=== PATIENT | female | born 1980 | race Caucasian/White ===

== ENCOUNTER 2018-05-01 22:45 | Emergency (ER) | payer OTHER ==
[2018-05-02] MEDS ORDERED: diphenhydrAMINE 50 MG/ML 1 ML VIAL IVP STA (00:10)
[2018-05-02] MEDS ORDERED: SODIUM CHLORIDE 0.9% 500 ML 500 ML IV STA (00:10)
[2018-05-02] MEDS ORDERED: METOCLOPRAMIDE 5 MG/ML 2 ML VIAL IVP STA (00:10)
[2018-05-02] MEDS ORDERED: ENALAPRILAT 1.25 MG/ML 1 ML VIAL IVP STA (00:10)
[2018-05-02] MEDS ORDERED: LISINOPRIL 20 MG TAB PO STA (00:20)
[2018-05-02] MEDS ORDERED: IBUPROFEN 800 MG TAB PO STA (00:20)
[2018-05-02] MEDS ORDERED: ACETAMINOPHEN TAB 325 MG TAB PO STA (00:20)
--- NOTE | 2018-05-02 00:22 | ED ---
Headache HPI - General Chief Complaint: Headache Stated Complaint: headache Time Seen by Provider: 05/02/18 00:09 Mode of arrival: ambulatory Limitations: no limitations - History of Present Illness Initial Comments: to 38-year-old woman with history of hypertension and previous headaches, who presents to be evaluated for headache. Patient states that the pain is aching, bifrontal, moderate intensity. She states she has had these previously especially when her blood pressure is out of control. She states that she has run out of her usual medication as she hasn't been able to see her physician for a couple of months. Patient denies any new symptoms. This is not the worst headache she has ever had. She does have some associated photophobia. No fever or chills, neck stiffness, or neurologic complaints. He did try taking some aspirin at home which only gave some very minimal relief. Complaint: headache -: hour(s) Onset Description: gradual Location: right, left, frontal Severity: moderate Quality: aching Consistency: constant Improves With: nothing Worsens With: light Context: occurred at rest Associated Symptoms: photophobia Treatments Prior to Arrival: other (Aspirin) - Related Data Home Medications Medication Instructions Recorded Confirmed Lisinopril [Zestril] 5 mg PO DAILY 10/16/14 05/01/18 Previous Rx's Medication Instructions Recorded Lisinopril 20 mg PO DAILY #30 tab 05/02/18 Allergies Allergy/AdvReac Type Severity Reaction Status Date / Time codeine Allergy Itching Verified 05/01/18 22:53 Review of Systems ROS Statement: Those systems with pertinent positive or pertinent negative responses have been documented in the HPI. ROS Other: All systems not noted in ROS Statement are negative. Constitutional: Denies: fever, chills, weakness Eyes: Denies: eye pain, vision change ENT: Denies: ear pain, hearing loss Respiratory: Denies: cough Cardiovascular: Denies: chest pain, palpitations, syncope Gastrointestinal: Denies: abdominal pain, nausea, vomiting Musculoskeletal: Denies: back pain Skin: Denies: rash Neurological: Reports: headache. Denies: weakness, numbness, paresthesias, confusion, vertigo Past Medical History Past Medical History: Hypertension History of Any Multi-Drug Resistant Organisms: None Reported Past Surgical History: Section, Hernia Repair Past Psychological History: No Psychological Hx Reported Smoking Status: Former smoker Past Alcohol Use History: Occasional Past Drug Use History: None Reported General Exam Limitations: no limitations General appearance: alert, in no apparent distress, obese Head exam: Present: atraumatic, normocephalic Eye exam: Present: normal appearance. Absent: scleral icterus, conjunctival injection Pupils: Present: other (Unable to perform funduscopic exam secondary to photophobia) ENT exam: Present: normal oropharynx, mucous membranes moist Neck exam: Present: full ROM. Absent: tenderness, meningismus Respiratory exam: Present: normal lung sounds bilaterally. Absent: respiratory distress, wheezes, rales, rhonchi, stridor Cardiovascular Exam: Present: regular rate, normal rhythm, normal heart sounds. Absent: systolic murmur, diastolic murmur, rubs, gallop GI/Abdominal exam: Present: soft. Absent: tenderness, pulsatile mass Extremities exam: Present: normal inspection. Absent: pedal edema, calf tenderness Neurological exam: Present: alert, oriented X3, CN II-XII intact. Absent: motor sensory deficit Skin exam: Present: warm, dry, intact, normal color. Absent: rash Course Vital Signs 05/01/18 22:51 Temperature 97.9 F Pulse Rate 83 Respiratory 20 Rate Blood Pressure 189/108 O2 Sat by Pulse 99 Oximetry Disposition Clinical Impression: Hypertension Disposition: HOME SELF-CARE Condition: Good Instructions: Acute Headache (ED), Hypertension (ED) Prescriptions: Lisinopril 20 mg PO DAILY #30 tab Is patient prescribed a controlled substance at d/c from ED?: No Referrals: Elizabeth Mata MD [Primary Care Provider] - 1-2 days
[2018-05-02 01:43] VITALS: BP 146/86; PULSE 69; RESP 18
[2018-05-02 02:02] VITALS: TEMP 98
== END 2018-05-02 02:02 | disposition home or self-care (01) ==
LOC: EC 22:45
DX: I10 Essential (primary) hypertension (principal); R51 Headache; H53.149 Visual discomfort, unspecified; Z87.891 Personal history of nicotine dependence; Z79.899 Other long term (current) drug therapy; Z88.5 Allergy status to narcotic agent
CPT/HCPCS: 99283

== ENCOUNTER 2019-01-14 07:46 | Emergency (ER) | payer OTHER ==
[2019-01-14 07:53] VITALS: BP 136/88; PULSE 97; RESP 16; TEMP 98.7
[2019-01-14] MEDS ORDERED: SODIUM CHLORIDE 0.9% 1,000 ML IV STA (07:54)
[2019-01-14] MEDS ORDERED: KETOROLAC 30 MG/ML 1 ML VIAL IVP STA (08:06)
--- NOTE | 2019-01-14 08:10 | ED ---
Abdominal Pain HPI - General Chief Complaint: Abdominal Pain Stated Complaint: LT side flank pain Time Seen by Provider: 01/14/19 07:53 Source: patient, RN notes reviewed Mode of arrival: ambulatory Limitations: no limitations - History of Present Illness Initial Comments: 38-year-old female presents emergency Department chief complaint of left lower abdominal pain. Patient states that this pain has been ongoing since yesterday around noon. Patient states his Appointment with unbearable at this first when she sits forward or walks. Patient has no back pain no side pain. Patient denies any nausea vomiting diarrhea constipation and she has had a prior hernia repair on the right no other prior abdominal surgeries. Patient denies any chance she currently isn't her menstrual cycle. Patient denies any history of diverticulitis or colitis - Related Data Home Medications Medication Instructions Recorded Confirmed Lisinopril [Zestril] 5 mg PO DAILY 10/16/14 05/01/18 Previous Rx's Medication Instructions Recorded Lisinopril 20 mg PO DAILY #30 tab 05/02/18 Ciprofloxacin HCl [Cipro] 500 mg PO Q12HR #20 tablet 01/14/19 metroNIDAZOLE [Flagyl] 500 mg PO TID #30 tab 01/14/19 Allergies Allergy/AdvReac Type Severity Reaction Status Date / Time codeine Allergy Itching Verified 01/14/19 07:53 Review of Systems ROS Statement: Those systems with pertinent positive or pertinent negative responses have been documented in the HPI. ROS Other: All systems not noted in ROS Statement are negative. Past Medical History Past Medical History: Hypertension History of Any Multi-Drug Resistant Organisms: None Reported Past Surgical History: Section, Hernia Repair Past Psychological History: No Psychological Hx Reported Smoking Status: Former smoker Past Alcohol Use History: Occasional Past Drug Use History: None Reported General Exam Limitations: no limitations General appearance: alert, in no apparent distress Head exam: Present: atraumatic, normocephalic, normal inspection Eye exam: Present: normal appearance, PERRL, EOMI. Absent: scleral icterus, conjunctival injection, periorbital swelling ENT exam: Present: normal exam, normal oropharynx, mucous membranes moist Neck exam: Present: normal inspection. Absent: tenderness, meningismus, lymphadenopathy Respiratory exam: Present: normal lung sounds bilaterally. Absent: respiratory distress, wheezes, rales, rhonchi, stridor Cardiovascular Exam: Present: regular rate, normal rhythm, normal heart sounds. Absent: systolic murmur, diastolic murmur, rubs, gallop, clicks GI/Abdominal exam: Present: soft, tenderness (Moderate left lower quadrant), normal bowel sounds. Absent: distended, guarding, rebound, rigid Back exam: Absent: CVA tenderness (R), CVA tenderness (L) Neurological exam: Present: alert, oriented X3, CN II-XII intact Skin exam: Present: warm, dry, intact, normal color. Absent: rash Course Vital Signs 01/14/19 07:51 Temperature 98.7 F Pulse Rate 97 Respiratory 16 Rate Blood Pressure 136/88 O2 Sat by Pulse 98 Oximetry Medical Decision Making - Medical Decision Making 38-year-old female presented from for left lower abdominal pain. Patient has mild to moderate uncomfortable. Diverticulitis. Patient started on Cipro and Flagyl. Patient we discharged with tramadol starter pack. Patient will follow- up with PCP return for any worsening symptoms. - Lab Data Result diagrams: 01/14/19 08:17 01/14/19 08:17 Lab Results 01/14/19 01/14/19 01/14/19 Range/Units 08:17 08:17 08:35 WBC 14.5 H (3.8-10.6) k/uL RBC 4.15 (3.80-5.40) m/uL Hgb 12.6 (11.4-16.0) gm/dL Hct 37.8 (34.0-46.0) % MCV 91.0 (80.0-100.0) fL MCH 30.4 (25.0-35.0) pg MCHC 33.4 (31.0-37.0) g/dL RDW 13.6 (11.5-15.5) % Plt Count 230 (150-450) k/uL Neutrophils % 79 % Lymphocytes % 12 % Monocytes % 7 % Eosinophils % 1 % Basophils % 0 % Neutrophils # 11.5 H (1.3-7.7) k/uL Lymphocytes # 1.7 (1.0-4.8) k/uL Monocytes # 1.0 (0-1.0) k/uL Eosinophils # 0.2 (0-0.7) k/uL Basophils # 0.0 (0-0.2) k/uL Sodium 140 (137-145) mmol/L Potassium 4.4 (3.5-5.1) mmol/L Chloride 108 H (98-107) mmol/L Carbon Dioxide 22 (22-30) mmol/L Anion Gap 10 mmol/L BUN 13 (7-17) mg/dL Creatinine 0.79 (0.52-1.04) mg/dL Est GFR (CKD-EPI)AfAm >90 (>60 ml/min/1.73 sqM) Est GFR (CKD-EPI)NonAf >90 (>60 ml/min/1.73 sqM) Glucose 132 H (74-99) mg/dL Calcium 9.1 (8.4-10.2) mg/dL Total Bilirubin 0.9 (0.2-1.3) mg/dL AST 21 (14-36) U/L ALT 22 (9-52) U/L Alkaline Phosphatase 59 (38-126) U/L Total Protein 7.0 (6.3-8.2) g/dL Albumin 4.0 (3.5-5.0) g/dL Lipase 59 (23-300) U/L Urine Color Urine Appearance (Clear) Urine pH (5.0-8.0) Ur Specific [place] (1.001-1.035) Urine Protein (Negative) Urine Glucose (UA) (Negative) Urine Ketones (Negative) Urine Blood (Negative) Urine Nitrite (Negative) Urine Bilirubin (Negative) Urine Urobilinogen (<2.0) mg/dL Ur Leukocyte Esterase (Negative) Urine RBC (0-5) /hpf Urine WBC (0-5) /hpf Ur Squamous Epith Cells (0-4) /hpf Urine Mucus (None) /hpf Urine HCG, Qual Not Detected (Not Detectd) 01/14/19 Range/Units 08:35 WBC (3.8-10.6) k/uL RBC (3.80-5.40) m/uL Hgb (11.4-16.0) gm/dL Hct (34.0-46.0) % MCV (80.0-100.0) fL MCH (25.0-35.0) pg MCHC (31.0-37.0) g/dL RDW (11.5-15.5) % Plt Count (150-450) k/uL Neutrophils % % Lymphocytes % % Monocytes % % Eosinophils % % Basophils % % Neutrophils # (1.3-7.7) k/uL Lymphocytes # (1.0-4.8) k/uL Monocytes # (0-1.0) k/uL Eosinophils # (0-0.7) k/uL Basophils # (0-0.2) k/uL Sodium (137-145) mmol/L Potassium (3.5-5.1) mmol/L Chloride (98-107) mmol/L Carbon Dioxide (22-30) mmol/L Anion Gap mmol/L BUN (7-17) mg/dL Creatinine (0.52-1.04) mg/dL Est GFR (CKD-EPI)AfAm (>60 ml/min/1.73 sqM) Est GFR (CKD-EPI)NonAf (>60 ml/min/1.73 sqM) Glucose (74-99) mg/dL Calcium (8.4-10.2) mg/dL Total Bilirubin (0.2-1.3) mg/dL AST (14-36) U/L ALT (9-52) U/L Alkaline Phosphatase (38-126) U/L Total Protein (6.3-8.2) g/dL Albumin (3.5-5.0) g/dL Lipase (23-300) U/L Urine Color Yellow Urine Appearance Cloudy H (Clear) Urine pH 5.5 (5.0-8.0) Ur Specific [place] 1.023 (1.001-1.035) Urine Protein Trace H (Negative) Urine Glucose (UA) Negative (Negative) Urine Ketones Negative (Negative) Urine Blood Small H (Negative) Urine Nitrite Negative (Negative) Urine Bilirubin Negative (Negative) Urine Urobilinogen <2.0 (<2.0) mg/dL Ur Leukocyte Esterase Negative (Negative) Urine RBC 1 (0-5) /hpf Urine WBC 5 (0-5) /hpf Ur Squamous Epith Cells 10 H (0-4) /hpf Urine Mucus Occasional H (None) /hpf Urine HCG, Qual (Not Detectd) Disposition Clinical Impression: Abdominal pain, Diverticulitis Disposition: HOME SELF-CARE Condition: Stable Instructions (If sedation given, give patient instructions): Diverticulitis Diet (ED), Diverticulitis (ED) Additional Instructions: Please return to the Emergency Department if symptoms worsen or any other concerns. Prescriptions: Ciprofloxacin HCl [Cipro] 500 mg PO Q12HR #20 tablet metroNIDAZOLE [Flagyl] 500 mg PO TID #30 tab Is patient prescribed a controlled substance at d/c from ED?: No Referrals: Elizabeth Mata MD [Primary Care Provider] - 1-2 days Time of Disposition: 09:22
[2019-01-14 08:25] LABS: Basophils % (A) 0 %; Eosinophils # (A) 0.2 k/uL (0-0.7); Eosinophils % (A) 1 %; HCT 37.8 % (34.0-46.0); HGB 12.6 gm/dL (11.4-16.0); Lymphocytes # (A) 1.7 k/uL (1.0-4.8); Lymphocytes % (A) 12 %; MCH 30.4 pg (25.0-35.0); MCHC 33.4 g/dL (31.0-37.0); Mean Platelet Volume 7.9; Monocytes % (A) 7 %; Neutrophils # (A) 11.5 k/uL (1.3-7.7); Neutrophils % (A) 79 %; Platelet Count 230 k/uL (150-450); RBC 4.15 m/uL (3.80-5.40); RDW 13.6 % (11.5-15.5); WBC 14.5 k/uL (3.8-10.6)
[2019-01-14 08:34] LABS: African American GFR (CKD) >90 (>60 ml/min/1.73 sqM); Anion Gap 10 mmol/L; Blood Urea Nitrogen 13 mg/dL (7-17); Calcium 9.1 mg/dL (8.4-10.2); Carbon Dioxide 22 mmol/L (22-30); Chloride 108 mmol/L (98-107); Glucose 132 mg/dL (74-99); Lipase 59 U/L (23-300); Sodium 140 mmol/L (137-145); Total Bilirubin 0.9 mg/dL (0.2-1.3)
[2019-01-14 08:36] LABS: ALT 22 U/L (9-52); AST 21 U/L (14-36); Potassium 4.4 mmol/L (3.5-5.1)
[2019-01-14 08:37] LABS: Alkaline Phosphatase 59 U/L (38-126)
[2019-01-14 08:43] LABS: Appearance,Urine Cloudy (Clear); Bilirubin,Urine Negative (Negative); Blood,Urine Small (Negative); Color,Urine Yellow; Glucose,Urine (UA) Negative (Negative); Ketones,Urine Negative (Negative); Leukocyte Esterase,Urine Negative (Negative); Mucus,Urine Occasional /hpf; Nitrite,Urine Negative (Negative); PH, Urine 5.5 (5.0-8.0); Protein,Urine Trace (Negative); RBC,Urine 1 /hpf (0-5); Specific Gravity,Urine 1.023 (1.001-1.035); Squamous Epithelial Cell,Urine 10 /hpf (0-4); Urobilinogen,Urine <2.0 mg/dL (<2.0)
--- NOTE | 2019-01-14 09:14 | CT ---
EXAMINATION TYPE: CT abdomen pelvis w con DATE OF EXAM: 01/14/2019 HISTORY: LLQ pain CT DLP: 1877mGycm Automated Exposure Control for Dose Reduction was Utilized. CONTRAST: CT scan of the abdomen and pelvis is performed without oral but with IV Contrast, patient injected wi th 100 mL of Isovue 300. COMPARISON: None FINDINGS: LUNG BASES: No significant abnormality is appreciated. LIVER/GB: No significant abnormality is appreciated. PANCREAS: No significant abnormality is seen. SPLEEN: No significant abnormality is seen. ADRENALS: No significant abnormality is seen. KIDNEYS: No significant abnormality is seen. BOWEL: Evaluation bowel slightly suboptimal secondary to lack of enteric contrast. Small hiatal herni a is present axial image 7. Stomach is poorly distended but suboptimally evaluated. Appendix not well -visualized and may be surgically absent. There are few scattered diverticula throughout the entire c olon including right-sided colonic diverticula. There is moderate wall thickening with mild/moderate ill-defined fluid and fat stranding in the left lower quadrant at junction of left and sigmoid colon seen best near coronal image 38 and axial image 52. No well-formed fluid collection or abscess is see n. No pneumoperitoneum is noted. UTERUS/ADNEXA: Anteverted uterus is present tubal ligation clip in the left periphery is seen. Displa arnulfo clip into the anterior pelvis just right of midline axial image 68 is noted. Ovaries are normal i n size. LYMPH NODES: No greater than 1cm abdominal or pelvic lymph nodes are appreciated. OSSEOUS STRUCTURES: Sclerosis running sacroiliac joints inferiorly, left greater than right favors os teitis condensans ilii given no significant asymmetric narrowing is present bilaterally. OTHER: Tiny fat-containing umbilical hernia is seen. IMPRESSION: CT findings consistent with a mild to moderate uncomplicated acute diverticulitis near th e junction of left and sigmoid colon in the left lower quadrant as detailed above.
[2019-01-14] MEDS ORDERED: traMADol 50 MG STARTER PACK 3 TAB BTL PO STA (09:22)
== END 2019-01-14 09:36 | disposition home or self-care (01) ==
LOC: EC 07:46
DX: K57.92 Diverticulitis of intestine, part unspecified, without perforation or abscess without bleeding (principal); I10 Essential (primary) hypertension; Z87.891 Personal history of nicotine dependence; Z79.899 Other long term (current) drug therapy; Z88.5 Allergy status to narcotic agent
CPT/HCPCS: 36415; 80053; 83690; 85025; 81001; 81025; 74177; 99284; 96374; 96361; J1885; Q9967

== ENCOUNTER 2019-01-17 12:52 | Inpatient (IN) | payer OTHER ==
[2019-01-17] MEDS ORDERED: IOPAMIDOL-300 CONTRAST 30 ML VIAL (ORAL USE) PO PRN (13:26)
[2019-01-17] MEDS ORDERED: SODIUM CHLORIDE 0.9% 1,000 ML IV ONE (13:26)
[2019-01-17] MEDS ORDERED: ONDANSETRON 4 MG/2 ML VIAL IVP STA (13:26)
[2019-01-17] MEDS ORDERED: traMADol 50 MG TAB PO STA (13:31)
--- NOTE | 2019-01-17 13:35 | ED ---
Abdominal Pain HPI - General Chief Complaint: Abdominal Pain Stated Complaint: Constipation Time Seen by Provider: 01/17/19 13:18 Source: patient, family Mode of arrival: ambulatory Limitations: no limitations - History of Present Illness Initial Comments: Patient is a 38-year-old female presents with a chief complaint of left lower quadrant abdominal pain. The patient was evaluated on Saturday and diagnosed with diverticulitis. She was started on antibiotics and discharged home. Patient states that since that time despite the antibiotic she has not improved. She has worsening pain in the left lower quadrant. She states she has had subjective fevers and chills at night. Her last bowel movement was Saturday. Her pain is aggravated by movement and certain positions. There are no alleviating factors. - Related Data Home Medications Medication Instructions Recorded Confirmed Lisinopril [Zestril] 5 mg PO DAILY 10/16/14 05/01/18 Previous Rx's Medication Instructions Recorded Lisinopril 20 mg PO DAILY #30 tab 05/02/18 Ciprofloxacin HCl [Cipro] 500 mg PO Q12HR #20 tablet 01/14/19 metroNIDAZOLE [Flagyl] 500 mg PO TID #30 tab 01/14/19 Allergies Allergy/AdvReac Type Severity Reaction Status Date / Time codeine Allergy Itching Verified 01/14/19 07:53 Review of Systems ROS Statement: Those systems with pertinent positive or pertinent negative responses have been documented in the HPI. ROS Other: All systems not noted in ROS Statement are negative. Constitutional: Reports: fever, chills Gastrointestinal: Reports: abdominal pain, nausea, vomiting, constipation Past Medical History Past Medical History: Hypertension History of Any Multi-Drug Resistant Organisms: None Reported Past Surgical History: Section, Hernia Repair Past Psychological History: No Psychological Hx Reported Smoking Status: Former smoker Past Alcohol Use History: Occasional Past Drug Use History: None Reported General Exam Limitations: no limitations General appearance: alert, in no apparent distress Head exam: Present: atraumatic, normocephalic Eye exam: Present: normal appearance ENT exam: Present: normal exam Neck exam: Present: normal inspection Respiratory exam: Present: normal lung sounds bilaterally. Absent: respiratory distress Cardiovascular Exam: Present: regular rate, normal rhythm GI/Abdominal exam: Present: soft, tenderness (Patient has tenderness in the left lower quadrant. There are no overlying skin changes, no crepitus felt). Absent: distended Rectal exam: Present: deferred External exam: Present: normal external exam Extremities exam: Present: normal inspection Back exam: Present: normal inspection Neurological exam: Present: alert, oriented X3, CN II-XII intact Psychiatric exam: Present: normal affect, normal mood Skin exam: Present: warm, dry, intact Course Vital Signs 01/17/19 01/17/19 13:06 14:58 Temperature 97.6 F Pulse Rate 82 63 Respiratory 18 18 Rate Blood Pressure 136/81 135/82 O2 Sat by Pulse 97 97 Oximetry Medical Decision Making - Medical Decision Making Patient presents with a chief complaint of abdominal pain and a recent diagnosis of diverticulitis. Despite antibiotic therapy, she is not improved. Initial vital signs are stable, patient is in mild distress secondary to pain. She will be evaluated with basic labs including a computed tomography scan of the abdomen and pelvis with IV and oral contrast. Review of her recent visits showed a CAT scan without contrast that showed evidence of mild to moderate diverticulitis. 2:55 PM Lab evaluation of this patient shows red blood cells of 11.7 with neutrophils of 8.8. Urinalysis shows evidence of infection however labs are otherwise unremarkable. On reevaluation, the patient is comfortable. Computed tomography scan of the abdomen and pelvis shows free air within the abdominal cavity likely secondary to microperforation of the affected area. Results discussed with the patient, she was started on Zosyn, made nothing by mouth, and started on 100 mL per hour of normal saline. We'll discuss with surgery on-call. 3 PM Case discussed with Dr. Daugherty who accepts admission with Dr. Dent on consult for medical management. Patient aware of the findings and care plan, she is agreeable. - Lab Data Result diagrams: 01/17/19 13:45 01/17/19 13:45 Lab Results 01/17/19 01/17/19 01/17/19 Range/Units 13:45 13:45 13:52 WBC 11.7 H (3.8-10.6) k/uL RBC 4.12 (3.80-5.40) m/uL Hgb 12.4 (11.4-16.0) gm/dL Hct 38.0 (34.0-46.0) % MCV 92.0 (80.0-100.0) fL MCH 30.2 (25.0-35.0) pg MCHC 32.8 (31.0-37.0) g/dL RDW 12.5 (11.5-15.5) % Plt Count 266 (150-450) k/uL Neutrophils % 75 % Lymphocytes % 14 % Monocytes % 7 % Eosinophils % 2 % Basophils % 0 % Neutrophils # 8.8 H (1.3-7.7) k/uL Lymphocytes # 1.6 (1.0-4.8) k/uL Monocytes # 0.8 (0-1.0) k/uL Eosinophils # 0.3 (0-0.7) k/uL Basophils # 0.1 (0-0.2) k/uL Sodium 140 (137-145) mmol/L Potassium 4.0 (3.5-5.1) mmol/L Chloride 105 (98-107) mmol/L Carbon Dioxide 24 (22-30) mmol/L Anion Gap 11 mmol/L BUN 9 (7-17) mg/dL Creatinine 0.82 (0.52-1.04) mg/dL Est GFR (CKD-EPI)AfAm >90 (>60 ml/min/1.73 sqM) Est GFR (CKD-EPI)NonAf >90 (>60 ml/min/1.73 sqM) Glucose 111 H (74-99) mg/dL Calcium 9.2 (8.4-10.2) mg/dL Total Bilirubin 0.5 (0.2-1.3) mg/dL AST 12 L (14-36) U/L ALT 23 (9-52) U/L Alkaline Phosphatase 57 (38-126) U/L Total Protein 6.7 (6.3-8.2) g/dL Albumin 3.9 (3.5-5.0) g/dL Lipase 52 (23-300) U/L Urine Color Urine Appearance (Clear) Urine pH (5.0-8.0) Ur Specific [place] (1.001-1.035) Urine Protein (Negative) Urine Glucose (UA) (Negative) Urine Ketones (Negative) Urine Blood (Negative) Urine Nitrite (Negative) Urine Bilirubin (Negative) Urine Urobilinogen (<2.0) mg/dL Ur Leukocyte Esterase (Negative) Urine RBC (0-5) /hpf Urine WBC (0-5) /hpf Ur Squamous Epith Cells (0-4) /hpf Urine Bacteria (None) /hpf Urine Mucus (None) /hpf Urine HCG, Qual Not Detected (Not Detectd) 01/17/19 Range/Units 13:52 WBC (3.8-10.6) k/uL RBC (3.80-5.40) m/uL Hgb (11.4-16.0) gm/dL Hct (34.0-46.0) % MCV (80.0-100.0) fL MCH (25.0-35.0) pg MCHC (31.0-37.0) g/dL RDW (11.5-15.5) % Plt Count (150-450) k/uL Neutrophils % % Lymphocytes % % Monocytes % % Eosinophils % % Basophils % % Neutrophils # (1.3-7.7) k/uL Lymphocytes # (1.0-4.8) k/uL Monocytes # (0-1.0) k/uL Eosinophils # (0-0.7) k/uL Basophils # (0-0.2) k/uL Sodium (137-145) mmol/L Potassium (3.5-5.1) mmol/L Chloride (98-107) mmol/L Carbon Dioxide (22-30) mmol/L Anion Gap mmol/L BUN (7-17) mg/dL Creatinine (0.52-1.04) mg/dL Est GFR (CKD-EPI)AfAm (>60 ml/min/1.73 sqM) Est GFR (CKD-EPI)NonAf (>60 ml/min/1.73 sqM) Glucose (74-99) mg/dL Calcium (8.4-10.2) mg/dL Total Bilirubin (0.2-1.3) mg/dL AST (14-36) U/L ALT (9-52) U/L Alkaline Phosphatase (38-126) U/L Total Protein (6.3-8.2) g/dL Albumin (3.5-5.0) g/dL Lipase (23-300) U/L Urine Color Yellow Urine Appearance Cloudy H (Clear) Urine pH 5.5 (5.0-8.0) Ur Specific [place] 1.023 (1.001-1.035) Urine Protein Trace H (Negative) Urine Glucose (UA) Negative (Negative) Urine Ketones 1+ H (Negative) Urine Blood Small H (Negative) Urine Nitrite Negative (Negative) Urine Bilirubin Negative (Negative) Urine Urobilinogen 2.0 (<2.0) mg/dL Ur Leukocyte Esterase Moderate H (Negative) Urine RBC 2 (0-5) /hpf Urine WBC 4 (0-5) /hpf Ur Squamous Epith Cells 13 H (0-4) /hpf Urine Bacteria Rare H (None) /hpf Urine Mucus Moderate H (None) /hpf Urine HCG, Qual (Not Detectd) Disposition Clinical Impression: Acute abdomen, Bowel perforation, Diverticulitis Disposition: ADMITTED IP TO THIS HOSP Condition: Fair Is patient prescribed a controlled substance at d/c from ED?: No Referrals: Elizabeth Mata MD [Primary Care Provider] - 1-2 days
[2019-01-17 13:54] LABS: Basophils # (A) 0.1 k/uL (0-0.2); Basophils % (A) 0 %; Eosinophils # (A) 0.3 k/uL (0-0.7); Eosinophils % (A) 2 %; HGB 12.4 gm/dL (11.4-16.0); Lymphocytes # (A) 1.6 k/uL (1.0-4.8); Lymphocytes % (A) 14 %; MCH 30.2 pg (25.0-35.0); MCHC 32.8 g/dL (31.0-37.0); Mean Platelet Volume 7.2; Monocytes # (A) 0.8 k/uL (0-1.0); Monocytes % (A) 7 %; Neutrophils # (A) 8.8 k/uL (1.3-7.7); Neutrophils % (A) 75 %; Platelet Count 266 k/uL (150-450); RBC 4.12 m/uL (3.80-5.40); RDW 12.5 % (11.5-15.5); WBC 11.7 k/uL (3.8-10.6)
[2019-01-17 14:09] LABS: ALT 23 U/L (9-52); AST 12 U/L (14-36); African American GFR (CKD) >90 (>60 ml/min/1.73 sqM); Albumin 3.9 g/dL (3.5-5.0); Alkaline Phosphatase 57 U/L (38-126); Anion Gap 11 mmol/L; Blood Urea Nitrogen 9 mg/dL (7-17); Calcium 9.2 mg/dL (8.4-10.2); Carbon Dioxide 24 mmol/L (22-30); Chloride 105 mmol/L (98-107); Glucose 111 mg/dL (74-99); Lipase 52 U/L (23-300); Sodium 140 mmol/L (137-145); Total Bilirubin 0.5 mg/dL (0.2-1.3); Total Protein 6.7 g/dL (6.3-8.2)
[2019-01-17 14:10] LABS: Appearance,Urine Cloudy (Clear); Bacteria,Urine Rare /hpf; Bilirubin,Urine Negative (Negative); Blood,Urine Small (Negative); Color,Urine Yellow; Glucose,Urine (UA) Negative (Negative); Ketones,Urine 1+ (Negative); Leukocyte Esterase,Urine Moderate (Negative); Mucus,Urine Moderate /hpf; Nitrite,Urine Negative (Negative); PH, Urine 5.5 (5.0-8.0); Protein,Urine Trace (Negative); RBC,Urine 2 /hpf (0-5); Specific Gravity,Urine 1.023 (1.001-1.035); Squamous Epithelial Cell,Urine 13 /hpf (0-4); WBC,Urine 4 /hpf (0-5)
[2019-01-17] MEDS ORDERED: PIPERACILLIN-TAZOBACTAM 3.375 GM in SODIUM CHLORIDE 0.9% 100 ML IVPB STA (14:52)
--- NOTE | 2019-01-17 14:54 | CT ---
EXAMINATION TYPE: CT abdomen pelvis w con DATE OF EXAM: 01/17/2019 COMPARISON: 01/14/2019 INDICATION: LLQ pain DLP: 2038.9 mGycm, Automated exposure control for dose reduction was used. CONTRAST: 100 mL of Isovue 300. Study performed without Oral Contrast TECHNIQUE: Axial images were obtained from above the diaphragm to the pubic rami in the axial plane a t 5 mm thick sections. Reconstructed images are reviewed on the computer in the coronal plane. FINDINGS: Limited CT sections are obtained the lung bases. The lung bases are clear. CT ABDOMEN: Free air is evident adjacent to the liver and the diaphragm. Scattered additional areas o f nondependent air present within the abdomen. Liver: Normal Spleen: Normal Pancreas: Normal Adrenal glands: The adrenal glands are normal. Gallbladder: Normal Kidneys: No masses are evident. No hydronephrosis is present. No cysts are present. Aorta: Normal Inferior vena cava: Normal. CT PELVIS: Inflammatory changes are again evident in adjacent to the proximal sigmoid colon. Small amount of lily e air is adjacent within the mesentery. Large diverticulum is lateral. Inflammatory changes are simil ar to prior study. No abscess formation is evident. Appendix: Normal as visualized. Urinary bladder: Normal. Genitourinary structures: Uterus is normal. Follicles are present bilaterally. There may be a 1.6 cm cyst on the left ovary. No free fluid is within the pelvis. Osseous structures: No suspicious lytic or sclerotic lesions. There are increased areas of sclerosis adjacent to the sacroiliac joints which could reflect some sacroiliitis. IMPRESSIONS: 1. Interval development of free air within the abdomen. 2. Acute diverticulitis remains at the level of the sigmoid colon is likely the source of the free ai r. 3. Report was called to emergency room physician Dr. Soria by Dr. Oliver by telephone at [id number] [email or web address] 01/17/2019
[2019-01-17] MEDS ORDERED: NALOXONE 0.4 MG/ML 1 ML VIAL IV PRN (15:00)
[2019-01-17] MEDS ORDERED: traMADol 50 MG TAB PO PRN (15:00)
[2019-01-17] MEDS ORDERED: ONDANSETRON 4 MG/2 ML VIAL IVP PRN (15:00)
[2019-01-17] MEDS: SODIUM CHLORIDE 0.9% 1,000 ML IV SCH (15:26)
[2019-01-17] MEDS ORDERED: HYDROcodone/APAP 7.5-325MG 1 EACH TAB PO PRN (17:42)
[2019-01-17] MEDS ORDERED: HYDROmorphone 1 MG/ML 1 ML SYRINGE IM PRN (17:42)
--- NOTE | 2019-01-17 17:48 | P.GSHP ---
History of Present Illness H&P Date: 01/17/19 Chief Complaint: Complicated diverticulitis 38-year-old female began experiencing left lower quadrant abdominal pain on Saturday. By Saturday morning the pain was much more severe and she came to the hospital for evaluation. She had a CAT scan showing inflammatory changes consistent with diverticulitis involving the proximal sigmoid colon. The patient was started on oral antibiotics and discharged home. She is maintained a very light diet since that time. She has taken her antibiotics as prescribed. Denies fevers at home. She has been constipated since Saturday with no stool since that time. She is passing flatus. Today the pain was becoming more severe and came to the hospital for reevaluation. Repeat CAT scan now shows a few small foci of free intraperitoneal air within the mid abdomen and also adjacent to the left colon. The degree of inflammation at the original diverticulitis site however appears lessened. There is no abscess formation. Patient states her pain is mostly localized to the left lower quadrant. After a single dose of Toradol the patient was fairly comfortable. White blood cell count 11.7. No history of similar events. Denies rectal bleeding. - Review of Systems Comment: The patient denies any acute changes in vision or hearing, no dysphagia or odynophagia, no chest pain or shortness of breath, no dysuria or hematuria, no headache, no runny nose, no rectal bleeding or melena, no unexplained weight loss Past Medical History Past Medical History: Hypertension History of Any Multi-Drug Resistant Organisms: None Reported Past Surgical History: Section, Hernia Repair Past Psychological History: No Psychological Hx Reported Smoking Status: Former smoker Past Alcohol Use History: Occasional Past Drug Use History: None Reported - Past Family History Mother Family Medical History: AFIB Medications and Allergies Home Medications Medication Instructions Recorded Confirmed Type Lisinopril 20 mg PO DAILY #30 tab 05/02/18 01/17/19 Rx Ciprofloxacin HCl [Cipro] 500 mg PO Q12HR #20 tablet 01/14/19 01/17/19 Rx metroNIDAZOLE [Flagyl] 500 mg PO TID #30 tab 01/14/19 01/17/19 Rx Atorvastatin [Lipitor] 20 mg PO HS 01/17/19 01/17/19 History Allergies Allergy/AdvReac Type Severity Reaction Status Date / Time codeine Allergy Itching Verified 01/17/19 15:17 Surgical - Exam Vital Signs Temp Pulse Resp BP Pulse Ox 97.6 F 82 18 136/81 97 01/17/19 13:06 01/17/19 13:06 01/17/19 13:06 01/17/19 13:06 01/17/19 13:06 Physical exam: General: Well-developed, well-nourished HEENT: Normocephalic, sclerae nonicteric Abdomen: Mild tenderness diffusely, increased tenderness left lower quadrant without rebound or guarding, nondistended Extremities: No edema Neuro: Alert and oriented Results - Labs 01/17/19 13:45 01/17/19 13:45 Abnormal Lab Results - Last 24 Hours (Table) 01/17/19 01/17/19 01/17/19 Range/Units 13:45 13:45 13:52 WBC 11.7 H (3.8-10.6) k/uL Neutrophils # 8.8 H (1.3-7.7) k/uL Glucose 111 H (74-99) mg/dL AST 12 L (14-36) U/L Urine Appearance Cloudy H (Clear) Urine Protein Trace H (Negative) Urine Ketones 1+ H (Negative) Urine Blood Small H (Negative) Ur Leukocyte Esterase Moderate H (Negative) Ur Squamous Epith Cells 13 H (0-4) /hpf Urine Bacteria Rare H (None) /hpf Urine Mucus Moderate H (None) /hpf Diabetes panel 01/17/19 Range/Units 13:45 Sodium 140 (137-145) mmol/L Potassium 4.0 (3.5-5.1) mmol/L Chloride 105 (98-107) mmol/L Carbon Dioxide 24 (22-30) mmol/L BUN 9 (7-17) mg/dL Creatinine 0.82 (0.52-1.04) mg/dL Glucose 111 H (74-99) mg/dL Calcium 9.2 (8.4-10.2) mg/dL AST 12 L (14-36) U/L ALT 23 (9-52) U/L Alkaline Phosphatase 57 (38-126) U/L Total Protein 6.7 (6.3-8.2) g/dL Albumin 3.9 (3.5-5.0) g/dL Calcium panel 01/17/19 Range/Units 13:45 Calcium 9.2 (8.4-10.2) mg/dL Albumin 3.9 (3.5-5.0) g/dL Pituitary panel 01/17/19 Range/Units 13:45 Sodium 140 (137-145) mmol/L Potassium 4.0 (3.5-5.1) mmol/L Chloride 105 (98-107) mmol/L Carbon Dioxide 24 (22-30) mmol/L BUN 9 (7-17) mg/dL Creatinine 0.82 (0.52-1.04) mg/dL Glucose 111 H (74-99) mg/dL Calcium 9.2 (8.4-10.2) mg/dL Adrenal panel 01/17/19 Range/Units 13:45 Sodium 140 (137-145) mmol/L Potassium 4.0 (3.5-5.1) mmol/L Chloride 105 (98-107) mmol/L Carbon Dioxide 24 (22-30) mmol/L BUN 9 (7-17) mg/dL Creatinine 0.82 (0.52-1.04) mg/dL Glucose 111 H (74-99) mg/dL Calcium 9.2 (8.4-10.2) mg/dL Total Bilirubin 0.5 (0.2-1.3) mg/dL AST 12 L (14-36) U/L ALT 23 (9-52) U/L Alkaline Phosphatase 57 (38-126) U/L Total Protein 6.7 (6.3-8.2) g/dL Albumin 3.9 (3.5-5.0) g/dL Assessment and Plan (1) Diverticulitis Narrative/Plan: Patient with complicated diverticulitis. Clinical scenario discussed in detail with the patient and her mother. The degree of inflammation around the original site of diverticulitis is improved. We'll continue with nonoperative management at this point. Will monitor her symptoms closely. Continue broad- spectrum antibiotics. Since the patient has failed outpatient oral antibiotics will consult infectious disease for their input regarding ideal antibiotic regimen. Continue nothing by mouth except for ice chips and popsicles for now. Repeat CBC tomorrow. Consult hospitalist service for hypertension. Current Visit: Yes Status: Acute Code(s): K57.92 - DVTRCLI OF INTEST, PART UNSP, W/O PERF OR ABSCESS W/O BLEED SNOMED Code(s): 037351414
[2019-01-17] MEDS ORDERED: ANIDULAFUNGIN 200 MG in SODIUM CHLORIDE 0.9% 200 ML IVPB ONE (18:30)
[2019-01-17] MEDS: KETOROLAC 30 MG/ML 1 ML VIAL IVP SCH (18:33)
--- NOTE | 2019-01-18 00:11 | P.CONS ---
History of Present Illness - Reason for Consult Consult date: 01/17/19 - Chief Complaint abdominal pain - History of Present Illness 38-year-old woman who has a history of obesity and somewhat recent changes of increasing abdominal pain. The patient relates that she was recently in the emergency center evaluations reveal evidence of some diverticulitis evidence of any perforation and constantly she was treated with oral Levaquin and Flagyl and sent home. His metabolite therapy she had a rapid increase in pain and discomfort and also developed fever and chill. Because of that she again presented back to the emergency center where there is no evidence of perforation at the site of the diverticulitis. She Has Been Admitted and Is Being Seen by Her Surgeon. At This Time She Has Some Significant Abdominal Pain That Seems to Be Responding to the Current Pain Medications. She Is Nothing by Mouth except Ice Chips. It Is Possible That She Will Have Surgery in the near Future. The patient does have a history of some chronic abdominal pain to the left lower quadrant. She relates that she's had 3 sections and at some point in time she started to develop the occasional pulling and tight abdominal discomfort to the left lower quadrant. She was related to certain activities especially certain bending activities would result in the significant discomfort in that area that lasts for a while. The pain was never associated with fevers or chills missionary had nausea emesis or diarrhea related to it. She's had no difficulties with hematemesis melena or hematochezia. She's noticed no air passing through her bladder. There is no stool in her urine. Review of Systems HEENT:Denies headache or acute visual change. Denies sinus or mouth discomforts. Denies neck stiffness or pain. Denies significant oral cavity pain. Denies difficulty on swallowing. Lungs: Denies significant shortness of breath, cough, sputum production, or hemoptysis. Cardiovascular: Denies significant shortness of breath, chest pain, chest wall pain, orthopnea, dyspnea on exertion, syncope Gastrointestinal as per the HPI nausea without emesis, increasing abdominal pain, Musculoskeletal: denies significant myalgias or arthralgias. No new joint swelling. Denies new back pain. Skin: Denies new rash or lesions. No new ulcers or wounds are related.. Neuro: Denies headache or visual change. Denies any new onset weakness or d ifficulty with ambulation. Denies falls or seizures. Psychiatric:Denies anxiety or depression. Endocrine: Denies significant fatigue, denies significant weight loss or weight gain. Past Medical History Past Medical History: Hypertension History of Any Multi-Drug Resistant Organisms: None Reported Past Surgical History: Section, Hernia Repair Past Psychological History: No Psychological Hx Reported Additional Psychological History / Comment(s): single. has 3 children. Has 1 pet dog. does continue to smoke not tobacco. no . no travel Smoking Status: Former smoker Past Alcohol Use History: Occasional Past Drug Use History: None Reported - Past Family History Mother Family Medical History: AFIB Medications and Allergies Home Medications and Allergies Comment(s): Current Medications Hydrocodone Bitart/Acetaminophen ([place] 7.5-325) 1 each PO Q6H PRN PRN Reason: Pain Hydromorphone HCl (Dilaudid) 1 mg IM Q3HR PRN PRN Reason: Pain Sodium Chloride (Saline 0.9%) 1,000 mls @ 100 mls/hr IV .Q10H [facility] Last Admin: 01/17/19 15:26 Dose: 100 mls/hr Documented by: Anidulafungin 100 mg/ Sodium (Chloride) 100 mls @ 84 mls/hr IVPB Q24H ZEYNEP Iopamidol (Isovue-300 30 Ml (For Oral Use)) 30 ml PO Q60M PRN PRN Reason: CT Scan Stop: 01/18/19 13:27 Ketorolac Tromethamine (Toradol) 30 mg IVP Q6HR ZEYNEP Stop: 01/19/19 12:01 Last Admin: 01/17/19 18:33 Dose: 30 mg Documented by: Naloxone HCl (Narcan) 0.2 mg IV Q2M PRN PRN Reason: Opioid Reversal Ondansetron HCl (Zofran) 4 mg IVP Q8HR PRN PRN Reason: Nausea And Vomiting Tramadol HCl (Ultram) 50 mg PO Q6H PRN PRN Reason: Moderate Pain Home Medications Medication Instructions Recorded Confirmed Type Lisinopril 20 mg PO DAILY #30 tab 05/02/18 01/17/19 Rx Ciprofloxacin HCl [Cipro] 500 mg PO Q12HR #20 tablet 01/14/19 01/17/19 Rx metroNIDAZOLE [Flagyl] 500 mg PO TID #30 tab 01/14/19 01/17/19 Rx Atorvastatin [Lipitor] 20 mg PO HS 01/17/19 01/17/19 History Allergies Allergy/AdvReac Type Severity Reaction Status Date / Time codeine Allergy Itching Verified 01/17/19 15:17 Physical Exam Vitals: Vital Signs Temp Pulse Pulse Resp BP BP Pulse Ox 01/17/19 16:48 16 01/17/19 16:43 98.1 F 76 16 119/76 97 01/17/19 15:27 97.8 F 71 18 126/58 98 01/17/19 14:58 63 18 135/82 97 01/17/19 13:06 97.6 F 82 18 136/81 97 Intake and Output 01/17/19 01/17/19 01/18/19 14:59 22:59 06:59 Intake Total 320 Balance 320 Intake: Intake, IV Titration 200 Amount Anidulafungin 200 mg In 200 Sodium Chloride 0.9% 200 ml @ 84 mls/hr IVPB ONCE ONE Rx#:[id number] Oral 120 Other: Weight 121.563 kg HEENT: Anicteric conjunctiva are pink and moist nasal mucosa grossly intact without significant lesions, there is no thrush. Neck: The neck is supple without significant lymphadenopathy or thyromegaly. Lungs: Good bilateral air entry without significant crackles or wheezing. There is no significant bronchial sounds. There is no egophony or dullness. Heart: Regular rate and rhythm with an audible S1-S2, no S3 no S4. There is no significant murmur click or rub, PMI was nondisplaced. Abdomen:obese,Positive bowel sounds softdistinct tendrness to the left lower quadrant with rebound not rigid, not palapable organomegaly Extremities: The upper extremities have excellent pulses they are symmetric, no significant petechiae or telangiectasia. No splinter hemorrhages were noted. The lower extremities are free from significant edema. The peripheral pulses were 2+ and symmetric. Neuro: Awake alert oriented to person place and time. There are no acute new gross focal sensory motor deficits. Results CBC & Chem 7: 01/17/19 13:45 01/17/19 13:45 Labs: Abnormal Lab Results - Last 24 Hours (Table) 01/17/19 01/17/19 01/17/19 Range/Units 13:45 13:45 13:52 WBC 11.7 H (3.8-10.6) k/uL Neutrophils # 8.8 H (1.3-7.7) k/uL Glucose 111 H (74-99) mg/dL AST 12 L (14-36) U/L Urine Appearance Cloudy H (Clear) Urine Protein Trace H (Negative) Urine Ketones 1+ H (Negative) Urine Blood Small H (Negative) Ur Leukocyte Esterase Moderate H (Negative) Ur Squamous Epith Cells 13 H (0-4) /hpf Urine Bacteria Rare H (None) /hpf Urine Mucus Moderate H (None) /hpf Laboratory Results WBC 11.7 k/uL (3.8-10.6) H 01/17/19 13:45 RBC 4.12 m/uL (3.80-5.40) 01/17/19 13:45 Hgb 12.4 gm/dL (11.4-16.0) 01/17/19 13:45 Hct 38.0 % (34.0-46.0) 01/17/19 13:45 MCV 92.0 fL (80.0-100.0) 01/17/19 13:45 MCH 30.2 pg (25.0-35.0) 01/17/19 13:45 MCHC 32.8 g/dL (31.0-37.0) 01/17/19 13:45 RDW 12.5 % (11.5-15.5) 01/17/19 13:45 Plt Count 266 k/uL (150-450) 01/17/19 13:45 Neutrophils % 75 % 01/17/19 13:45 Lymphocytes % 14 % 01/17/19 13:45 Monocytes % 7 % 01/17/19 13:45 Eosinophils % 2 % 01/17/19 13:45 Basophils % 0 % 01/17/19 13:45 Neutrophils # 8.8 k/uL (1.3-7.7) H 01/17/19 13:45 Lymphocytes # 1.6 k/uL (1.0-4.8) 01/17/19 13:45 Monocytes # 0.8 k/uL (0-1.0) 01/17/19 13:45 Eosinophils # 0.3 k/uL (0-0.7) 01/17/19 13:45 Basophils # 0.1 k/uL (0-0.2) 01/17/19 13:45 Sodium 140 mmol/L (137-145) 01/17/19 13:45 Potassium 4.0 mmol/L (3.5-5.1) 01/17/19 13:45 Chloride 105 mmol/L (98-107) 01/17/19 13:45 Carbon Dioxide 24 mmol/L (22-30) 01/17/19 13:45 Anion Gap 11 mmol/L 01/17/19 13:45 BUN 9 mg/dL (7-17) 01/17/19 13:45 Creatinine 0.82 mg/dL (0.52-1.04) 01/17/19 13:45 Est GFR (CKD-EPI)AfAm >90 (>60 ml/min/1.73 sqM) 01/17/19 13:45 Est GFR (CKD-EPI)NonAf >90 (>60 ml/min/1.73 sqM) 01/17/19 13:45 Glucose 111 mg/dL (74-99) H 01/17/19 13:45 Calcium 9.2 mg/dL (8.4-10.2) 01/17/19 13:45 Total Bilirubin 0.5 mg/dL (0.2-1.3) 01/17/19 13:45 AST 12 U/L (14-36) L 01/17/19 13:45 ALT 23 U/L (9-52) 01/17/19 13:45 Alkaline Phosphatase 57 U/L (38-126) 01/17/19 13:45 Total Protein 6.7 g/dL (6.3-8.2) 01/17/19 13:45 Albumin 3.9 g/dL (3.5-5.0) 01/17/19 13:45 Lipase 52 U/L (23-300) 01/17/19 13:45 Urine Color Yellow 01/17/19 13:52 Urine Appearance Cloudy (Clear) H 01/17/19 13:52 Urine pH 5.5 (5.0-8.0) 01/17/19 13:52 Ur Specific [place] 1.023 (1.001-1.035) 01/17/19 13:52 Urine Protein Trace (Negative) H 01/17/19 13:52 Urine Glucose (UA) Negative (Negative) 01/17/19 13:52 Urine Ketones 1+ (Negative) H 01/17/19 13:52 Urine Blood Small (Negative) H 01/17/19 13:52 Urine Nitrite Negative (Negative) 01/17/19 13:52 Urine Bilirubin Negative (Negative) 01/17/19 13:52 Urine Urobilinogen 2.0 mg/dL (<2.0) 01/17/19 13:52 Ur Leukocyte Esterase Moderate (Negative) H 01/17/19 13:52 Urine RBC 2 /hpf (0-5) 01/17/19 13:52 Urine WBC 4 /hpf (0-5) 01/17/19 13:52 Ur Squamous Epith Cells 13 /hpf (0-4) H 01/17/19 13:52 Urine Bacteria Rare /hpf (None) H 01/17/19 13:52 Urine Mucus Moderate /hpf (None) H 01/17/19 13:52 Urine HCG, Qual Not Detected (Not Detectd) 01/17/19 13:52 CT scan - abdomen: image reviewed (diverticulitis with free air and abscess) Assessment and Plan (1) Diverticulitis Current Visit: Yes Status: Acute Code(s): K57.92 - DVTRCLI OF INTEST, PART UNSP, W/O PERF OR ABSCESS W/O BLEED SNOMED Code(s): 586448511 (2) Diverticulitis of colon with perforation Narrative/Plan: 38-year-old male who presents to hospital with increasing amounts of abdominal pain after her recent emergency room visit. Despite oral antibiotic therapy with Levaquin and Flagyl she continued to have increasing amounts of abdominal pain. She then presents to the emergency center and computed tomography scan reveals evidence of the perforation of the diverticulum. She can squeeze nubbin seen by the surgeon and consult was requested. Intravenous antibiotic therapy with Zosyn has been initiated as well as Eraxis to cover for underlying fungal pathogens. The patient is being closely monitored by surgery and there is a potential that she may need to be taken to the operating room. Hopefully with antibiotics and bowel rest she will seal the perforation and potentially could have surgery at a later time. Current Visit: Yes Status: Acute Code(s): K57.20 - DVTRCLI OF LG INT W PERFORATION AND ABSCESS W/O BLEEDING SNOMED Code(s): 71541981 (3) Fever Current Visit: Yes Status: Acute Code(s): R50.9 - FEVER, UNSPECIFIED SNOMED Code(s): 882621975 (4) Leukocytosis (leucocytosis) Current Visit: Yes Status: Acute Code(s): D72.829 - ELEVATED WHITE BLOOD CELL COUNT, UNSPECIFIED SNOMED Code(s): 809385146
[2019-01-18] MEDS: KETOROLAC 30 MG/ML 1 ML VIAL IVP SCH ×4 (01:14→18:11)
[2019-01-18] MEDS: SODIUM CHLORIDE 0.9% 1,000 ML IV SCH ×3 (02:26→21:04)
[2019-01-18 07:17] LABS: Basophils # (A) 0.1 k/uL (0-0.2); Basophils % (A) 1 %; Eosinophils # (A) 0.3 k/uL (0-0.7); Eosinophils % (A) 4 %; HCT 37.6 % (34.0-46.0); HGB 12.2 gm/dL (11.4-16.0); Lymphocytes # (A) 1.4 k/uL (1.0-4.8); Lymphocytes % (A) 21 %; MCH 30.4 pg (25.0-35.0); MCHC 32.5 g/dL (31.0-37.0); MCV 93.7 fL (80.0-100.0); Monocytes # (A) 0.5 k/uL (0-1.0); Monocytes % (A) 7 %; Neutrophils # (A) 4.5 k/uL (1.3-7.7); Neutrophils % (A) 66 %; Platelet Count 237 k/uL (150-450); RBC 4.01 m/uL (3.80-5.40); RDW 12.4 % (11.5-15.5); WBC 6.8 k/uL (3.8-10.6)
[2019-01-18 07:31] LABS: African American GFR (CKD) >90 (>60 ml/min/1.73 sqM); Anion Gap 9 mmol/L; Blood Urea Nitrogen 8 mg/dL (7-17); Calcium 8.6 mg/dL (8.4-10.2); Carbon Dioxide 24 mmol/L (22-30); Chloride 108 mmol/L (98-107); Glucose 140 mg/dL (74-99); Potassium 3.4 mmol/L (3.5-5.1); Sodium 141 mmol/L (137-145)
--- NOTE | 2019-01-18 11:40 | P.CONS ---
History of Present Illness - Reason for Consult Consult date: 01/18/19 medical management for htn Requesting physician: Herve Foster - Chief Complaint Abdominal pain - History of Present Illness This is 38 years old female who failed on conservative management with oral antibiotics outpatient for diverticulitis and presented today with worsening abdominal pain. Patient was found to have free air with microperforation and was started on IV antibiotics IV fluid and kept nothing by mouth. Patient stated that she has improved since yesterday currently denying chest pain shortness breath nausea vomiting dizziness lightheadedness or dysuria. Patient stated that she smokes weed denied alcohol or drug abuse stated that she takes her blood pressure and high cholesterol medication at home and has been complaint with her medication Review of Systems All 14 systems reviewed and negative except as above Past Medical History Past Medical History: Hypertension History of Any Multi-Drug Resistant Organisms: None Reported Past Surgical History: Section, Hernia Repair Past Psychological History: No Psychological Hx Reported Additional Psychological History / Comment(s): single. has 3 children. Has 1 pet dog. does continue to smoke not tobacco. no . no travel Smoking Status: Former smoker Past Alcohol Use History: Occasional Past Drug Use History: None Reported - Past Family History Mother Family Medical History: AFIB Medications and Allergies Home Medications Medication Instructions Recorded Confirmed Type Lisinopril 20 mg PO DAILY #30 tab 05/02/18 01/17/19 Rx Ciprofloxacin HCl [Cipro] 500 mg PO Q12HR #20 tablet 01/14/19 01/17/19 Rx metroNIDAZOLE [Flagyl] 500 mg PO TID #30 tab 01/14/19 01/17/19 Rx Atorvastatin [Lipitor] 20 mg PO HS 01/17/19 01/17/19 History Allergies Allergy/AdvReac Type Severity Reaction Status Date / Time codeine Allergy Itching Verified 01/17/19 15:17 Physical Exam Vitals: Vital Signs Temp Pulse Pulse Resp BP BP Pulse Ox 01/18/19 07:09 98.3 F 66 16 122/77 97 01/18/19 04:00 69 18 01/18/19 01:00 98.3 F 69 18 118/80 97 01/18/19 00:00 69 18 01/17/19 20:00 98.2 F 76 16 146/89 97 01/17/19 16:48 16 01/17/19 16:43 98.1 F 76 16 119/76 97 01/17/19 15:27 97.8 F 71 18 126/58 98 01/17/19 14:58 63 18 135/82 97 01/17/19 13:06 97.6 F 82 18 136/81 97 Intake and Output 01/17/19 01/18/19 01/18/19 22:59 06:59 14:59 Intake Total 620 1250 Balance 620 1250 Intake: Intake, IV Titration 200 1100 Amount Anidulafungin 200 mg In 200 200 Sodium Chloride 0.9% 200 ml @ 84 mls/hr IVPB ONCE ONE Rx#:[id number] Sodium Chloride 0.9% 1, 900 000 ml @ 100 mls/hr IV . Q10H ZEYNEP Rx#:[id number] Oral 420 150 Other: Voiding Method Toilet Toilet # Voids 1 1 Gen.: in stated age, no acute distress, obese Heart: Normal S1-S2 Lungs: Clear to auscultation bilaterally Abdomen: Soft, generalized tenderness without guarding or rebound, positive bowel sounds in all 4 quadrant no guarding or rebound Skin: No new rash Psych: Alert and oriented 3 Neuro: No focal deficit Results CBC & Chem 7: 01/18/19 06:35 01/18/19 06:35 Labs: Abnormal Lab Results - Last 24 Hours (Table) 01/17/19 01/17/19 01/17/19 Range/Units 13:45 13:45 13:52 WBC 11.7 H (3.8-10.6) k/uL Neutrophils # 8.8 H (1.3-7.7) k/uL Potassium (3.5-5.1) mmol/L Chloride (98-107) mmol/L Glucose 111 H (74-99) mg/dL AST 12 L (14-36) U/L Urine Appearance Cloudy H (Clear) Urine Protein Trace H (Negative) Urine Ketones 1+ H (Negative) Urine Blood Small H (Negative) Ur Leukocyte Esterase Moderate H (Negative) Ur Squamous Epith Cells 13 H (0-4) /hpf Urine Bacteria Rare H (None) /hpf Urine Mucus Moderate H (None) /hpf 01/18/19 Range/Units 06:35 WBC (3.8-10.6) k/uL Neutrophils # (1.3-7.7) k/uL Potassium 3.4 L (3.5-5.1) mmol/L Chloride 108 H (98-107) mmol/L Glucose 140 H (74-99) mg/dL AST (14-36) U/L Urine Appearance (Clear) Urine Protein (Negative) Urine Ketones (Negative) Urine Blood (Negative) Ur Leukocyte Esterase (Negative) Ur Squamous Epith Cells (0-4) /hpf Urine Bacteria (None) /hpf Urine Mucus (None) /hpf Assessment and Plan Assessment: 1. Acute diverticulitis failed on outpatient management complicated with perforation. 2. Leukocytosis. 3. Fever. 4. Hypokalemia with electrolyte imbalance. 5. Hypertension. 6. Hyperlipidemia. 7. Obesity. 8. Marijuana dependence. Plan discussed with general surgery regarding her current conservative treatment with IV antibiotics IV fluid and nothing by mouth status as patient is cli nically improved over the last 24 hours without significant signs of deterioration and benign physical examination of the abdomen we would like to continue conservative management repeat electrolytes in the morning and have surgery on standby for any deterioration. We'll resume home medication with holding parameters counseled patient regarding weight loss and marijuana dependence
--- NOTE | 2019-01-18 12:39 | P.PN ---
Subjective Progress Note Date: 01/18/19 Principal diagnosis: Complicated diverticulitis Patient feels better today. Overall her pain is improved. White blood cell count 6.8. She is afebrile. No tachycardia. Objective - Vital Signs Vital signs: Vital Signs Temp 98.3 F 01/18/19 07:09 Pulse 66 01/18/19 07:09 Resp 16 01/18/19 07:09 BP 122/77 01/18/19 07:09 Pulse Ox 97 01/18/19 07:09 Intake & Output 01/17/19 01/18/19 01/18/19 18:59 06:59 18:59 Intake Total 1870 Balance 1870 Weight 121.563 kg Intake: Intake, IV Titration 1300 Amount Anidulafungin 200 mg In 400 Sodium Chloride 0.9% 200 ml @ 84 mls/hr IVPB ONCE ONE Rx#:[id number] Sodium Chloride 0.9% 1, 900 000 ml @ 100 mls/hr IV . Q10H ZEYNEP Rx#:[id number] Oral 570 Other: Voiding Method Toilet # Voids 1 - Exam Abdomen: Soft, mild diffuse tenderness, slightly increased left lower quadrant - Labs CBC & Chem 7: 01/18/19 06:35 01/18/19 06:35 Labs: Abnormal Lab Results - Last 24 Hours (Table) 01/17/19 01/17/19 01/17/19 Range/Units 13:45 13:45 13:52 WBC 11.7 H (3.8-10.6) k/uL Neutrophils # 8.8 H (1.3-7.7) k/uL Potassium (3.5-5.1) mmol/L Chloride (98-107) mmol/L Glucose 111 H (74-99) mg/dL AST 12 L (14-36) U/L Urine Appearance Cloudy H (Clear) Urine Protein Trace H (Negative) Urine Ketones 1+ H (Negative) Urine Blood Small H (Negative) Ur Leukocyte Esterase Moderate H (Negative) Ur Squamous Epith Cells 13 H (0-4) /hpf Urine Bacteria Rare H (None) /hpf Urine Mucus Moderate H (None) /hpf 01/18/19 Range/Units 06:35 WBC (3.8-10.6) k/uL Neutrophils # (1.3-7.7) k/uL Potassium 3.4 L (3.5-5.1) mmol/L Chloride 108 H (98-107) mmol/L Glucose 140 H (74-99) mg/dL AST (14-36) U/L Urine Appearance (Clear) Urine Protein (Negative) Urine Ketones (Negative) Urine Blood (Negative) Ur Leukocyte Esterase (Negative) Ur Squamous Epith Cells (0-4) /hpf Urine Bacteria (None) /hpf Urine Mucus (None) /hpf Assessment and Plan (1) Diverticulitis Narrative/Plan: Continue IV antibiotics. Zosyn was not present on the medication list but will be restarted. Advance to clear liquids. Current Visit: Yes Status: Acute Code(s): K57.92 - DVTRCLI OF INTEST, PART UNSP, W/O PERF OR ABSCESS W/O BLEED SNOMED Code(s): 417340557
[2019-01-18] MEDS: HEPARIN SODIUM,PORCINE 5,000 UNIT/ML 1 ML VIAL SQ SCH ×2 (13:12→20:49)
[2019-01-18] MEDS: PIPERACILLIN-TAZOBACTAM 3.375 GM in SODIUM CHLORIDE 0.9% 100 ML IVPB SCH (13:32)
[2019-01-18] MEDS: ATORVASTATIN 20 MG TAB PO SCH (20:50)
[2019-01-18] MEDS: ANIDULAFUNGIN 100 MG in SODIUM CHLORIDE 0.9% 100 ML IVPB SCH (20:58)
[2019-01-19] MEDS: PIPERACILLIN-TAZOBACTAM 3.375 GM in SODIUM CHLORIDE 0.9% 100 ML IVPB SCH ×3 (00:44→17:22)
[2019-01-19] MEDS: KETOROLAC 30 MG/ML 1 ML VIAL IVP SCH ×3 (00:45→13:09)
[2019-01-19] MEDS ORDERED: LISINOPRIL 20 MG TAB PO SCH (09:00)
[2019-01-19] MEDS: HEPARIN SODIUM,PORCINE 5,000 UNIT/ML 1 ML VIAL SQ SCH ×2 (09:24→20:15)
[2019-01-19] MEDS: SODIUM CHLORIDE 0.9% 1,000 ML IV SCH ×2 (09:25→23:11)
--- NOTE | 2019-01-19 11:30 | P.PN ---
<Doreen Ovalle - Last Filed: 01/19/19 11:24> Subjective Progress Note Date: 01/19/19 CHIEF COMPLAINT: complicated diverticulitis HISTORY OF PRESENT ILLNESS: Patient examined this morning at the bedside. She reports pain has improved overall. She has some abdominal tenderness to the left lower quadrant. She states she occasionally has some pain that feels like a labor contraction but then goes away on its own. She denies nausea or vomiting. Tolerating clear liquid diet. Reports liquid BM this morning. PHYSICAL EXAM: VITAL SIGNS: Reviewed. GENERAL: Well-developed in no acute distress. HEENT: No sclera icterus. Extraocular movements grossly intact. Moist buccal mucosa. Head is atraumatic, normocephalic. ABDOMEN: Soft. Nondistended. Mild tenderness to left lower quadrant. NEUROLOGIC: Alert and oriented. Cranial nerves II through XII grossly intact. ASSESSMENT: 1. Acute diverticulitis with microperforation, failed outpatient therapy PLAN: 1. Continue clear liquid diet at this time. Possible advancement of diet upon re-evaluation by Dr. Foster this afternoon 2. Continue antibiotics. Infectious disease on consult. Nurse practitioner note has been reviewed by physician. Signing provider agrees with the documented findings, assessment, and plan of care. Objective - Vital Signs Vital signs: Vital Signs Temp 98.5 F 01/19/19 07:00 Pulse 77 01/19/19 07:00 Resp 17 01/19/19 07:00 BP 144/97 01/19/19 07:00 Pulse Ox 96 01/19/19 07:00 Intake & Output 01/18/19 01/19/19 01/19/19 18:59 06:59 18:59 Intake Total 1310 436 Output Total 1400 Balance -1400 1310 436 Intake: Intake, IV Titration 950 Amount Sodium Chloride 0.9% 1, 950 000 ml @ 100 mls/hr IV . Q10H [facility] Rx#:[id number] Oral 360 436 Output: Urine 1400 Other: Voiding Method Toilet Toilet # Voids 2 1 - Labs CBC & Chem 7: 01/18/19 06:35 01/18/19 06:35 <Herve Foster - Last Filed: 01/19/19 15:57> Subjective As above. Patient doing better. She is afebrile. Pain improved. She is tolerating clear liquids. She did have a small bowel movement. We'll start full liquids for dinner and advance diet tomorrow. Possible discharge tomorrow. Objective - Vital Signs Vital signs: Vital Signs Temp 98.4 F 01/19/19 15:00 Pulse 74 01/19/19 15:00 Resp 16 01/19/19 15:00 BP 146/86 01/19/19 15:00 Pulse Ox 96 01/19/19 15:00 Intake & Output 01/18/19 01/19/19 01/19/19 18:59 06:59 18:59 Intake Total 1310 672 Output Total 1400 Balance -1400 1310 672 Intake: Intake, IV Titration 950 Amount Sodium Chloride 0.9% 1, 950 000 ml @ 100 mls/hr IV . Q10H [facility] Rx#:[id number] Oral 360 672 Output: Urine 1400 Other: Voiding Method Toilet Toilet # Voids 2 1 3 - Labs CBC & Chem 7: 01/18/19 06:35 01/18/19 06:35 Assessment and Plan (1) Diverticulitis Current Visit: Yes Status: Acute Code(s): K57.92 - DVTRCLI OF INTEST, PART UNSP, W/O PERF OR ABSCESS W/O BLEED SNOMED Code(s): 404284096
[2019-01-19] MEDS ORDERED: LISINOPRIL 10 MG TAB PO STA (15:00)
--- NOTE | 2019-01-19 15:02 | P.PN ---
Subjective Progress Note Date: 01/19/19 This is 38 years old female who failed on conservative management with oral antibiotics outpatient for diverticulitis and presented today with worsening abdominal pain. Patient was found to have free air with microperforation and was started on IV antibiotics IV fluid and kept nothing by mouth. Patient stated that she has improved since yesterday currently denying chest pain shortness breath nausea vomiting dizziness lightheadedness or dysuria. Patient stated that she smokes weed denied alcohol or drug abuse stated that she takes her blood pressure and high cholesterol medication at home and has been complaint with her medication 01/19: Patient is complaining of continued abdominal pain that is shooting type in the lower left quadrant. She is currently tolerating clear liquid diet which may be advanced per general surgery. The patient has been seen by Dr. Coleman and placed on Eraxis and Zosyn. Patient has been afebrile, heart rate 77, blood pressure 144/97, pulse ox 96% on room air. Lisinopril will be increased. Objective - Vital Signs Vital signs: Vital Signs Temp 98.5 F 01/19/19 07:00 Pulse 77 01/19/19 07:00 Resp 17 01/19/19 07:00 BP 144/97 01/19/19 07:00 Pulse Ox 96 01/19/19 07:00 Intake & Output 01/18/19 01/19/19 01/19/19 18:59 06:59 18:59 Intake Total 1310 436 Output Total 1400 Balance -1400 1310 436 Intake: Intake, IV Titration 950 Amount Sodium Chloride 0.9% 1, 950 000 ml @ 100 mls/hr IV . Q10H [facility] Rx#:[id number] Oral 360 436 Output: Urine 1400 Other: Voiding Method Toilet Toilet # Voids 2 1 - Exam Review Of Systems: Constitutional: No fever, no chills, no night sweats. No weight change. No weakness, fatigue or lethargy. EENT: No headache. No blurred vision or double vision, no loss of vision. No loss of Hearing, no ringing in the ears, no dizziness. No nasal drainage or congestion. Lungs: No shortness of breath, cough, no sputum production. No wheezing. Cardiovascular: No chest pain, no lower extremity edema. No palpitations. No paroxysmal nocturnal dyspnea. No orthopnea. No lightheadedness or dizziness. No syncopal episodes. Abdominal: Reports abdominal pain. No nausea, vomiting. No diarrhea. No constipation. No loss of appetite. Genitourinary: No dysuria, increased frequency, urgency. No urinary retention. Musculoskeletal: No myalgias. No muscle weakness, no gait dysfunction, no frequent falls. No back pain. No neck pain. Integumentary: No wounds, no lesions. No rash or pruritus. No unusual bruising. No change in hair or nails. Neurologic: No aphasia. No facial droop. No change in mentation. No head injury. No headache. No paralysis. Psychiatric: No depression. No anxiety. No mood swings. Endocrine: No abnormal blood sugars. No weight change. No excessive sweating or thirst. Gen: This is a 38-year-old morbidly obese female. She is resting in bed and appears to be comfortable and in no acute distress. HEENT: Head is atraumatic, normocephalic. Pupils equal, round. Sclerae is anicteric. NECK: Supple. No JVD. No lymphadenopathy. No thyromegaly. LUNGS: Clear to auscultation. No wheezes or rhonchi. No intercostal retractions. HEART: Regular rate and rhythm. No murmur. ABDOMEN: Soft. Bowel sounds are present. No masses. No tenderness. EXTREMITIES: No pedal edema. No calf tenderness. NEUROLOGICAL: Patient is awake, alert and oriented x3. Cranial nerves 2 through 12 are grossly intact. - Labs CBC & Chem 7: 01/18/19 06:35 01/18/19 06:35 Assessment and Plan Plan: 1. Acute diverticulitis failed on outpatient management complicated with micro- perforation. Continue Atarax this, Zosyn. Patient currently on clear liquid diet. 2. Leukocytosis. 3. Fever. 4. Hypokalemia with electrolyte imbalance. 5. Hypertension. Increase lisinopril to 30 mg daily. 6. Hyperlipidemia. 7. Obesity. 8. Marijuana dependence. Discharge plan: Return home Impression and plan of care have been directed as dictated by the signing physician. Nola Connor nurse practitioner acting as scribe for signing ph ysician.
[2019-01-19] MEDS: ANIDULAFUNGIN 100 MG in SODIUM CHLORIDE 0.9% 100 ML IVPB SCH (17:22)
[2019-01-19] MEDS: ATORVASTATIN 20 MG TAB PO SCH (20:15)
--- NOTE | 2019-01-20 00:01 | P.PN ---
Subjective Progress Note Date: 01/19/19 01/19/2019 the patient's bone scan failed to reveal evidence of osteomyelitis at the site of the ulceration of the toe reveals evidence of some abnormality and MRI has been requested per the primary service. Current antibiotic therapy appears to be adequate for a slightly pathogen. If there is no osteomyelitis within be able to complete a course of oral antibiotic therapy for the cellulitis to the foot. We again discussed the significant importance of elevation of her limbs while she is at rest, wraps and edema control if she wants to control this difficulty. 01/19/2019 the patient is feeling slowly better today. The severe abdominal pain is improved. She is having full liquids without nausea or emesis. She is passing flatus. There has been no stool out the vaginal vault. She's passed no urine through the rectum. Objective - Vital Signs Vital signs: Vital Signs Temp 98.7 F 01/19/19 18:52 Pulse 72 01/19/19 18:52 Resp 18 01/19/19 18:52 BP 138/90 01/19/19 18:52 Pulse Ox 98 01/19/19 18:52 Intake & Output 01/19/19 01/19/19 01/20/19 06:59 18:59 06:59 Intake Total 1310 908 Balance 1310 908 Intake: Intake, IV Titration 950 Amount Sodium Chloride 0.9% 1, 950 000 ml @ 100 mls/hr IV . Q10H [facility] Rx#:[id number] Oral 360 908 Other: Voiding Method Toilet Toilet Toilet # Voids 1 3 - Exam HEENT: Anicteric conjunctiva are pink and moist nasal mucosa grossly intact without significant lesions, there is no thrush. Neck: The neck is supple without significant lymphadenopathy or thyromegaly. Lungs: Good bilateral air entry without significant crackles or wheezing. There is no significant bronchial sounds. There is no egophony or dullness. Heart: Regular rate and rhythm with an audible S1-S2, no S3 no S4. There is no significant murmur click or rub, PMI was nondisplaced. Abdomen:obese,Positive bowel sounds soft improved tenderness to the left lower quadrant without rebound not rigid, not palapable organomegaly Extremities: The upper extremities have excellent pulses they are symmetric, no significant petechiae or telangiectasia. No splinter hemorrhages were noted. The lower extremities are free from significant edema. The peripheral pulses were 2+ and symmetric. Neuro: Awake alert oriented to person place and time. There are no acute new gross focal sensory motor deficits. - Labs CBC & Chem 7: 01/18/19 06:35 01/18/19 06:35 Labs: Laboratory Results WBC 6.8 k/uL (3.8-10.6) 01/18/19 06:35 RBC 4.01 m/uL (3.80-5.40) 01/18/19 06:35 Hgb 12.2 gm/dL (11.4-16.0) 01/18/19 06:35 Hct 37.6 % (34.0-46.0) 01/18/19 06:35 MCV 93.7 fL (80.0-100.0) 01/18/19 06:35 MCH 30.4 pg (25.0-35.0) 01/18/19 06:35 MCHC 32.5 g/dL (31.0-37.0) 01/18/19 06:35 RDW 12.4 % (11.5-15.5) 01/18/19 06:35 Plt Count 237 k/uL (150-450) 01/18/19 06:35 Neutrophils % 66 % 01/18/19 06:35 Lymphocytes % 21 % 01/18/19 06:35 Monocytes % 7 % 01/18/19 06:35 Eosinophils % 4 % 01/18/19 06:35 Basophils % 1 % 01/18/19 06:35 Neutrophils # 4.5 k/uL (1.3-7.7) 01/18/19 06:35 Lymphocytes # 1.4 k/uL (1.0-4.8) 01/18/19 06:35 Monocytes # 0.5 k/uL (0-1.0) 01/18/19 06:35 Eosinophils # 0.3 k/uL (0-0.7) 01/18/19 06:35 Basophils # 0.1 k/uL (0-0.2) 01/18/19 06:35 Sodium 141 mmol/L (137-145) 01/18/19 06:35 Potassium 3.4 mmol/L (3.5-5.1) L 01/18/19 06:35 Chloride 108 mmol/L (98-107) H 01/18/19 06:35 Carbon Dioxide 24 mmol/L (22-30) 01/18/19 06:35 Anion Gap 9 mmol/L 01/18/19 06:35 BUN 8 mg/dL (7-17) 01/18/19 06:35 Creatinine 0.73 mg/dL (0.52-1.04) 01/18/19 06:35 Est GFR (CKD-EPI)AfAm >90 (>60 ml/min/1.73 sqM) 01/18/19 06:35 Est GFR (CKD-EPI)NonAf >90 (>60 ml/min/1.73 sqM) 01/18/19 06:35 Glucose 140 mg/dL (74-99) H 01/18/19 06:35 Calcium 8.6 mg/dL (8.4-10.2) 01/18/19 06:35 Total Bilirubin 0.5 mg/dL (0.2-1.3) 01/17/19 13:45 AST 12 U/L (14-36) L 01/17/19 13:45 ALT 23 U/L (9-52) 01/17/19 13:45 Alkaline Phosphatase 57 U/L (38-126) 01/17/19 13:45 Total Protein 6.7 g/dL (6.3-8.2) 01/17/19 13:45 Albumin 3.9 g/dL (3.5-5.0) 01/17/19 13:45 Lipase 52 U/L (23-300) 01/17/19 13:45 Urine Color Yellow 01/17/19 13:52 Urine Appearance Cloudy (Clear) H 01/17/19 13:52 Urine pH 5.5 (5.0-8.0) 01/17/19 13:52 Ur Specific [place] 1.023 (1.001-1.035) 01/17/19 13:52 Urine Protein Trace (Negative) H 01/17/19 13:52 Urine Glucose (UA) Negative (Negative) 01/17/19 13:52 Urine Ketones 1+ (Negative) H 01/17/19 13:52 Urine Blood Small (Negative) H 01/17/19 13:52 Urine Nitrite Negative (Negative) 01/17/19 13:52 Urine Bilirubin Negative (Negative) 01/17/19 13:52 Urine Urobilinogen 2.0 mg/dL (<2.0) 01/17/19 13:52 Ur Leukocyte Esterase Moderate (Negative) H 01/17/19 13:52 Urine RBC 2 /hpf (0-5) 01/17/19 13:52 Urine WBC 4 /hpf (0-5) 01/17/19 13:52 Ur Squamous Epith Cells 13 /hpf (0-4) H 01/17/19 13:52 Urine Bacteria Rare /hpf (None) H 01/17/19 13:52 Urine Mucus Moderate /hpf (None) H 01/17/19 13:52 Urine HCG, Qual Not Detected (Not Detectd) 01/17/19 13:52 Assessment and Plan (1) Diverticulitis Current Visit: Yes Status: Acute Code(s): K57.92 - DVTRCLI OF INTEST, PART UNSP, W/O PERF OR ABSCESS W/O BLEED SNOMED Code(s): 325883670 (2) Diverticulitis of colon with perforation Narrative/Plan: 38-year-old male who presents to hospital with increasing amounts of abdominal pain after her recent emergency room visit. Despite oral antibiotic therapy with Levaquin and Flagyl she continued to have increasing amounts of abdominal pain. She then presents to the emergency center and computed tomography scan reveals evidence of the perforation of the diverticulum. She can squeeze nubbin seen by the surgeon and consult was requested. Intravenous antibiotic therapy with Zosyn has been initiated as well as Eraxis to cover for underlying fungal pathogens. The patient is being closely monitored by surgery and there is a potential that she may need to be taken to the operating room. Hopefully with antibiotics and bowel rest she will seal the perforation and potentially could have surgery at a later time. 01/19/2019 patient fortunately is feeling somewhat better at this point in time and seems to be responding to antibiotic therapy quite well. Neurosurgery is following and she is being monitored closely. The plan at this point in time would be a few weeks of outpatient intravenous antibiotic therapy with Invanz to complete the treatment of the significant abscess related to her diverticular leak. She fortunately is showing some improvement this point in time. She is aware she will person she within need more urgent surgical intervention otherwise antibiotic therapy, followed by endoscopy and then resection is indicated. Pain control is adequate at this time. We'll need adequate protein intake and vitamin as tolerated. Current Visit: Yes Status: Acute Code(s): K57.20 - DVTRCLI OF LG INT W PERFORATION AND ABSCESS W/O BLEEDING SNOMED Code(s): 31865099 (3) Fever Current Visit: Yes Status: Acute Code(s): R50.9 - FEVER, UNSPECIFIED SNOMED Code(s): 998447154 (4) Leukocytosis (leucocytosis) Current Visit: Yes Status: Acute Code(s): D72.829 - ELEVATED WHITE BLOOD CELL COUNT, UNSPECIFIED SNOMED Code(s): 975853333
[2019-01-20] MEDS: PIPERACILLIN-TAZOBACTAM 3.375 GM in SODIUM CHLORIDE 0.9% 100 ML IVPB SCH ×2 (00:29→09:17)
[2019-01-20] MEDS: SODIUM CHLORIDE 0.9% 1,000 ML IV SCH (05:09)
[2019-01-20] MEDS ORDERED: LISINOPRIL 10 MG TAB PO SCH (09:00)
[2019-01-20] MEDS: HEPARIN SODIUM,PORCINE 5,000 UNIT/ML 1 ML VIAL SQ SCH (09:07)
[2019-01-20] MEDS ORDERED: ERTAPENEM 1 GM in SODIUM CHLORIDE 0.9% 50 ML IVPB SCH (09:15)
--- NOTE | 2019-01-20 11:21 | P.PN ---
<Doreen Ovalle - Last Filed: 01/20/19 11:16> Subjective Progress Note Date: 01/20/19 CHIEF COMPLAINT: complicated diverticulitis HISTORY OF PRESENT ILLNESS: Patient examined this morning at the bedside. She reports pain is tolerable. Denies nausea or vomiting. Tolerating low fiber diet. Afebrile. PHYSICAL EXAM: VITAL SIGNS: Reviewed. GENERAL: Well-developed in no acute distress. HEENT: No sclera icterus. Extraocular movements grossly intact. Moist buccal mucosa. Head is atraumatic, normocephalic. ABDOMEN: Soft. Nondistended. Minimal tenderness to left lower quadrant. NEUROLOGIC: Alert and oriented. Cranial nerves II through XII grossly intact. ASSESSMENT: 1. Acute diverticulitis with microperforation, failed outpatient therapy PLAN: 1. Continue low fiber diet 2. Patient to receive Midline IV catheter today. Plan is Invanz 1gram IV daily 3. Anticipate discharge this afternoon after patient is evaluated by Dr. Foster Nurse practitioner note has been reviewed by physician. Signing provider agrees with the documented findings, assessment, and plan of care. Objective - Vital Signs Vital signs: Vital Signs Temp 98 F 01/20/19 07:22 Pulse 72 01/20/19 07:22 Resp 18 01/20/19 07:22 BP 145/95 01/20/19 07:22 Pulse Ox 97 01/20/19 01:49 Intake & Output 01/19/19 01/20/19 01/20/19 18:59 06:59 18:59 Intake Total 908 260 Balance 908 260 Intake: Oral 908 260 Other: Voiding Method Toilet Toilet # Voids 3 - Labs CBC & Chem 7: 01/18/19 06:35 01/18/19 06:35 <Herve Foster - Last Filed: 01/20/19 17:26> Subjective Agree see discharge summary Objective - Vital Signs Vital signs: Vital Signs Temp 98.1 F 01/20/19 15:00 Pulse 78 01/20/19 15:00 Resp 16 01/20/19 15:00 BP 154/94 01/20/19 15:00 Pulse Ox 95 01/20/19 15:00 Intake & Output 01/19/19 01/20/19 01/20/19 18:59 06:59 18:59 Intake Total 908 510 Balance 908 510 Intake: Intake, IV Titration 100 Amount Ertapenem 1 gm In Sodium 100 Chloride 0.9% 50 ml @ 100 mls/hr IVPB DAILY COUNTS INCLUDE 234 BEDS AT [facility] Rx #:[id number] Oral 908 410 Other: Voiding Method Toilet Toilet Toilet # Voids 3 - Labs CBC & Chem 7: 01/18/19 06:35 01/18/19 06:35 Assessment and Plan (1) Diverticulitis Current Visit: Yes Status: Acute Code(s): K57.92 - DVTRCLI OF INTEST, PART UNSP, W/O PERF OR ABSCESS W/O BLEED SNOMED Code(s): 118366131
--- NOTE | 2019-01-20 14:54 | P.PN ---
Subjective Progress Note Date: 01/20/19 This is 38 years old female who failed on conservative management with oral antibiotics outpatient for diverticulitis and presented today with worsening abdominal pain. Patient was found to have free air with microperforation and was started on IV antibiotics IV fluid and kept nothing by mouth. Patient stated that she has improved since yesterday currently denying chest pain shortness breath nausea vomiting dizziness lightheadedness or dysuria. Patient stated that she smokes weed denied alcohol or drug abuse stated that she takes her blood pressure and high cholesterol medication at home and has been complaint with her medication 01/19: Patient is complaining of continued abdominal pain that is shooting type in the lower left quadrant. She is currently tolerating clear liquid diet which may be advanced per general surgery. The patient has been seen by Dr. Coleman and placed on Eraxis and Zosyn. Patient has been afebrile, heart rate 77, blood pressure 144/97, pulse ox 96% on room air. Lisinopril will be increased. 01/20: Patient remains afebrile, heart rate 72, blood pressure 145/95, pulse ox 97% on room air. The patient states she has had a bowel movement. She is urinating without difficulty. She continues to have some mild tenderness to the left lower quadrant. She states her appetite is good. We will increase lisinopril for home. Dr. Coleman is planning for few weeks of Invanz as an outpatient for treatment of the significant abscess related to her diverticular leak. Anticipate probable discharge home later today pending surgical evaluation Objective - Vital Signs Vital signs: Vital Signs Temp 98 F 01/20/19 07:22 Pulse 72 01/20/19 07:22 Resp 17 01/20/19 01:49 BP 145/95 01/20/19 07:22 Pulse Ox 97 01/20/19 01:49 Intake & Output 01/19/19 01/20/19 01/20/19 18:59 06:59 18:59 Intake Total 908 260 Balance 908 260 Intake: Oral 908 260 Other: Voiding Method Toilet Toilet # Voids 3 - Exam Review Of Systems: Constitutional: No fever, no chills, no night sweats. No weight change. No weakness, fatigue or lethargy. EENT: No headache. No blurred vision or double vision, no loss of vision. No loss of Hearing, no ringing in the ears, no dizziness. No nasal drainage or congestion. Lungs: No shortness of breath, cough, no sputum production. No wheezing. Cardiovascular: No chest pain, no lower extremity edema. No palpitations. No paroxysmal nocturnal dyspnea. No orthopnea. No lightheadedness or dizziness. No syncopal episodes. Abdominal: Reports abdominal pain. No nausea, vomiting. No diarrhea. No constipation. No loss of appetite. Genitourinary: No dysuria, increased frequency, urgency. No urinary retention. Musculoskeletal: No myalgias. No muscle weakness, no gait dysfunction, no frequent falls. No back pain. No neck pain. Integumentary: No wounds, no lesions. No rash or pruritus. No unusual bruising. No change in hair or nails. Neurologic: No aphasia. No facial droop. No change in mentation. No head injury. No headache. No paralysis. Psychiatric: No depression. No anxiety. No mood swings. Endocrine: No abnormal blood sugars. No weight change. No excessive sweating or thirst. Gen: This is a 38-year-old morbidly obese female. She is resting in bed and appears to be comfortable and in no acute distress. HEENT: Head is atraumatic, normocephalic. Pupils equal, round. Sclerae is anicteric. NECK: Supple. No JVD. No lymphadenopathy. No thyromegaly. LUNGS: Clear to auscultation. No wheezes or rhonchi. No intercostal retractions. HEART: Regular rate and rhythm. No murmur. ABDOMEN: Soft. Bowel sounds are present. No masses. No tenderness. EXTREMITIES: No pedal edema. No calf tenderness. NEUROLOGICAL: Patient is awake, alert and oriented x3. Cranial nerves 2 through 12 are grossly intact. - Labs CBC & Chem 7: 01/18/19 06:35 01/18/19 06:35 Assessment and Plan Plan: 1. Acute diverticulitis failed on outpatient management complicated with micro-perforation. Continue Atarax this, Zosyn. Patient currently on clear liquid diet. 2. Leukocytosis. 3. Fever. 4. Hypokalemia with electrolyte imbalance. 5. Hypertension. Increase lisinopril to 40 mg daily. 6. Hyperlipidemia. 7. Obesity. 8. Marijuana dependence. Discharge plan: Return home Impression and plan of care have been directed as dictated by the signing physician. Nola Connor nurse practitioner acting as scribe for signing physician.
[2019-01-20] MEDS ORDERED: LISINOPRIL 10 MG TAB PO STA (14:56)
[2019-01-20 15:33] VITALS: BP 154/94; PULSE 78; RESP 16; TEMP 98.1
--- NOTE | 2019-01-20 17:25 | P.DS ---
Providers Date of admission: 01/17/19 15:00 Expected date of discharge: 01/20/19 Attending physician: Herve Foster Consults: 01/17/19 15:01 Consult Physician Routine Consulting Provider: Williams Dent Consult Reason/Comments: bowel perforation, medical management Do you want consulting provider notified?: Yes 01/17/19 17:41 Consult Physician Routine Consulting Provider: Williams Coleman Consult Reason/Comments: Complicated diverticulitis Do you want consulting provider notified?: Yes Primary care physician: Elizabeth Mata - Discharge Diagnosis(es) (1) Diverticulitis 38-year-old female admitted for comp. Diverticulitis. The patient is having increasing symptoms despite oral antibiotics at home. Repeat CAT scan showed small foci of pneumoperitoneum. She has done well with nonoperative treatment. White blood cell count is normal. Tolerating diet. No fevers. Pain significantly improved. She would like to go home. Infectious disease saw this patient during the hospital stay as well as the hospitalist service. She is going home with a midline in place with plans for home antibiotics. Follow-up in the office 1-2 weeks. Current Visit: Yes Status: Acute Patient Condition at Discharge: Fair Plan - Discharge Summary New Discharge Prescriptions: New Ertapenem [INVanz] 1 gm IVPB Q24H #21 bag Lisinopril [Zestril] 40 mg PO DAILY #30 tab Continue Atorvastatin [Lipitor] 20 mg PO HS Discontinued Lisinopril 20 mg PO DAILY #30 tab Ciprofloxacin HCl [Cipro] 500 mg PO Q12HR #20 tablet metroNIDAZOLE [Flagyl] 500 mg PO TID #30 tab Discharge Medication List Atorvastatin [Lipitor] 20 mg PO HS 01/17/19 [History] Ertapenem [INVanz] 1 gm IVPB Q24H #21 bag 01/20/19 [Rx] Lisinopril [Zestril] 40 mg PO DAILY #30 tab 01/20/19 [Rx] Follow up Appointment(s)/Referral(s): Vinay[facility] Marcelo, [facility] [REFERRING] - 1 Week Williams Coleman MD [STAFF PHYSICIAN] - 3 Weeks [facility], [NON-STAFF] - As Needed [facility], [REFERRING] - As Needed Ambulatory/Diagnostic Orders: Complete Blood Count w/diff [LAB.AMB] Location: None Selected Comprehensive Metabolic Panel [LAB.AMB] Location: None Selected Discharge Disposition: HOME WITH HOME HEALTH SERVICES
--- NOTE | 2019-01-21 01:02 | P.PN ---
Subjective Progress Note Date: 01/20/19 01/19/2019 the patient's bone scan failed to reveal evidence of osteomyelitis at the site of the ulceration of the toe reveals evidence of some abnormality and MRI has been requested per the primary service. Current antibiotic therapy appears to be adequate for a slightly pathogen. If there is no osteomyelitis within be able to complete a course of oral antibiotic therapy for the cellulitis to the foot. We again discussed the significant importance of elevation of her limbs while she is at rest, wraps and edema control if she wants to control this difficulty. 01/19/2019 the patient is feeling slowly better today. The severe abdominal pain is improved. She is having full liquids without nausea or emesis. She is passing flatus. There has been no stool out the vaginal vault. She's passed no urine through the rectum. 01/20/2019 the patient has had further improvement of her status. Her pain is now much improved. She's having no fevers or chills. Leukocytosis improved. She is eating a full liquid diet with no pain. No nausea or emesis. Tolerated antibiotic therapy well. Objective - Vital Signs Vital signs: Vital Signs Temp 98.1 F 01/20/19 15:00 Pulse 78 01/20/19 15:00 Resp 16 01/20/19 15:00 BP 154/94 01/20/19 15:00 Pulse Ox 95 01/20/19 15:00 Intake & Output 01/20/19 01/20/19 01/21/19 06:59 18:59 06:59 Intake Total 510 Balance 510 Intake: Intake, IV Titration 100 Amount Ertapenem 1 gm In Sodium 100 Chloride 0.9% 50 ml @ 100 mls/hr IVPB DAILY [facility] Rx #:[id number] Oral 410 Other: Voiding Method Toilet Toilet - Exam HEENT: Anicteric conjunctiva are pink and moist nasal mucosa grossly intact without significant lesions, there is no thrush. Neck: The neck is supple without significant lymphadenopathy or thyromegaly. Lungs: Good bilateral air entry without significant crackles or wheezing. There is no significant bronchial sounds. There is no egophony or dullness. Heart: Regular rate and rhythm with an audible S1-S2, no S3 no S4. There is no significant murmur click or rub, PMI was nondisplaced. Abdomen:obese,Positive bowel sounds soft, much improved tenderness to the left lower quadrant without rebound not rigid, not palapable organomegaly Extremities: The upper extremities have excellent pulses they are symmetric, no significant petechiae or telangiectasia. No splinter hemorrhages were noted. The lower extremities are free from significant edema. The peripheral pulses were 2+ and symmetric. Neuro: Awake alert oriented to person place and time. There are no acute new gross focal sensory motor deficits. - Labs CBC & Chem 7: 01/18/19 06:35 01/18/19 06:35 Labs: Laboratory Results WBC 6.8 k/uL (3.8-10.6) 01/18/19 06:35 RBC 4.01 m/uL (3.80-5.40) 01/18/19 06:35 Hgb 12.2 gm/dL (11.4-16.0) 01/18/19 06:35 Hct 37.6 % (34.0-46.0) 01/18/19 06:35 MCV 93.7 fL (80.0-100.0) 01/18/19 06:35 MCH 30.4 pg (25.0-35.0) 01/18/19 06:35 MCHC 32.5 g/dL (31.0-37.0) 01/18/19 06:35 RDW 12.4 % (11.5-15.5) 01/18/19 06:35 Plt Count 237 k/uL (150-450) 01/18/19 06:35 Neutrophils % 66 % 01/18/19 06:35 Lymphocytes % 21 % 01/18/19 06:35 Monocytes % 7 % 01/18/19 06:35 Eosinophils % 4 % 01/18/19 06:35 Basophils % 1 % 01/18/19 06:35 Neutrophils # 4.5 k/uL (1.3-7.7) 01/18/19 06:35 Lymphocytes # 1.4 k/uL (1.0-4.8) 01/18/19 06:35 Monocytes # 0.5 k/uL (0-1.0) 01/18/19 06:35 Eosinophils # 0.3 k/uL (0-0.7) 01/18/19 06:35 Basophils # 0.1 k/uL (0-0.2) 01/18/19 06:35 Sodium 141 mmol/L (137-145) 01/18/19 06:35 Potassium 3.4 mmol/L (3.5-5.1) L 01/18/19 06:35 Chloride 108 mmol/L (98-107) H 01/18/19 06:35 Carbon Dioxide 24 mmol/L (22-30) 01/18/19 06:35 Anion Gap 9 mmol/L 01/18/19 06:35 BUN 8 mg/dL (7-17) 01/18/19 06:35 Creatinine 0.73 mg/dL (0.52-1.04) 01/18/19 06:35 Est GFR (CKD-EPI)AfAm >90 (>60 ml/min/1.73 sqM) 01/18/19 06:35 Est GFR (CKD-EPI)NonAf >90 (>60 ml/min/1.73 sqM) 01/18/19 06:35 Glucose 140 mg/dL (74-99) H 01/18/19 06:35 Calcium 8.6 mg/dL (8.4-10.2) 01/18/19 06:35 Total Bilirubin 0.5 mg/dL (0.2-1.3) 01/17/19 13:45 AST 12 U/L (14-36) L 01/17/19 13:45 ALT 23 U/L (9-52) 01/17/19 13:45 Alkaline Phosphatase 57 U/L (38-126) 01/17/19 13:45 Total Protein 6.7 g/dL (6.3-8.2) 01/17/19 13:45 Albumin 3.9 g/dL (3.5-5.0) 01/17/19 13:45 Lipase 52 U/L (23-300) 01/17/19 13:45 Urine Color Yellow 01/17/19 13:52 Urine Appearance Cloudy (Clear) H 01/17/19 13:52 Urine pH 5.5 (5.0-8.0) 01/17/19 13:52 Ur Specific [place] 1.023 (1.001-1.035) 01/17/19 13:52 Urine Protein Trace (Negative) H 01/17/19 13:52 Urine Glucose (UA) Negative (Negative) 01/17/19 13:52 Urine Ketones 1+ (Negative) H 01/17/19 13:52 Urine Blood Small (Negative) H 01/17/19 13:52 Urine Nitrite Negative (Negative) 01/17/19 13:52 Urine Bilirubin Negative (Negative) 01/17/19 13:52 Urine Urobilinogen 2.0 mg/dL (<2.0) 01/17/19 13:52 Ur Leukocyte Esterase Moderate (Negative) H 01/17/19 13:52 Urine RBC 2 /hpf (0-5) 01/17/19 13:52 Urine WBC 4 /hpf (0-5) 01/17/19 13:52 Ur Squamous Epith Cells 13 /hpf (0-4) H 01/17/19 13:52 Urine Bacteria Rare /hpf (None) H 01/17/19 13:52 Urine Mucus Moderate /hpf (None) H 01/17/19 13:52 Urine HCG, Qual Not Detected (Not Detectd) 01/17/19 13:52 Assessment and Plan (1) Diverticulitis Status: Acute Code(s): K57.92 - DVTRCLI OF INTEST, PART UNSP, W/O PERF OR ABS CESS W/O BLEED SNOMED Code(s): 193448759 (2) Diverticulitis of colon with perforation Narrative/Plan: 38-year-old male who presents to hospital with increasing amounts of abdominal pain after her recent emergency room visit. Despite oral antibiotic therapy with Levaquin and Flagyl she continued to have increasing amounts of abdominal pain. She then presents to the emergency center and computed tomography scan reveals evidence of the perforation of the diverticulum. She can squeeze nubbin seen by the surgeon and consult was requested. Intravenous antibiotic therapy with Zosyn has been initiated as well as Eraxis to cover for underlying fungal pathogens. The patient is being closely monitored by surgery and there is a potential that she may need to be taken to the operating room. Hopefully with antibiotics and bowel rest she will seal the perforation and potentially could have surgery at a later time. 01/19/2019 patient fortunately is feeling somewhat better at this point in time and seems to be responding to antibiotic therapy quite well. Neurosurgery is following and she is being monitored closely. The plan at this point in time would be a few weeks of outpatient intravenous antibiotic therapy with Invanz to complete the treatment of the significant abscess related to her diverticular leak. She fortunately is showing some improvement this point in time. She is aware she will person she within need more urgent surgical intervention otherwise antibiotic therapy, followed by endoscopy and then resection is indicated. Pain control is adequate at this time. We'll need adequate protein intake and vitamin as tolerated. 01/20/2019 patient is feeling considerably better. Surgeon has related that she is ready for discharge to home. She will go on 21 days of Invanz in the outpatient setting. Follow-up in the office after 21 days. Weekly blood work is been requested. Follow up with her surgeon. Will need endoscopy in the future to help guide the surgical plan. We discussed importance of high protein intake at home and a multivitamin to help her healing. Status: Acute Code(s): K57.20 - DVTRCLI OF LG INT W PERFORATION AND ABSCESS W/O BLEEDING SNOMED Code(s): 19225431 (3) Fever Status: Acute Code(s): R50.9 - FEVER, UNSPECIFIED SNOMED Code(s): 328883328 (4) Leukocytosis (leucocytosis) Status: Acute Code(s): D72.829 - ELEVATED WHITE BLOOD CELL COUNT, UNSPECIFIED SNOMED Code(s): 362296420
[2019-01-21] MEDS ORDERED: LISINOPRIL 20 MG TAB PO SCH (09:00)
== END 2019-01-20 19:08 | disposition home health service (06) | DRG 392 ==
LOC: EC 12:52 → 4SSUR 15:00
PROVIDERS: ADMIT Surgery; ATTEND Surgery
PROC: 05HY33Z Insertion of Infusion Device into Upper Vein, Percutaneous Approach (ICD-10-PCS; principal; 2019-01-20 11:00)
DX: K57.20 Diverticulitis of large intestine with perforation and abscess without bleeding (principal); Z68.42 Body mass index [BMI] 45.0-49.9, adult; E66.9 Obesity, unspecified; Z71.3 Dietary counseling and surveillance; Z71.51 Drug abuse counseling and surveillance of drug abuser; E78.5 Hyperlipidemia, unspecified; E87.6 Hypokalemia; F12.20 Cannabis dependence, uncomplicated; I10 Essential (primary) hypertension; K59.00 Constipation, unspecified; K66.8 Other specified disorders of peritoneum; Z79.899 Other long term (current) drug therapy; Z87.891 Personal history of nicotine dependence; Z88.5 Allergy status to narcotic agent; Z82.49 Family history of ischemic heart disease and other diseases of the circulatory system; Z79.2 Long term (current) use of antibiotics
CPT/HCPCS: 36410; 36415; 74177; 76937; 80048; 80053; 81001; 81025; 83690; 85025; 96361; 96374; 99285

== ENCOUNTER 2019-02-04 01:15 | Emergency (ER) | payer OTHER ==
[2019-02-04 01:26] VITALS: RESP 18; TEMP 98.3
[2019-02-04] MEDS ORDERED: SODIUM CHLORIDE 0.9% 1,000 ML IV STA (01:46)
[2019-02-04] MEDS ORDERED: FAMOTIDINE 20 MG/2 ML VIAL IV STA (01:47)
[2019-02-04 02:27] LABS: Basophils # (A) 0.1 k/uL (0-0.2); Basophils % (A) 1 %; Eosinophils # (A) 0.2 k/uL (0-0.7); Eosinophils % (A) 2 %; HCT 38.8 % (34.0-46.0); HGB 12.9 gm/dL (11.4-16.0); Lymphocytes # (A) 2.9 k/uL (1.0-4.8); Lymphocytes % (A) 26 %; MCH 30.5 pg (25.0-35.0); MCHC 33.4 g/dL (31.0-37.0); MCV 91.3 fL (80.0-100.0); Monocytes % (A) 9 %; Neutrophils % (A) 62 %; Platelet Count 245 k/uL (150-450); RBC 4.24 m/uL (3.80-5.40); WBC 11.2 k/uL (3.8-10.6)
[2019-02-04 02:28] LABS: Appearance,Urine Clear (Clear); Bacteria,Urine Rare /hpf; Bilirubin,Urine Negative (Negative); Blood,Urine Small (Negative); Color,Urine Colorless; Glucose,Urine (UA) Negative (Negative); Ketones,Urine Negative (Negative); Leukocyte Esterase,Urine Large (Negative); Nitrite,Urine Negative (Negative); Protein,Urine Negative (Negative); RBC,Urine 2 /hpf (0-5); Specific Gravity,Urine 1.003 (1.001-1.035); Squamous Epithelial Cell,Urine 2 /hpf (0-4); Urobilinogen,Urine <2.0 mg/dL (<2.0); WBC,Urine 7 /hpf (0-5)
[2019-02-04 02:33] LABS: ALT 23 U/L (9-52); AST 21 U/L (14-36); African American GFR (CKD) >90 (>60 ml/min/1.73 sqM); Albumin 4.2 g/dL (3.5-5.0); Alkaline Phosphatase 53 U/L (38-126); Amylase 56 U/L (30-110); Anion Gap 10 mmol/L; Blood Urea Nitrogen 11 mg/dL (7-17); Calcium 9.9 mg/dL (8.4-10.2); Carbon Dioxide 23 mmol/L (22-30); Chloride 106 mmol/L (98-107); Glucose 121 mg/dL (74-99); Non-African American GFR(CKD) >90 (>60 ml/min/1.73 sqM); Sodium 139 mmol/L (137-145); Total Bilirubin 0.7 mg/dL (0.2-1.3); Total Protein 7.2 g/dL (6.3-8.2)
[2019-02-04] MEDS ORDERED: KETOROLAC 30 MG/ML 1 ML VIAL IVP STA (02:47)
--- NOTE | 2019-02-04 02:48 | ED ---
General Adult HPI - General Chief complaint: Skin/Abscess/Foreign Body Stated complaint: Allergic Reaction Time Seen by Provider: 02/04/19 01:27 Source: patient Mode of arrival: ambulatory Limitations: no limitations - History of Present Illness Initial comments: 39-year-old female patient presents to the emergency department today for evaluation of rash and lower abdominal pain. Patient states she was seen and admitted here on 01/17/2019 for perforated diverticulum. Patient states that she was receiving outpatient ertapenem through PICC line. States that she did develop a rash from the antibiotic 3 days ago. Patient states that she stop the antibiotic as directed by her physician. States that she developed another rash today. Patient states she has also been having intermittent sharp pains to the lower abdomen over the last 24 hours. She denies any diarrhea, hematochezia, or melena. She denies any nausea or vomiting with this. Patient states she also developed indigestion and was concerned so she presented here for further evaluation. Patient denies taking any Benadryl for symptoms today. Denies taking any pain medication currently. Patient denies any recent fever, chills, shortness breath, chest pain, back pain, numbness, tingling, dizziness, weakness, hematuria, dysuria, urinary urgency, urinary frequency, headache, visu al changes, or any other complaints. - Related Data Home Medications Medication Instructions Recorded Confirmed Atorvastatin [Lipitor] 20 mg PO HS 01/17/19 01/17/19 Previous Rx's Medication Instructions Recorded Ertapenem [INVanz] 1 gm IVPB Q24H #21 bag 01/20/19 Lisinopril [Zestril] 40 mg PO DAILY #30 tab 01/20/19 Famotidine [Pepcid] 20 mg PO DAILY #5 tablet 02/04/19 Allergies Allergy/AdvReac Type Severity Reaction Status Date / Time codeine Allergy Itching Verified 02/04/19 01:25 ertapenem Allergy Rash/Hives Verified 02/04/19 01:25 Review of Systems ROS Statement: Those systems with pertinent positive or pertinent negative responses have been documented in the HPI. ROS Other: All systems not noted in ROS Statement are negative. Past Medical History Past Medical History: Hypertension Additional Past Medical History / Comment(s): diverticulitis perforated bowel no surgery. History of Any Multi-Drug Resistant Organisms: None Reported Past Surgical History: Section, Hernia Repair Past Psychological History: No Psychological Hx Reported Smoking Status: Current every day smoker Past Alcohol Use History: Occasional Past Drug Use History: None Reported - Past Family History Mother Family Medical History: AFIB General Exam Limitations: no limitations General appearance: alert, in no apparent distress, other (Physical well- developed, well-nourished adult female patient in no acute distress. Vital signs upon presentation are temperature 98.2F, pulse 88, respirations 18, blood pressure 146/90, pulse ox 96% on room air.) Eye exam: Present: normal appearance, PERRL, EOMI. Absent: scleral icterus, conjunctival injection, periorbital swelling ENT exam: Present: normal exam, normal oropharynx, mucous membranes moist Respiratory exam: Present: normal lung sounds bilaterally. Absent: respiratory distress, wheezes, rales, rhonchi, stridor Cardiovascular Exam: Present: regular rate, normal rhythm, normal heart sounds. Absent: systolic murmur, diastolic murmur, rubs, gallop, clicks GI/Abdominal exam: Present: soft, tenderness (Left lower quadrant abdominal tenderness), normal bowel sounds. Absent: distended, guarding, rebound, rigid Neurological exam: Present: alert, oriented X3, CN II-XII intact Psychiatric exam: Present: normal affect, normal mood Skin exam: Present: warm, dry, intact, normal color. Absent: rash Course Vital Signs 02/04/19 01:19 Temperature 98.3 F Pulse Rate 88 Respiratory 18 Rate Blood Pressure 146/90 O2 Sat by Pulse 96 Oximetry Medical Decision Making - Medical Decision Making 39-year-old female patient presents to the emergency department today for evaluation of left lower quadrant abdominal pain and rash to her chest and upper arms. Physical examination did reveal an urticarial type rash over the chest and arms. Labs reviewed and did reveal white blood cell count of 11.2. Vital signs are satisfactory with no fever. I did discuss findings and results with the patient. Since she is afebrile and experiencing minimal pain with known diverticulitis and infection we decided against repeating the CT scan of the abdomen using shared decision making. Patient preferred waiting to see Dr. Tuan goel tomorrow and to monitor her symptoms. We did discuss return parameters and great detail. She verbalizes understanding and agrees this plan - Lab Data Result diagrams: 02/04/19 02:00 02/04/19 02:00 Lab Results 02/04/19 02/04/19 02/04/19 Range/Units 02:00 02:00 02:00 WBC 11.2 H (3.8-10.6) k/uL RBC 4.24 (3.80-5.40) m/uL Hgb 12.9 (11.4-16.0) gm/dL Hct 38.8 (34.0-46.0) % MCV 91.3 (80.0-100.0) fL MCH 30.5 (25.0-35.0) pg MCHC 33.4 (31.0-37.0) g/dL RDW 13.0 (11.5-15.5) % Plt Count 245 (150-450) k/uL Neutrophils % 62 % Lymphocytes % 26 % Monocytes % 9 % Eosinophils % 2 % Basophils % 1 % Neutrophils # 7.0 (1.3-7.7) k/uL Lymphocytes # 2.9 (1.0-4.8) k/uL Monocytes # 1.0 (0-1.0) k/uL Eosinophils # 0.2 (0-0.7) k/uL Basophils # 0.1 (0-0.2) k/uL Sodium 139 (137-145) mmol/L Potassium 4.0 (3.5-5.1) mmol/L Chloride 106 (98-107) mmol/L Carbon Dioxide 23 (22-30) mmol/L Anion Gap 10 mmol/L BUN 11 (7-17) mg/dL Creatinine 0.75 (0.52-1.04) mg/dL Est GFR (CKD-EPI)AfAm >90 (>60 ml/min/1.73 sqM) Est GFR (CKD-EPI)NonAf >90 (>60 ml/min/1.73 sqM) Glucose 121 H (74-99) mg/dL Plasma Lactic Acid Jack 1.1 (0.7-2.0) mmol/L Calcium 9.9 (8.4-10.2) mg/dL Total Bilirubin 0.7 (0.2-1.3) mg/dL AST 21 (14-36) U/L ALT 23 (9-52) U/L Alkaline Phosphatase 53 (38-126) U/L Total Protein 7.2 (6.3-8.2) g/dL Albumin 4.2 (3.5-5.0) g/dL Amylase 56 (30-110) U/L Lipase 87 (23-300) U/L Urine Color Urine Appearance (Clear) Urine pH (5.0-8.0) Ur Specific [place] (1.001-1.035) Urine Protein (Negative) Urine Glucose (UA) (Negative) Urine Ketones (Negative) Urine Blood (Negative) Urine Nitrite (Negative) Urine Bilirubin (Negative) Urine Urobilinogen (<2.0) mg/dL Ur Leukocyte Esterase (Negative) Urine RBC (0-5) /hpf Urine WBC (0-5) /hpf Ur Squamous Epith Cells (0-4) /hpf Urine Bacteria (None) /hpf 02/04/19 Range/Units 02:00 WBC (3.8-10.6) k/uL RBC (3.80-5.40) m/uL Hgb (11.4-16.0) gm/dL Hct (34.0-46.0) % MCV (80.0-100.0) fL MCH (25.0-35.0) pg MCHC (31.0-37.0) g/dL RDW (11.5-15.5) % Plt Count (150-450) k/uL Neutrophils % % Lymphocytes % % Monocytes % % Eosinophils % % Basophils % % Neutrophils # (1.3-7.7) k/uL Lymphocytes # (1.0-4.8) k/uL Monocytes # (0-1.0) k/uL Eosinophils # (0-0.7) k/uL Basophils # (0-0.2) k/uL Sodium (137-145) mmol/L Potassium (3.5-5.1) mmol/L Chloride (98-107) mmol/L Carbon Dioxide (22-30) mmol/L Anion Gap mmol/L BUN (7-17) mg/dL Creatinine (0.52-1.04) mg/dL Est GFR (CKD-EPI)AfAm (>60 ml/min/1.73 sqM) Est GFR (CKD-EPI)NonAf (>60 ml/min/1.73 sqM) Glucose (74-99) mg/dL Plasma Lactic Acid Jack (0.7-2.0) mmol/L Calcium (8.4-10.2) mg/dL Total Bilirubin (0.2-1.3) mg/dL AST (14-36) U/L ALT (9-52) U/L Alkaline Phosphatase (38-126) U/L Total Protein (6.3-8.2) g/dL Albumin (3.5-5.0) g/dL Amylase (30-110) U/L Lipase (23-300) U/L Urine Color Colorless Urine Appearance Clear (Clear) Urine pH 6.0 (5.0-8.0) Ur Specific [place] 1.003 (1.001-1.035) Urine Protein Negative (Negative) Urine Glucose (UA) Negative (Negative) Urine Ketones Negative (Negative) Urine Blood Small H (Negative) Urine Nitrite Negative (Negative) Urine Bilirubin Negative (Negative) Urine Urobilinogen <2.0 (<2.0) mg/dL Ur Leukocyte Esterase Large H (Negative) Urine RBC 2 (0-5) /hpf Urine WBC 7 H (0-5) /hpf Ur Squamous Epith Cells 2 (0-4) /hpf Urine Bacteria Rare H (None) /hpf Disposition Clinical Impression: Allergic drug rash, Abdominal pain Disposition: HOME SELF-CARE Condition: Good Instructions (If sedation given, give patient instructions): Abdominal Pain (ED), General Allergic Reaction (ED) Additional Instructions: Take Benadryl as needed every 6 hours for symptom relief. Take Pepcid once daily. Follow-up with Dr. Coleman outpatient as planned. Follow up with your primary care physician for recheck as soon as possible. Return to the emergency department immediately for any new, worsening, or concerning symptoms. Prescriptions: Famotidine [Pepcid] 20 mg PO DAILY #5 tablet Is patient prescribed a controlled substance at d/c from ED?: No Referrals: Elizabeth Mata MD [Primary Care Provider] - 1-2 days Williams Coleman MD [STAFF PHYSICIAN] - 1-2 days Time of Disposition: 02:48
[2019-02-04 03:52] VITALS: BP 151/100; PULSE 68
== END 2019-02-04 03:50 | disposition home or self-care (01) ==
LOC: EC 01:15
DX: L72.0 Epidermal cyst (principal); R10.32 Left lower quadrant pain; F17.200 Nicotine dependence, unspecified, uncomplicated; Z87.19 Personal history of other diseases of the digestive system; Z79.899 Other long term (current) drug therapy; Z88.5 Allergy status to narcotic agent; Z88.1 Allergy status to other antibiotic agents
CPT/HCPCS: 36415; 80053; 82150; 83605; 83690; 85025; 81001; 99283; 96374; 96375; 96361; J1885

== ENCOUNTER → 2019-03-06 | Outpatient (CLI) | payer OTHER ==
--- NOTE | 2019-03-08 07:45 | CT ---
EXAMINATION TYPE: CT abdomen pelvis w con DATE OF EXAM: 03/06/2019 HISTORY: Follow up for diverticulitis. CT DLP: 1867.1mGycm Automated Exposure Control for Dose Reduction was Utilized. CONTRAST: CT scan of the abdomen and pelvis is performed with IV Contrast, patient injected with 100ml mL of Is ovue 300. COMPARISON: 01/17/2019 FINDINGS: LUNG BASES: No significant abnormality is appreciated. Small hiatal hernia is noted. LIVER/GB: The liver is very mildly diffusely hypoattenuated although does not yet meet care for hepat ic steatosis. No cholelithiasis nor intrahepatic biliary ductal dilatation. PANCREAS: No significant abnormality is seen. No ductal dilatation. SPLEEN: No splenomegaly. ADRENALS: No significant abnormality is seen. No nodularity or thickening. KIDNEYS: Kidneys enhance and excrete symmetrically without hydronephrosis. BOWEL: There is been interval resolution of the previously seen pericolonic inflammatory change surro unding the sigmoid colon on the prior examination of 01/17/2019. No dilated large or small bowel. No p ericolonic abscess is seen at this time. UTERUS/ADNEXA: The previously seen left adnexal follicle now appears to be an involuting possible hem orrhagic cyst. Bilateral tubal ligation clips are noted with the right tubal ligation clip position f luctuating slightly from the prior. LYMPH NODES: No greater than 1cm abdominal or pelvic lymph nodes are appreciated. OSSEOUS STRUCTURES: Bilateral slightly asymmetric sacroiliitis, left greater than right as there is s acroiliac joint sclerosis. OTHER: Ventral diastases recti is seen. IMPRESSION: 1. Interval resolution of the previously seen acute uncomplicated sigmoid diverticulitis. Previously seen pneumoperitoneum has also resolved. 2. Bilateral slightly asymmetric sacroiliitis they can be seen in inflammatory bowel diseases or arth ropathies. This is unlikely degenerative given the patient's age.
== END | disposition home or self-care (01) ==
LOC: RADCTMAIN 16:10
PROVIDERS: ATTEND Surgery
DX: M46.1 Sacroiliitis, not elsewhere classified (principal)
CPT/HCPCS: 74177; Q9967

== ENCOUNTER 2019-04-05 11:31 | Inpatient (IN) | payer OTHER ==
[2019-04-05 12:40] LABS: Basophils # (A) 0.1 k/uL (0-0.2); Basophils % (A) 1 %; Eosinophils # (A) 0.3 k/uL (0-0.7); Eosinophils % (A) 2 %; HCT 39.9 % (34.0-46.0); Lymphocytes # (A) 1.3 k/uL (1.0-4.8); Lymphocytes % (A) 7 %; MCH 31.6 pg (25.0-35.0); MCHC 35.2 g/dL (31.0-37.0); MCV 89.8 fL (80.0-100.0); Mean Platelet Volume 7.1; Monocytes # (A) 0.9 k/uL (0-1.0); Monocytes % (A) 5 %; Neutrophils # (A) 15.5 k/uL (1.3-7.7); Neutrophils % (A) 85 %; Platelet Count 218 k/uL (150-450); RBC 4.44 m/uL (3.80-5.40); WBC 18.3 k/uL (3.8-10.6)
[2019-04-05 12:47] LABS: ALT 15 U/L (9-52); AST 16 U/L (14-36); African American GFR (CKD) >90 (>60 ml/min/1.73 sqM); Alkaline Phosphatase 60 U/L (38-126); Amylase 46 U/L (30-110); Anion Gap 10 mmol/L; Blood Urea Nitrogen 14 mg/dL (7-17); Calcium 9.2 mg/dL (8.4-10.2); Carbon Dioxide 20 mmol/L (22-30); Chloride 109 mmol/L (98-107); Glucose 107 mg/dL (74-99); Sodium 139 mmol/L (137-145); Total Bilirubin 0.7 mg/dL (0.2-1.3); Total Protein 7.3 g/dL (6.3-8.2)
[2019-04-05] MEDS ORDERED: KETOROLAC 30 MG/ML 1 ML VIAL IVP STA (12:49)
[2019-04-05 13:07] LABS: Appearance,Urine Clear (Clear); Bilirubin,Urine Negative (Negative); Blood,Urine Negative (Negative); Color,Urine Yellow; Glucose,Urine (UA) Negative (Negative); Ketones,Urine Negative (Negative); Leukocyte Esterase,Urine Negative (Negative); Nitrite,Urine Negative (Negative); PH, Urine 5.5 (5.0-8.0); Protein,Urine Negative (Negative); Urobilinogen,Urine <2.0 mg/dL (<2.0)
--- NOTE | 2019-04-05 13:36 | ED ---
General Adult HPI - General Source: patient, RN notes reviewed Mode of arrival: ambulatory Limitations: no limitations <Allen Strong - Last Filed: 04/05/19 15:08> <Joseph Merlos - Last Filed: 04/05/19 15:59> - General Chief complaint: Abdominal Pain Stated complaint: Rectal pain Time Seen by Provider: 04/05/19 11:59 - History of Present Illness Initial comments: 39-year-old female presents to the emergency department for a chief complaint of abdominal pain. Patient states she has a history of diverticulitis and perforated bowel. Patient states that last night she started to feel a sharp pain in her left lower quadrant. States she is concerned she may have diverticulitis again. Patient states she has had several episodes of diarrhea. She denies fevers or chills. Denies dysuria. Denies any upper abdominal pain or pain in the right lower quadrant. Denies any vaginal bleeding. No melena or hematochezia. Patient has no other complaints at this time including shortness of breath, chest pain, nausea or vomiting, headache, or visual changes. (Allen Strong) - Related Data Home Medications Medication Instructions Recorded Confirmed Atorvastatin [Lipitor] 20 mg PO HS 01/17/19 04/05/19 Previous Rx's Medication Instructions Recorded Lisinopril [Zestril] 40 mg PO DAILY #30 tab 01/20/19 Allergies Allergy/AdvReac Type Severity Reaction Status Date / Time codeine Allergy Itching Verified 04/05/19 15:10 ertapenem Allergy Rash/Hives Verified 04/05/19 15:10 Review of Systems ROS Other: All systems not noted in ROS Statement are negative. <Allen Strong - Last Filed: 04/05/19 15:08> ROS Other: All systems not noted in ROS Statement are negative. <Joseph Merlos - Last Filed: 04/05/19 15:59> ROS Statement: Those systems with pertinent positive or pertinent negative responses have been documented in the HPI. Past Medical History Past Medical History: Hypertension Additional Past Medical History / Comment(s): diverticulitis perforated bowel no surgery. History of Any Multi-Drug Resistant Organisms: None Reported Past Surgical History: Section, Hernia Repair Past Psychological History: No Psychological Hx Reported Smoking Status: Current some day smoker Past Alcohol Use History: Occasional Past Drug Use History: Marijuana - Past Family History Mother Family Medical History: AFIB <Allen Strong - Last Filed: 04/05/19 15:08> General Exam Limitations: no limitations General appearance: alert, in no apparent distress Head exam: Present: atraumatic, normocephalic, normal inspection Eye exam: Present: normal appearance, PERRL, EOMI. Absent: scleral icterus, conjunctival injection, periorbital swelling ENT exam: Present: normal exam, mucous membranes moist Neck exam: Present: normal inspection, full ROM. Absent: tenderness, meningismus, lymphadenopathy Respiratory exam: Present: normal lung sounds bilaterally. Absent: respiratory distress, wheezes, rales, rhonchi, stridor Cardiovascular Exam: Present: regular rate, normal rhythm, normal heart sounds. Absent: systolic murmur, diastolic murmur, rubs, gallop, clicks GI/Abdominal exam: Present: soft, tenderness (Tenderness with guarding noted to the left lower quadrant. No right lower quadrant or upper abdominal tendernes s.), normal bowel sounds. Absent: distended, guarding, rebound, rigid Neurological exam: Present: alert Psychiatric exam: Present: normal affect, normal mood <Allen Strong - Last Filed: 04/05/19 15:08> Course Vital Signs 04/05/19 04/05/19 11:53 14:56 Temperature 98.3 F 97.5 F L Pulse Rate 83 82 Respiratory 18 18 Rate Blood Pressure 156/104 146/106 O2 Sat by Pulse 96 98 Oximetry Medical Decision Making - Lab Data Result diagrams: 04/05/19 12:25 04/05/19 12:25 <Allen Strong - Last Filed: 04/05/19 15:08> - Lab Data Result diagrams: 04/05/19 12:25 04/05/19 12:25 <Joseph Merlos - Last Filed: 04/05/19 15:59> - Medical Decision Making 39-year-old female presents for a chief complaint of abdominal pain. This has been ongoing since yesterday. HPI is as documented. History is noted to be positive for diverticular disease with perforation in the past. Exam does reveal tenderness of the left lower quadrant with guarding, no rebound. Vitals are stable. Patient is afebrile. Patient was found of leukocytosis of 18.3. CMP is unremarkable. Urine is negative. CT abdomen and pelvis with contrast was obtained which shows acute diverticulitis with minimal perforation but without abscess formation. Patient was started on Zosyn. Patient is noted to have followed with Dr. Foster in the past. 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 Recommend continuing Zosyn, admitting to medicine, and called consulting Dr. Meade. She'll be kept nothing by mouth and given pain medication. (Allen Strong) Case discussed with practitioner Allen. Chart and results reviewed. Case also discussed with Dr. Valente, who will consult for Dr. Daugherty. Case also discussed with Dr. Iraheta, who will admit covering for Dr. Mcdaniels. Both were updated on CT results. (Joseph Merlos) - Lab Data Lab Results 04/05/19 04/05/19 04/05/19 Range/Units 12:25 12:25 12:25 WBC 18.3 H (3.8-10.6) k/uL RBC 4.44 (3.80-5.40) m/uL Hgb 14.0 (11.4-16.0) gm/dL Hct 39.9 (34.0-46.0) % MCV 89.8 (80.0-100.0) fL MCH 31.6 (25.0-35.0) pg MCHC 35.2 (31.0-37.0) g/dL RDW 13.0 (11.5-15.5) % Plt Count 218 (150-450) k/uL Neutrophils % 85 % Lymphocytes % 7 % Monocytes % 5 % Eosinophils % 2 % Basophils % 1 % Neutrophils # 15.5 H (1.3-7.7) k/uL Lymphocytes # 1.3 (1.0-4.8) k/uL Monocytes # 0.9 (0-1.0) k/uL Eosinophils # 0.3 (0-0.7) k/uL Basophils # 0.1 (0-0.2) k/uL Sodium 139 (137-145) mmol/L Potassium 4.0 (3.5-5.1) mmol/L Chloride 109 H (98-107) mmol/L Carbon Dioxide 20 L (22-30) mmol/L Anion Gap 10 mmol/L BUN 14 (7-17) mg/dL Creatinine 0.78 (0.52-1.04) mg/dL Est GFR (CKD-EPI)AfAm >90 (>60 ml/min/1.73 sqM) Est GFR (CKD-EPI)NonAf >90 (>60 ml/min/1.73 sqM) Glucose 107 H (74-99) mg/dL Plasma Lactic Acid Jack 1.0 (0.7-2.0) mmol/L Calcium 9.2 (8.4-10.2) mg/dL Total Bilirubin 0.7 (0.2-1.3) mg/dL AST 16 (14-36) U/L ALT 15 (9-52) U/L Alkaline Phosphatase 60 (38-126) U/L Total Protein 7.3 (6.3-8.2) g/dL Albumin 4.0 (3.5-5.0) g/dL Amylase 46 (30-110) U/L Lipase 78 (23-300) U/L Urine Color Urine Appearance (Clear) Urine pH (5.0-8.0) Ur Specific Florence (1.001-1.035) Urine Protein (Negative) Urine Glucose (UA) (Negative) Urine Ketones (Negative) Urine Blood (Negative) Urine Nitrite (Negative) Urine Bilirubin (Negative) Urine Urobilinogen (<2.0) mg/dL Ur Leukocyte Esterase (Negative) Urine HCG, Qual (Not Detectd) 04/05/19 04/05/19 Range/Units 12:47 12:47 WBC (3.8-10.6) k/uL RBC (3.80-5.40) m/uL Hgb (11.4-16.0) gm/dL Hct (34.0-46.0) % MCV (80.0-100.0) fL MCH (25.0-35.0) pg MCHC (31.0-37.0) g/dL RDW (11.5-15.5) % Plt Count (150-450) k/uL Neutrophils % % Lymphocytes % % Monocytes % % Eosinophils % % Basophils % % Neutrophils # (1.3-7.7) k/uL Lymphocytes # (1.0-4.8) k/uL Monocytes # (0-1.0) k/uL Eosinophils # (0-0.7) k/uL Basophils # (0-0.2) k/uL Sodium (137-145) mmol/L Potassium (3.5-5.1) mmol/L Chloride (98-107) mmol/L Carbon Dioxide (22-30) mmol/L Anion Gap mmol/L BUN (7-17) mg/dL Creatinine (0.52-1.04) mg/dL Est GFR (CKD-EPI)AfAm (>60 ml/min/1.73 sqM) Est GFR (CKD-EPI)NonAf (>60 ml/min/1.73 sqM) Glucose (74-99) mg/dL Plasma Lactic Acid Jack (0.7-2.0) mmol/L Calcium (8.4-10.2) mg/dL Total Bilirubin (0.2-1.3) mg/dL AST (14-36) U/L ALT (9-52) U/L Alkaline Phosphatase (38-126) U/L Total Protein (6.3-8.2) g/dL Albumin (3.5-5.0) g/dL Amylase (30-110) U/L Lipase (23-300) U/L Urine Color Yellow Urine Appearance Clear (Clear) Urine pH 5.5 (5.0-8.0) Ur Specific Florence 1.020 (1.001-1.035) Urine Protein Negative (Negative) Urine Glucose (UA) Negative (Negative) Urine Ketones Negative (Negative) Urine Blood Negative (Negative) Urine Nitrite Negative (Negative) Urine Bilirubin Negative (Negative) Urine Urobilinogen <2.0 (<2.0) mg/dL Ur Leukocyte Esterase Negative (Negative) Urine HCG, Qual Not Detected (Not Detectd) Disposition Time of Disposition: 15:08 <Allen Strong - Last Filed: 04/05/19 15:08> <Joseph Merlos - Last Filed: 04/05/19 15:59> Clinical Impression: Diverticulitis of colon with perforation, Leukocytosis Disposition: ADMITTED IP TO THIS [facility] Condition: Fair Referrals: Corey Mcdaniels MD [Primary Care Provider] - 1-2 days
--- NOTE | 2019-04-05 14:21 | CT ---
EXAMINATION TYPE: CT abdomen pelvis w con DATE OF EXAM: 04/05/2019 REFERENCE: Previous study dated 03/06/2019. HISTORY: abdominal pain HISTORY: LLQ pain CT DLP: 2299.1 mGy Automated exposure control for dose reduction was used. TECHNIQUE: Helical acquisition through the abdomen and pelvis was obtained following the oral ingesti on of without Oral Contrast and following intravenous administration of 100 mL of Isovue 300. The nat a was reformatted in axial, coronal and sagittal projections. FINDINGS: Visualized portions of the lungs are clear. There is no pleural or pericardial fluid. The heart is not enlarged. Within the abdomen, there is a prominent Sara's lobe to the liver. The spleen and gallbladder appea r normal. There is a small, fixed sliding hiatal hernia. Both adrenal glands appear normal. Both kidneys demonstrate function and appear morphologically normal. The pancreas is unremarkable. There is no significant retroperitoneal, iliac or inguinal adenopathy. The bladder is unremarkable. The uterus and ovaries appear normal. There are scattered diverticula along the left side of the colon. There is stranding of the fat adjac ent to the proximal sigmoid colon. There is a small bubble of air adjacent to the sigmoid colon best seen on axial image 52. There is no evidence of abscess formation. There are scattered diverticula elsewhere throughout the colon. The appendix is normal. Small bowel loops are normal caliber. No free fluid is seen. No osseous lesion is seen. IMPRESSION: 1. ACUTE DIVERTICULITIS OF THE SIGMOID COLON WITH MINIMAL PERFORATION BUT WITHOUT ABSCESS FORMATION. 2. FIXED SLIDING HIATAL HERNIA.
[2019-04-05] MEDS ORDERED: PIPERACILLIN-TAZOBACTAM 3.375 GM in SODIUM CHLORIDE 0.9% 100 ML IVPB STA (14:24)
[2019-04-05] MEDS ORDERED: NALOXONE 0.4 MG/ML 1 ML VIAL IV PRN (15:02)
[2019-04-05] MEDS ORDERED: MORPHINE SULFATE 4 MG/ML SYRINGE IV PRN (15:02)
[2019-04-05] MEDS: SODIUM CHLORIDE 0.9% 1,000 ML IV SCH ×2 (15:35→23:27)
--- NOTE | 2019-04-05 15:54 | P.GSCN ---
History of Present Illness Consult date: 04/05/19 History of present illness: CHIEF COMPLAINT: Diverticulitis HISTORY OF PRESENT ILLNESS: The patient is a 39 year old female who comes with acute onset left lower quadrant abdominal pain for 24 hours. She has past history of diverticulitis. Patient comes in with recurrent diverticulitis with last attack at least since January 3 months ago. She is scheduled for colonoscopy in 4-6 weeks. She reports eating burger dip and had developed acute onset lower abdominal pain. She denies any modifying factors. She reports avoiding foods that seeds. No alleviating factors either. CT confirms diverticulitis. Surgery is consulted for management of diverticulitis. PAST MEDICAL HISTORY: See list. PAST SURGICAL HISTORY: See list. MEDICATIONS: See list. ALLERGIES: See list. SOCIAL HISTORY: See list. FAMILY HISTORY: See list. REVIEW OF ORGAN SYSTEMS: CONSTITUTIONAL: No fevers or chills. EYES: Denies any trouble with vision. No glasses. HEENT: No difficulties with hearing. No nosebleeds. No difficulty swallowing. RESPIRATORY: Denies pneumonia. Denies any troubles with breathing or dyspnea on exertion. CARDIOVASCULAR: Denies any chest pain, palpitations, or recent heart attacks. GASTROINTESTINAL: Has change in bowel habits and gas bloat. GENITOURINARY: Denies any blood in urine or increased urinary frequency. NEUROLOGICAL: Denies any numbness or tingling along the distal extremities. No seizure disorders or headaches. MUSCULOSKELETAL: Has back pain, stiffness or joint arthritis. SKIN: No current skin cancer. No rash. PSYCHIATRIC: Denies current depression or suicidal thoughts. ENDOCRINE: Denies current thyroid disorders. Denies any blood sugar glucose intolerance. HEME/LYMPHATIC: Denies any lumps and bumps around the neck. No recent deep venous thrombosis. ALLERGY/IMMUNOLOGY: No immunoglobulin therapy. No immune deficiencies. BREAST: Denies current breast lumps, pain or nipple discharge. PHYSICAL EXAM: VITALS: Reviewed CONSTITUTIONAL: Well developed and in no acute distress. EYES: Conjuctivae without sclera icterus. Pupils are equally round and reactive to light. Extraocular movements grossly intact. HEAD, EARS, NOSE, THROAT: Moist buccal mucosa. Head is atraumatic, normocephalic. Hears conversational speech. No nasal drainage. NECK: Supple. No JV distention. No thyroidomegaly. RESPIRATORY: Non-labored respirations and equal bilateral excursions. No gross wheezes. CARDIOVASCULAR: Regular rate and rhythm. Extremities without moderate edema. Palpable 2+ radial pulses. ABDOMEN: Soft. Obese tender left lower quadrant. No diffuse peritonitis. LYMPH: No neck lymphadenopathy. No axillary lymphadenopathy. MUSCULOSKELETAL: Nail and fingers with good capillary refill. SKIN: Warm and well perfused with good skin turgor. NEUROLOGIC: Cranial nerves I through XII grossly intact. Sensation upper and extremities intact. No focal or lateralizing signs. PSYCH: Appropriate affect. Alert and oriented to person, place and time. Displays appropriate insight. CLINCAL LABS: Reviewed with wet pulsatile count elevated over 18,000 RADIOLOGY: Report reviewed confirms perforated localized diverticulitis with sliding hiatal hernia IMAGING: Independently reviewed CT of the abdomen pelvis independently reviewed demonstrating a localized inflammation of the sigmoid colon. No diffuse free air or pneumoperitoneum. ASSESSMENT: 1. Acute diverticulitis 2. Morbid obesity due to excess calories, BMI 45.1 PLAN: 1. Inpatient hospitalization described. 2. Continue with IV antibiotics. 3. No acute surgical intervention at this time. Thank you for this kind consultation. Past Medical History Past Medical History: Hypertension Additional Past Medical History / Comment(s): diverticulitis perforated bowel no surgery. History of Any Multi-Drug Resistant Organisms: None Reported Past Surgical History: Section, Hernia Repair Past Psychological History: No Psychological Hx Reported Smoking Status: Current some day smoker Past Alcohol Use History: Occasional Past Drug Use History: Marijuana - Past Family History Mother Family Medical History: AFIB Medications and Allergies Home Medications Medication Instructions Recorded Confirmed Type Atorvastatin [Lipitor] 20 mg PO HS 01/17/19 04/05/19 History Lisinopril [Zestril] 40 mg PO DAILY #30 tab 01/20/19 04/05/19 Rx Allergies Allergy/AdvReac Type Severity Reaction Status Date / Time codeine Allergy Itching Verified 04/05/19 15:10 ertapenem Allergy Rash/Hives Verified 04/05/19 15:10 Surgical - Exam Vital Signs Temp Pulse Resp BP Pulse Ox 98.3 F 83 18 156/104 96 04/05/19 11:53 04/05/19 11:53 04/05/19 11:53 04/05/19 11:53 04/05/19 11:53 Results - Labs 04/05/19 12:25 09/29/19 12:25 Abnormal Lab Results - Last 24 Hours (Table) 04/05/19 04/05/19 Range/Units 12:25 12:25 WBC 18.3 H (3.8-10.6) k/uL Neutrophils # 15.5 H (1.3-7.7) k/uL Chloride 109 H (98-107) mmol/L Carbon Dioxide 20 L (22-30) mmol/L Glucose 107 H (74-99) mg/dL Diabetes panel 04/05/19 Range/Units 12:25 Sodium 139 (137-145) mmol/L Potassium 4.0 (3.5-5.1) mmol/L Chloride 109 H (98-107) mmol/L Carbon Dioxide 20 L (22-30) mmol/L BUN 14 (7-17) mg/dL Creatinine 0.78 (0.52-1.04) mg/dL Glucose 107 H (74-99) mg/dL Calcium 9.2 (8.4-10.2) mg/dL AST 16 (14-36) U/L ALT 15 (9-52) U/L Alkaline Phosphatase 60 (38-126) U/L Total Protein 7.3 (6.3-8.2) g/dL Albumin 4.0 (3.5-5.0) g/dL Calcium panel 04/05/19 Range/Units 12:25 Calcium 9.2 (8.4-10.2) mg/dL Albumin 4.0 (3.5-5.0) g/dL Pituitary panel 04/05/19 Range/Units 12:25 Sodium 139 (137-145) mmol/L Potassium 4.0 (3.5-5.1) mmol/L Chloride 109 H (98-107) mmol/L Carbon Dioxide 20 L (22-30) mmol/L BUN 14 (7-17) mg/dL Creatinine 0.78 (0.52-1.04) mg/dL Glucose 107 H (74-99) mg/dL Calcium 9.2 (8.4-10.2) mg/dL Adrenal panel 04/05/19 Range/Units 12:25 Sodium 139 (137-145) mmol/L Potassium 4.0 (3.5-5.1) mmol/L Chloride 109 H (98-107) mmol/L Carbon Dioxide 20 L (22-30) mmol/L BUN 14 (7-17) mg/dL Creatinine 0.78 (0.52-1.04) mg/dL Glucose 107 H (74-99) mg/dL Calcium 9.2 (8.4-10.2) mg/dL Total Bilirubin 0.7 (0.2-1.3) mg/dL AST 16 (14-36) U/L ALT 15 (9-52) U/L Alkaline Phosphatase 60 (38-126) U/L Total Protein 7.3 (6.3-8.2) g/dL Albumin 4.0 (3.5-5.0) g/dL Assessment and Plan (1) Morbid obesity due to excess calories Current Visit: Yes Status: Acute Code(s): E66.01 - MORBID (SEVERE) OBESITY DUE TO EXCESS CALORIES SNOMED Code(s): 557380167 (2) Morbid obesity with BMI of 45.0-49.9, adult Current Visit: Yes Status: Acute Code(s): E66.01 - MORBID (SEVERE) OBESITY DUE TO EXCESS CALORIES; Z68.42 - BODY MASS INDEX (BMI) 45.0-49.9, ADULT SNOMED Code(s): 824142381 (3) Diverticulitis of colon with perforation Current Visit: Yes Status: Acute Code(s): K57.20 - DVTRCLI OF LG INT W PERFORATION AND ABSCESS W/O BLEEDING SNOMED Code(s): 43330742 (4) Leukocytosis (leucocytosis) Current Visit: Yes Status: Acute Code(s): D72.829 - ELEVATED WHITE BLOOD CELL COUNT, UNSPECIFIED SNOMED Code(s): 165449560
[2019-04-05] MEDS ORDERED: PIPERACILLIN-TAZOBACTAM 3.375 GM in SODIUM CHLORIDE 0.9% 100 ML IVPB SCH (16:00)
[2019-04-05] MEDS ORDERED: KETOROLAC 30 MG/ML 1 ML VIAL IVP SCH (18:00)
[2019-04-05 18:07] VITALS: BMI 45.9
[2019-04-05] MEDS: KETOROLAC 30 MG/ML 1 ML VIAL IVP PRN (18:07)
[2019-04-05] MEDS: ATORVASTATIN 20 MG TAB PO SCH (20:39)
[2019-04-05] MEDS: PIPERACILLIN-TAZOBACTAM 3.375 GM in SODIUM CHLORIDE 0.9% 100 ML IVPB SCH (23:27)
[2019-04-06] MEDS: KETOROLAC 30 MG/ML 1 ML VIAL IVP PRN ×3 (02:52→16:35)
[2019-04-06 07:39] LABS: Basophils % (A) 0 %; Eosinophils # (A) 0.2 k/uL (0-0.7); Eosinophils % (A) 2 %; HCT 36.5 % (34.0-46.0); HGB 12.6 gm/dL (11.4-16.0); Lymphocytes # (A) 1.4 k/uL (1.0-4.8); Lymphocytes % (A) 18 %; MCH 30.9 pg (25.0-35.0); MCHC 34.4 g/dL (31.0-37.0); MCV 89.7 fL (80.0-100.0); Mean Platelet Volume 6.2; Monocytes # (A) 0.5 k/uL (0-1.0); Monocytes % (A) 7 %; Neutrophils # (A) 5.2 k/uL (1.3-7.7); Neutrophils % (A) 71 %; Platelet Count 198 k/uL (150-450); RBC 4.07 m/uL (3.80-5.40); RDW 12.9 % (11.5-15.5); WBC 7.4 k/uL (3.8-10.6)
[2019-04-06 07:54] LABS: African American GFR (CKD) >90 (>60 ml/min/1.73 sqM); Anion Gap 7 mmol/L; Blood Urea Nitrogen 10 mg/dL (7-17); Calcium 8.7 mg/dL (8.4-10.2); Carbon Dioxide 23 mmol/L (22-30); Chloride 108 mmol/L (98-107); Glucose 107 mg/dL (74-99); Potassium 3.9 mmol/L (3.5-5.1); Sodium 138 mmol/L (137-145)
[2019-04-06] MEDS: PIPERACILLIN-TAZOBACTAM 3.375 GM in SODIUM CHLORIDE 0.9% 100 ML IVPB SCH ×2 (08:34→16:29)
[2019-04-06] MEDS: SODIUM CHLORIDE 0.9% 1,000 ML IV SCH ×2 (08:35→16:30)
[2019-04-06] MEDS: LISINOPRIL 20 MG TAB PO SCH (08:35)
--- NOTE | 2019-04-06 11:21 | P.PN ---
<Doreen Ovalle Kim - Last Filed: 04/06/19 11:17> Subjective Progress Note Date: 04/06/19 CHIEF COMPLAINT: Diverticulitis HISTORY OF PRESENT ILLNESS: Patient examined this morning at the bedside. Patient continues to report bipolar quadrant abdominal pain. She is currently rating her pain and 8/10. Denies passing flatus or having a bowel movement. She reports mild nausea but denies emesis. WBC 7.4. PHYSICAL EXAM: VITAL SIGNS: Reviewed. GENERAL: Well-developed in no acute distress. HEENT: No sclera icterus. Extraocular movements grossly intact. Moist buccal mucosa. Head is atraumatic, normocephalic. ABDOMEN: Obese. Soft. Nondistended. Tenderness with palpation to left lower quadrant. No peritoneal signs. NEUROLOGIC: Alert and oriented. Cranial nerves II through XII grossly intact. ASSESSMENT: 1. Acute diverticulitis with microperforation PLAN: 1. Continue IV antibiotics. Monitor WBC 2. Continue NPO status due to current pain rating and nausea. If symptoms improve, may begin clear liquid diet Nurse practitioner note has been reviewed by physician. Signing provider agrees with the documented findings, assessment, and plan of care. Objective - Vital Signs Vital signs: Vital Signs Temp 98.8 F 04/06/19 07:00 Pulse 79 04/06/19 07:00 Resp 16 04/06/19 07:00 BP 136/88 04/06/19 07:00 Pulse Ox 97 04/06/19 07:00 Intake & Output 04/05/19 04/06/19 04/06/19 18:59 06:59 18:59 Intake Total 0 Balance 0 Weight 119.295 kg Intake: Oral 0 Other: Voiding Method Toilet # Voids 1 - Labs CBC & Chem 7: 04/06/19 07:18 04/06/19 07:18 Labs: Abnormal Lab Results - Last 24 Hours (Table) 04/05/19 04/05/19 04/06/19 Range/Units 12:25 12:25 07:18 WBC 18.3 H (3.8-10.6) k/uL Neutrophils # 15.5 H (1.3-7.7) k/uL Chloride 109 H 108 H (98-107) mmol/L Carbon Dioxide 20 L (22-30) mmol/L Glucose 107 H 107 H (74-99) mg/dL <Herve Foster - Last Filed: 04/06/19 15:18> Subjective As above. Patient well-known to our service. This is the patient's third CAT scan in the last few months. She was seen in the office in late February. A second CAT scan was ordered at that time which actually showed no active diverticulitis. She was mildly tender however at that time. She presents back to the hospital with left lower quadrant pain and CAT scan now definitely shows acute diverticulitis. Continue IV antibiotics. Will consult Dr. Garcia. Begin clear liquids. Objective - Vital Signs Vital signs: Vital Signs Temp 98.8 F 04/06/19 07:00 Pulse 79 04/06/19 07:00 Resp 16 04/06/19 07:00 BP 136/88 04/06/19 07:00 Pulse Ox 97 04/06/19 07:00 Intake & Output 04/05/19 04/06/19 04/06/19 18:59 06:59 18:59 Intake Total 0 1160 Balance 0 1160 Weight 119.295 kg Intake: IV 1160 Piperacillin-Tazobactam 3 100 .375 gm In Sodium Chloride 0.9% 100 ml @ 25 mls/hr IVPB Q8HR ZEYNEP Rx# :[id number] Piperacillin-Tazobactam 3 100 .375 gm In Sodium Chloride 0.9% 100 ml @ 25 mls/hr IVPB Q8HR ZEYNEP Rx# :[id number] Sodium Chloride 0.9% 1, 960 000 ml @ 120 mls/hr IV . Q8H20M ZEYNEP Rx#:[id number] Oral 0 Other: Voiding Method Toilet # Voids 1 - Labs CBC & Chem 7: 04/06/19 07:18 04/06/19 07:18 Labs: Abnormal Lab Results - Last 24 Hours (Table) 04/06/19 Range/Units 07:18 Chloride 108 H (98-107) mmol/L Glucose 107 H (74-99) mg/dL
--- NOTE | 2019-04-06 13:57 | P.HPIM ---
History of Present Illness H&P Date: 04/06/19 Chief Complaint: Abdominal pain This is a 39-year-old female patient of Dr. Mcdaniels with past medical history of hypertension, hyperlipidemia, diverticulitis with perforation under the care of Dr. Foster and Dr. Coleman in the past requiring IV antibiotics with Invanz for 3 weeks in January. Patient complains of abdominal pain was sharp pain in the left lower quadrant that started last evening. She had several episodes of diarrhea. No fever or chills. No dysuria no upper abdominal pain. She reports one episode of nausea vomiting a small amount of loose stool. She denies any blood in her stools. She now has nausea. She denies any further vomiting. She denies diarrhea. n Patient is scheduled for colonoscopy at the end of April with Dr. Foster. Regarding the IV antibiotics in January, patient states that she completed 13 day course but the last 10 days were discontinued. She did develop a rash and was taking Benadryl which was causing her blood pressure to go high along with headaches and her PCP recommended discontinuing the Benadryl. Antibiotics were done at home with homecare. Outpatient CAT scan on March 06 revealed interval resolution of the previously seen acute uncompensated sigmoid diverticulitis. Previously seen pneumoperitoneum also resolved. Bilateral slightly asymmetrical sacroiliitis can be seen inflammatory bowel disease or arthropathies. This is unlikely degenerative given the patient's age. Patient came into [facility] emergency center for evaluation. She was afebrile, blood pressure initially 156/104. WBC 18.3, hemoglobin 14.0, platelet count 218. BUN 14 creatinine 0.78. CO2 20 and chloride 109, blood sugar 107. Liver function tests within normal range. Lactic acid 1.0. Urinalysis negative. HCG not detected. CAT scan of the abdomen and pelvis reveals acute diverticulitis of the sigmoid colon with minimal perforation but without abscess formation. Fixed sliding hiatal hernia. Patient was started on Zosyn, pain medication and patient admitted to the [facility] floor and consults in place with general surgery and Dr. Coleman. Review of Systems Constitutional: Reports poor appetite, Denies anorexia, Denies chills, Denies fatigue, Denies fever, Denies lethargy, Denies malaise, Denies weight loss Eyes: denies blurred vision, denies pain Ears, nose, mouth and throat: Denies dysphagia, Denies headache, Denies nasal congestion, Denies nasal discharge, Denies sore throat, Denies vertigo Cardiovascular: Denies chest pain, Denies decreased exercise tolerance, Denies dyspnea on exertion, Denies edema, Denies leg edema, Denies lightheadedness, Denies palpitations, Denies shortness of breath, Denies syncope Respiratory: Denies cough, Denies cough with sputum, Denies dyspnea, Denies excessive sputum, Denies hemoptysis, Denies home oxygen, Denies wheezing Gastrointestinal: Reports abdominal pain, Reports bloating, Reports loss of appetite, Reports nausea, Denies diarrhea, Denies vomiting Genitourinary: Denies dysuria, Denies hematuria, Denies urgency, Denies urinary frequency Musculoskeletal: Denies frequent falls, Denies gait dysfunction, Denies muscle weakness, Denies myalgias Integumentary: Denies pruritus, Denies rash, Denies wounds Neurological: Denies change in mentation, Denies confusion, Denies numbness, Denies seizures, Denies weakness Psychiatric: Denies anxiety, Denies depression Endocrine: Denies fatigue, Denies weight change Past Medical History Past Medical History: Hyperlipidemia, Hypertension Additional Past Medical History / Comment(s): diverticulitis perforated bowel no surgery. History of Any Multi-Drug Resistant Organisms: None Reported Past Surgical History: Section, Hernia Repair Additional Past Surgical History / Comment(s): x3 Past Anesthesia/Blood Transfusion Reactions: No Reported Reaction Past Psychological History: ADD/ADHD Additional Psychological History / Comment(s): single, has 4 children, 1 pet dog. Patient smokes marijuana. no . no travel Smoking Status: Light tobacco smoker Past Alcohol Use History: Occasional Additional Past Alcohol Use History / Comment(s): Patient smokes cigarettes occasionally. She smokes less than one pack per week. She smokes marijuana on a regular basis. She drinks alcohol occasionally. Past Drug Use History: Marijuana - Past Family History Mother Family Medical History: AFIB Additional Family Medical History / Comment(s): Mother is alive with past medic al history of coronary artery disease. Father Additional Family Medical History / Comment(s): Father is alive with history of coronary artery disease and skin cancer. Patient does not have any siblings. Patient has 4 children with no major medical problems. Medications and Allergies Home Medications Medication Instructions Recorded Confirmed Type Atorvastatin [Lipitor] 20 mg PO HS 01/17/19 04/05/19 History Lisinopril [Zestril] 40 mg PO DAILY #30 tab 01/20/19 04/05/19 Rx Allergies Allergy/AdvReac Type Severity Reaction Status Date / Time codeine Allergy Itching Verified 04/05/19 15:10 ertapenem Allergy Rash/Hives Verified 04/05/19 15:10 Physical Exam Vitals: Vital Signs Temp Pulse Pulse Resp BP BP Pulse Ox 04/06/19 07:00 98.8 F 79 16 136/88 97 04/05/19 21:00 98.3 F 89 18 159/88 95 04/05/19 17:39 98.1 F 79 16 136/86 95 04/05/19 16:56 97.9 F 83 18 145/92 97 04/05/19 14:56 97.5 F L 82 18 146/106 98 Intake and Output 04/05/19 04/06/19 04/06/19 22:59 06:59 14:59 Intake Total 0 0 Balance 0 0 Intake: Oral 0 0 Other: Voiding Method Toilet # Voids 1 1 Gen: This is a 39-year-old morbidly obese female. Patient is resting in bed and appears to be comfortable and in no acute distress. HEENT: Head is atraumatic, normocephalic. Pupils equal, round. Sclerae is anicteric. NECK: Supple. No JVD. No lymphadenopathy. No thyromegaly. LUNGS: Clear to auscultation. No wheezes or rhonchi. No intercostal retractions. HEART: Regular rate and rhythm. No murmur. ABDOMEN: Soft. Bowel sounds are present. No masses. Left lower quadrant tenderness. EXTREMITIES: No pedal edema. No calf tenderness. NEUROLOGICAL: Patient is awake, alert and oriented x3. Cranial nerves 2 through 12 are grossly intact. Results CBC & Chem 7: 04/06/19 07:18 04/06/19 07:18 Labs: Abnormal Lab Results - Last 24 Hours (Table) 04/06/19 Range/Units 07:18 Chloride 108 H (98-107) mmol/L Glucose 107 H (74-99) mg/dL Thrombosis Risk Factor Assmnt - DVT/VTE Prophylaxis DVT/VTE Prophylaxis: Pharmacologic Prophylaxis ordered - Choose All That Apply Each Factor Represents 1 point: History of:, Obesity (BMI >25) Other congenital or acquired thrombophilia - If yes, enter type in comment: No Thrombosis Risk Factor Assessment Total Risk Factor Score: 2 Thrombosis Risk Factor Assessment Level: Low Risk Assessment and Plan Plan: 1. Acute diverticulitis with sepsis, no perforation. Consult with Dr. Francisco potter. Continue Zosyn, Toradol, morphine for pain control, Zofran as needed for nausea, IV fluids at 120 mL per hour. Patient is nothing by mouth. Blood culture has been obtained. Consult with Dr. Coleman added. 2. Hypertension. Continue lisinopril 40 mg daily. 3. Hyperlipidemia. Continue atorvastatin 20 mg at bedtime. 4. Morbid obesity. 5. DVT prophylaxis. Heparin subcu. 6. GI prophylaxis. Protonix. 7. Rare tobacco use and dependence. 8. Marijuana use. Patient will be admitted to the hospital for a minimum of 2 night stay. Discharge plan: Return home Impression and plan of care have been directed as dictated by the signing physician. Nola Connor nurse practitioner acting as scribe for signing physician.
--- NOTE | 2019-04-06 14:02 | P.CONS ---
History of Present Illness - Reason for Consult Consult date: 04/06/19 Diverticulitis - History of Present Illness This is a 39-year-old female patient known to ID service as she was s jaspreet during a hospitalization in January 2019 for acute diverticulitis and was discharged home on IV Invanz. Patient did develop an ALLERGIC reaction. Patient complains of abdominal pain was sharp pain in the left lower quadrant that started last evening. She had several episodes of diarrhea. No fever or chills. No dysuria no upper abdominal pain. She reports one episode of nausea vomiting a small amount of loose stool. She denies any blood in her stools. She now has nausea. She denies any further vomiting. She denies diarrhea. Patient is scheduled for colonoscopy at the end of April with Dr. Foster. Regarding the IV antibiotics in January, patient states that she completed 13 day course but the last 10 days were discontinued. She did develop a rash and was taking Benadryl which was causing her blood pressure to go high along with headaches and her PCP recommended discontinuing the Benadryl. Antibiotics were done at home with homecare. Outpatient CAT scan on March 06 revealed interval resolution of the previously seen acute uncompensated sigmoid diverticulitis. Previously seen pneumoperitoneum also resolved. Bilateral slightly asymmetrical sacroiliitis can be seen inflammatory bowel disease or arthropathies. This is unlikely degenerative given the patient's age. Patient came into [facility] emergency center for evaluation. She was afebrile, blood pressure initially 156/104. WBC 18.3, hemoglobin 14.0, platelet count 218. BUN 14 creatinine 0.78. CO2 20 and chloride 109, blood sugar 107. Liver function tests within normal range. Lactic acid 1.0. Urinalysis negative. HCG not detected. CAT scan of the abdomen and pelvis reveals acute diverticulitis of the sigmoid colon with minimal perforation but without abscess formation. Fixed sliding hiatal hernia. Patient was started on Zosyn, pain medication and patient admitted to the [facility] floor and consults in place with general surgery as well. Review of Systems Constitutional: Reports poor appetite, Denies anorexia, Denies chills, Denies fatigue, Denies fever, Denies lethargy, Denies malaise, Denies weight loss Eyes: denies blurred vision, denies pain Ears, nose, mouth and throat: Denies dysphagia, Denies headache, Denies nasal congestion, Denies nasal discharge, Denies sore throat, Denies vertigo Cardiovascular: Denies chest pain, Denies decreased exercise tolerance, Denies dyspnea on exertion, Denies edema, Denies leg edema, Denies lightheadedness, Denies palpitations, Denies shortness of breath, Denies syncope Respiratory: Denies cough, Denies cough with sputum, Denies dyspnea, Denies excessive sputum, Denies hemoptysis, Denies home oxygen, Denies wheezing Gastrointestinal: Reports abdominal pain, Reports bloating, Reports loss of appetite, Reports nausea, Denies diarrhea, Denies vomiting Genitourinary: Denies dysuria, Denies hematuria, Denies urgency, Denies urinary frequency Musculoskeletal: Denies frequent falls, Denies gait dysfunction, Denies muscle weakness, Denies myalgias Integumentary: Denies pruritus, Denies rash, Denies wounds Neurological: Denies change in mentation, Denies confusion, Denies numbness, Denies seizures, Denies weakness Psychiatric: Denies anxiety, Denies depression Endocrine: Denies fatigue, Denies weight change Past Medical History Past Medical History: Hyperlipidemia, Hypertension Additional Past Medical History / Comment(s): diverticulitis perforated bowel no surgery. History of Any Multi-Drug Resistant Organisms: None Reported Past Surgical History: Section, Hernia Repair Additional Past Surgical History / Comment(s): x3 Past Anesthesia/Blood Transfusion Reactions: No Reported Reaction Past Psychological History: ADD/ADHD Additional Psychological History / Comment(s): single, has 4 children, 1 pet dog. Patient smokes marijuana. no . no travel Smoking Status: Light tobacco smoker Past Alcohol Use History: Occasional Additional Past Alcohol Use History / Comment(s): Patient smokes cigarettes occasionally. She smokes less than one pack per week. She smokes marijuana on a regular basis. She drinks alcohol occasionally. Past Drug Use History: Marijuana - Past Family History Mother Family Medical History: AFIB Additional Family Medical History / Comment(s): Mother is alive with past medical history of coronary artery disease. Father Additional Family Medical History / Comment(s): Father is alive with history of coronary artery disease and skin cancer. Patient does not have any siblings. Patient has 4 children with no major medical problems. Medications and Allergies Home Medications Medication Instructions Recorded Confirmed Type Atorvastatin [Lipitor] 20 mg PO HS 01/17/19 04/05/19 History Lisinopril [Zestril] 40 mg PO DAILY #30 tab 01/20/19 04/05/19 Rx Allergies Allergy/AdvReac Type Severity Reaction Status Date / Time codeine Allergy Itching Verified 04/05/19 15:10 ertapenem Allergy Rash/Hives Verified 04/05/19 15:10 Physical Exam Vitals: Vital Signs Temp Pulse Pulse Resp BP BP Pulse Ox 04/06/19 07:00 98.8 F 79 16 136/88 97 04/05/19 21:00 98.3 F 89 18 159/88 95 04/05/19 17:39 98.1 F 79 16 136/86 95 04/05/19 16:56 97.9 F 83 18 145/92 97 04/05/19 14:56 97.5 F L 82 18 146/106 98 Intake and Output 04/05/19 04/06/19 04/06/19 22:59 06:59 14:59 Intake Total 0 0 Balance 0 0 Intake: Oral 0 0 Other: Voiding Method Toilet # Voids 1 1 Gen: This is a 39-year-old morbidly obese female. Patient is resting in bed and appears to be comfortable and in no acute distress. HEENT: Head is atraumatic, normocephalic. Pupils equal, round. Sclerae is anicteric. NECK: Supple. No JVD. No lymphadenopathy. No thyromegaly. LUNGS: Clear to auscultation. No wheezes or rhonchi. No intercostal retractions. HEART: Regular rate and rhythm. No murmur. ABDOMEN: Soft. Bowel sounds are present. No masses. Left lower quadrant tenderness. EXTREMITIES: No pedal edema. No calf tenderness. NEUROLOGICAL: Patient is awake, alert and oriented x3. Cranial nerves 2 through 12 are grossly intact. Results Results: Laboratory Results WBC 7.4 k/uL (3.8-10.6) 04/06/19 07:18 RBC 4.07 m/uL (3.80-5.40) 04/06/19 07:18 Hgb 12.6 gm/dL (11.4-16.0) 04/06/19 07:18 Hct 36.5 % (34.0-46.0) 04/06/19 07:18 MCV 89.7 fL (80.0-100.0) 04/06/19 07:18 MCH 30.9 pg (25.0-35.0) 04/06/19 07:18 MCHC 34.4 g/dL (31.0-37.0) 04/06/19 07:18 RDW 12.9 % (11.5-15.5) 04/06/19 07:18 Plt Count 198 k/uL (150-450) 04/06/19 07:18 Neutrophils % 71 % 04/06/19 07:18 Lymphocytes % 18 % 04/06/19 07:18 Monocytes % 7 % 04/06/19 07:18 Eosinophils % 2 % 04/06/19 07:18 Basophils % 0 % 04/06/19 07:18 Neutrophils # 5.2 k/uL (1.3-7.7) 04/06/19 07:18 Lymphocytes # 1.4 k/uL (1.0-4.8) 04/06/19 07:18 Monocytes # 0.5 k/uL (0-1.0) 04/06/19 07:18 Eosinophils # 0.2 k/uL (0-0.7) 04/06/19 07:18 Basophils # 0.0 k/uL (0-0.2) 04/06/19 07:18 Sodium 138 mmol/L (137-145) 04/06/19 07:18 Potassium 3.9 mmol/L (3.5-5.1) 04/06/19 07:18 Chloride 108 mmol/L (98-107) H 04/06/19 07:18 Carbon Dioxide 23 mmol/L (22-30) 04/06/19 07:18 Anion Gap 7 mmol/L 04/06/19 07:18 BUN 10 mg/dL (7-17) 04/06/19 07:18 Creatinine 0.79 mg/dL (0.52-1.04) 04/06/19 07:18 Est GFR (CKD-EPI)AfAm >90 (>60 ml/min/1.73 sqM) 04/06/19 07:18 Est GFR (CKD-EPI)NonAf >90 (>60 ml/min/1.73 sqM) 04/06/19 07:18 Glucose 107 mg/dL (74-99) H 04/06/19 07:18 Plasma Lactic Acid Jack 1.0 mmol/L (0.7-2.0) 04/05/19 12:25 Calcium 8.7 mg/dL (8.4-10.2) 04/06/19 07:18 Total Bilirubin 0.7 mg/dL (0.2-1.3) 04/05/19 12:25 AST 16 U/L (14-36) 04/05/19 12:25 ALT 15 U/L (9-52) 04/05/19 12:25 Alkaline Phosphatase 60 U/L (38-126) 04/05/19 12:25 Total Protein 7.3 g/dL (6.3-8.2) 04/05/19 12:25 Albumin 4.0 g/dL (3.5-5.0) 04/05/19 12:25 Amylase 46 U/L (30-110) 04/05/19 12:25 Lipase 78 U/L (23-300) 04/05/19 12:25 Urine Color Yellow 04/05/19 12:47 Urine Appearance Clear (Clear) 04/05/19 12:47 Urine pH 5.5 (5.0-8.0) 04/05/19 12:47 Ur Specific Riparius 1.020 (1.001-1.035) 04/05/19 12:47 Urine Protein Negative (Negative) 04/05/19 12:47 Urine Glucose (UA) Negative (Negative) 04/05/19 12:47 Urine Ketones Negative (Negative) 04/05/19 12:47 Urine Blood Negative (Negative) 04/05/19 12:47 Urine Nitrite Negative (Negative) 04/05/19 12:47 Urine Bilirubin Negative (Negative) 04/05/19 12:47 Urine Urobilinogen <2.0 mg/dL (<2.0) 04/05/19 12:47 Ur Leukocyte Esterase Negative (Negative) 04/05/19 12:47 Urine HCG, Qual Not Detected (Not Detectd) 04/05/19 12:47 CBC & Chem 7: 04/06/19 07:18 04/06/19 07:18 Labs: Abnormal Lab Results - Last 24 Hours (Table) 04/06/19 Range/Units 07:18 Chloride 108 H (98-107) mmol/L Glucose 107 H (74-99) mg/dL Assessment and Plan Plan: This is a 39-year-old female who presented to the hospital with acute diverticulitis and sepsis without perforation. She is followed by general surgery. Patient has been started on Zosyn which will be continued. Continue pain management and medication for nausea as well as IV fluids. Blood culture has been obtained. Continue supportive care. Further recommendations as patient progresses. The above dictated assessment and findings were discussed with Dr. Coleman. The impression and plan of care have been directed as dictated. Nola Connor nurse practitioner acting as scribe for Dr. Coleman.
[2019-04-06] MEDS: ATORVASTATIN 20 MG TAB PO SCH (20:01)
[2019-04-06] MEDS: HEPARIN SODIUM,PORCINE 5,000 UNIT/ML 1 ML VIAL SQ SCH (20:01)
--- NOTE | 2019-04-06 23:09 | P.CON ---
Consult Note - . Consult date: 04/06/19 Assessment/Plan:: This is a 39-year-old female patient known to ID service as she was seen during a hospitalization in January 2019 for acute diverticulitis and was discharged home on IV Invanz. Patient did develop an ALLERGIC reaction. Patient complains of abdominal pain was sharp pain in the left lower quadrant that started last evening. She had several episodes of diarrhea. No fever or chills. No dysuria no upper abdominal pain. She reports one episode of nausea vomiting a small amount of loose stool. She denies any blood in her stools. She now has nausea. She denies any further vomiting. She denies diarrhea. Patient is scheduled for colonoscopy at the end of April with Dr. Foster. Regarding the IV antibiotics in January, patient states that she completed 13 day course but the last 10 days were discontinued. She did develop a rash and was taking Benadryl which was causing her blood pressure to go high along with headaches and her PCP recommended discontinuing the Benadryl. Antibiotics were done at home with homecare. Outpatient CAT scan on March 06 revealed interval resolution of the previously seen acute uncompensated sigmoid diverticulitis. Previously seen pneumoperitoneum also resolved. Bilateral slightly asymmetrical sacroiliitis can be seen inflammatory bowel disease or arthropathies. This is unlikely degenerative given the patient's age. Patient came into [facility] emergency center for evaluation. She was afebrile, blood pressure initially 156/104. WBC 18.3, hemoglobin 14.0, platelet count 218. BUN 14 creatinine 0.78. CO2 20 and chloride 109, blood sugar 107. Liver function tests within normal range. Lactic acid 1.0. Urinalysis negative. HCG not detected. CAT scan of the abdomen and pelvis reveals acute diverticulitis of the sigmoid colon with minimal perforation but without abscess formation. Fixed sliding hiatal hernia. Patient was started on Zosyn, pain medication and patient admitted to the [facility] floor and consults in place with general surgery as well. Please see the consult note is dictated by nurse practitioner Mrs. Nola Connor. This 39-year-old woman has had onset of abdominal pain, left lower quadrant similar to what she had last time. She was treated with outpatient intravenous antibiotic therapy and almost completed her course of therapy but then started to have some toxicity from the antibiotic, with her resolution of fevers chills abdominal pain and eating a regular diet antibiotic therapy was discontinued. Now many weeks later has had another bout of abdominal pain with what appears to be a new episode of diverticulitis. She's been seen by surgery with no plans for surgical intervention as long as she improves. She reports she is improving and hospital with current antibiotic therapy of Zosyn which she is tolerating well. This will be continued for now. May require this in the outpatient setting depending on findings from cultures in the next short period of time. Patient will need endoscopy once she has had improvement of inflammation of her colon so the plans can be made as to a surgical intervention. If she worsens is evidence of free air or worsening symptoms may need to go to the operating room on a more urgent basis. Her severe leukocytosis starting to improve hopefully showing the clinical response to the current antibiotic therapy. However still having ongoing significant discomfort which is concerning. I agree with evaluation, assessment and plan is dictated by nurse practitioner Mrs. Nola Connor.
[2019-04-07] MEDS: PIPERACILLIN-TAZOBACTAM 3.375 GM in SODIUM CHLORIDE 0.9% 100 ML IVPB SCH ×3 (00:03→16:39)
[2019-04-07] MEDS: KETOROLAC 30 MG/ML 1 ML VIAL IVP PRN ×3 (00:05→20:56)
[2019-04-07] MEDS: SODIUM CHLORIDE 0.9% 1,000 ML IV SCH ×3 (00:45→16:39)
[2019-04-07] MEDS: LISINOPRIL 20 MG TAB PO SCH (07:24)
[2019-04-07] MEDS: HEPARIN SODIUM,PORCINE 5,000 UNIT/ML 1 ML VIAL SQ SCH ×2 (07:24→20:55)
[2019-04-07] MEDS: PANTOPRAZOLE 40 MG/10 ML VIAL IVP SCH (07:24)
[2019-04-07 07:59] LABS: African American GFR (CKD) >90 (>60 ml/min/1.73 sqM); Anion Gap 7 mmol/L; Basophils % (A) 0 %; Blood Urea Nitrogen 7 mg/dL (7-17); Calcium 8.8 mg/dL (8.4-10.2); Carbon Dioxide 25 mmol/L (22-30); Chloride 108 mmol/L (98-107); Eosinophils # (A) 0.3 k/uL (0-0.7); Eosinophils % (A) 3 %; Glucose 101 mg/dL (74-99); HCT 36.3 % (34.0-46.0); HGB 12.8 gm/dL (11.4-16.0); Lymphocytes # (A) 1.5 k/uL (1.0-4.8); Lymphocytes % (A) 17 %; MCH 31.6 pg (25.0-35.0); MCHC 35.3 g/dL (31.0-37.0); MCV 89.7 fL (80.0-100.0); Mean Platelet Volume 6.2; Monocytes # (A) 0.7 k/uL (0-1.0); Monocytes % (A) 7 %; Neutrophils # (A) 6.7 k/uL (1.3-7.7); Neutrophils % (A) 72 %; Platelet Count 217 k/uL (150-450); Potassium 4.4 mmol/L (3.5-5.1); RBC 4.05 m/uL (3.80-5.40); RDW 12.8 % (11.5-15.5); Sodium 140 mmol/L (137-145); WBC 9.3 k/uL (3.8-10.6)
[2019-04-07] MEDS: ONDANSETRON 4 MG/2 ML VIAL IVP PRN (09:23)
--- NOTE | 2019-04-07 11:35 | P.PN ---
<Doreen Ovalle - Last Filed: 04/07/19 11:33> Subjective Progress Note Date: 04/07/19 CHIEF COMPLAINT: Diverticulitis HISTORY OF PRESENT ILLNESS: Patient examined this morning at the bedside. She reports her abdominal pain is slightly better this morning. Currently rating 7/10. She states once she finds a comfortable position in the bed she feels better but movement makes her pain worse. Denies nausea or vomiting. Tolerating clear liquid diet. PHYSICAL EXAM: VITAL SIGNS: Reviewed. GENERAL: Well-developed in no acute distress. HEENT: No sclera icterus. Extraocular movements grossly intact. Moist buccal mucosa. Head is atraumatic, normocephalic. ABDOMEN: Obese. Soft. Nondistended. Tenderness with palpation to left lower quadrant. No peritoneal signs. NEUROLOGIC: Alert and oriented. Cranial nerves II through XII grossly intact. ASSESSMENT: 1. Acute diverticulitis PLAN: 1. Continue IV antibiotics per ID. Monitor WBC 2. Continue clear liquid diet Nurse practitioner note has been reviewed by physician. Signing provider agrees with the documented findings, assessment, and plan of care. Objective - Vital Signs Vital signs: Vital Signs Temp 97.0 F L 04/07/19 05:41 Pulse 62 04/07/19 05:41 Resp 18 04/07/19 08:00 BP 123/85 04/07/19 05:41 Pulse Ox 97 04/07/19 05:41 Intake & Output 04/06/19 04/07/19 04/07/19 18:59 06:59 18:59 Intake Total 1160 450 Balance 1160 450 Intake: IV 1160 Piperacillin-Tazobactam 3 100 .375 gm In Sodium Chloride 0.9% 100 ml @ 25 mls/hr IVPB Q8HR ZEYNEP Rx# :[id number] Piperacillin-Tazobactam 3 100 .375 gm In Sodium Chloride 0.9% 100 ml @ 25 mls/hr IVPB Q8HR ZEYNEP Rx# :[id number] Sodium Chloride 0.9% 1, 960 000 ml @ 120 mls/hr IV . [id number] ZEYNEP Rx#:[id number] Oral 450 Other: Voiding Method Toilet Toilet # Voids 1 - Labs CBC & Chem 7: 04/07/19 07:10 04/07/19 07:10 Labs: Abnormal Lab Results - Last 24 Hours (Table) 04/07/19 Range/Units 07:10 Chloride 108 H (98-107) mmol/L Glucose 101 H (74-99) mg/dL Microbiology - Last 24 Hours (Table) 04/05/19 14:30 Blood Culture - Preliminary Blood No Growth after 24 hours <DeshaunStephanie [email or web address] - Last Filed: 04/08/19 07:54> Subjective Patient was evaluated yesterday around noon. At that time doing better. Pain was improving. Continue clear liquids for now. Continue IV antibiotics. Objective - Vital Signs Vital signs: Vital Signs Temp 97.8 F 04/07/19 22:10 Pulse 59 L 04/07/19 22:10 Resp 20 04/07/19 22:10 BP 164/99 04/07/19 22:10 Pulse Ox 98 04/07/19 22:10 Intake & Output 04/07/19 04/08/19 04/08/19 18:59 06:59 18:59 Intake Total 200 Balance 200 Intake: Oral 200 Other: Voiding Method Toilet Toilet # Voids 2 1 # Bowel Movements 0 - Labs CBC & Chem 7: 04/07/19 07:10 04/07/19 07:10 Labs: Abnormal Lab Results - Last 24 Hours (Table) 04/07/19 Range/Units 07:10 Chloride 108 H (98-107) mmol/L Glucose 101 H (74-99) mg/dL Microbiology - Last 24 Hours (Table) 04/05/19 14:30 Blood Culture - Preliminary Blood No Growth after 48 hours
--- NOTE | 2019-04-07 14:16 | P.PN ---
Subjective Progress Note Date: 04/07/19 This is a 39-year-old female patient of Dr. Mcdaniels with past medical history of hypertension, hyperlipidemia, diverticulitis with perforation under the care of Dr. Foster and Dr. Coleman in the past requiring IV antibiotics with Invanz for 3 weeks in January. Patient complains of abdominal pain was sharp pain in the left lower quadrant that started last evening. She had several episodes of diarrhea. No fever or chills. No dysuria no upper abdominal pain. She reports one episode of nausea vomiting a small amount of loose stool. She denies any blood in her stools. She now has nausea. She denies any further vomiting. She denies diarrhea. n Patient is scheduled for colonoscopy at the end of April with Dr. Foster. Regarding the IV antibiotics in January, patient states that she completed 13 day course but the last 10 days were discontinued. She did develop a rash and was taking Benadryl which was causing her blood pressure to go high along with headaches and her PCP recommended discontinuing the Benadryl. Antibiotics were done at home with homecare. Outpatient CAT scan on March 06 revealed interval resolution of the previously seen acute uncompensated sigmoid diverticulitis. Previously seen pneumoperitoneum also resolved. Bilateral slightly asymmetrical sacroiliitis can be seen inflammatory bowel disease or arthropathies. This is unlikely degenerative given the patient's age. Patient came into [facility] emergency center for evaluation. She was afebrile, blood pressure initially 156/104. WBC 18.3, hemoglobin 14.0, platelet count 218. BUN 14 creatinine 0.78. CO2 20 and chloride 109, blood sugar 107. Liver function tests within normal range. Lactic acid 1.0. Urinalysis negative. HCG not detected. CAT scan of the abdomen and pelvis reveals acute diverticulitis of the sigmoid colon with minimal perforation but without abscess formation. Fixed sliding hiatal hernia. Patient was started on Zosyn, pain medication and patient admitted to the [facility] floor and consults in place with general surgery and Dr. Coleman. 04/07: Patient has been evaluated by Dr. Coleman with continuation of Zosyn. Anticipate need for IV antibiotics at the time of discharge. Patient may require surgical intervention during this hospitalization if pain is not i mproving. Fortunately, patient states that her pain is better today running 4- 5. Toradol is helping with pain. She states she had sweats during the night but no documented fever. She had nausea this morning but this has resolved. Patient states that Dr. Sánchez wanted to advance her diet but she wanted to stand clear liquids. At this time, she is willing to try full liquids which will be started. She has been afebrile, heart rate 62, blood pressure 123/85, pulse ox 97% on room air. CBC is normal, chloride 108, creatinine 0.84. Blood culture no growth at 48 hours. Objective - Vital Signs Vital signs: Vital Signs Temp 97.0 F L 04/07/19 05:41 Pulse 62 04/07/19 05:41 Resp 18 04/07/19 08:00 BP 123/85 04/07/19 05:41 Pulse Ox 97 04/07/19 05:41 Intake & Output 04/06/19 04/07/19 04/07/19 18:59 06:59 18:59 Intake Total 1160 450 Balance 1160 450 Intake: IV 1160 Piperacillin-Tazobactam 3 100 .375 gm In Sodium Chloride 0.9% 100 ml @ 25 mls/hr IVPB Q8HR ZEYNEP Rx# :[id number] Piperacillin-Tazobactam 3 100 .375 gm In Sodium Chloride 0.9% 100 ml @ 25 mls/hr IVPB Q8HR ZEYNEP Rx# :[id number] Sodium Chloride 0.9% 1, 960 000 ml @ 120 mls/hr IV . Q8H20M ZEYNEP Rx#:[id number] Oral 450 Other: Voiding Method Toilet Toilet # Voids 1 - Exam Review of Systems Constitutional: Reports poor appetite, Denies anorexia, Denies chills, Denies fatigue, Denies fever, Denies lethargy, Denies malaise, Denies weight loss Eyes: denies blurred vision, denies pain Ears, nose, mouth and throat: Denies dysphagia, Denies headache, Denies nasal congestion, Denies nasal discharge, Denies sore throat, Denies vertigo Cardiovascular: Denies chest pain, Denies decreased exercise tolerance, Denies dyspnea on exertion, Denies edema, Denies leg edema, Denies lightheadedness, Denies palpitations, Denies shortness of breath, Denies syncope Respiratory: Denies cough, Denies cough with sputum, Denies dyspnea, Denies excessive sputum, Denies hemoptysis, Denies home oxygen, Denies wheezing Gastrointestinal: Reports abdominal pain, Reports bloating, Reports loss of appetite, denies nausea, Denies diarrhea, Denies vomiting Genitourinary: Denies dysuria, Denies hematuria, Denies urgency, Denies urinary frequency Musculoskeletal: Denies frequent falls, Denies gait dysfunction, Denies muscle weakness, Denies myalgias Integumentary: Denies pruritus, Denies rash, Denies wounds Neurological: Denies change in mentation, Denies confusion, Denies numbness, Denies seizures, Denies weakness Psychiatric: Denies anxiety, Denies depression Endocrine: Denies fatigue, Denies weight change Gen: This is a 39-year-old morbidly obese female. Patient is resting in bed and in no acute distress. HEENT: Head is atraumatic, normocephalic. Pupils equal, round. Sclerae is anicteric. NECK: Supple. No JVD. No lymphadenopathy. No thyromegaly. LUNGS: Clear to auscultation. No wheezes or rhonchi. No intercostal retractions. HEART: Regular rate and rhythm. No murmur. ABDOMEN: Soft. Bowel sounds are present. No masses. Left lower quadrant tenderness. EXTREMITIES: No pedal edema. No calf tenderness. NEUROLOGICAL: Patient is awake, alert and oriented x3. Cranial nerves 2 through 12 are grossly intact. - Labs CBC & Chem 7: 04/07/19 07:10 04/07/19 07:10 Labs: Abnormal Lab Results - Last 24 Hours (Table) 04/07/19 Range/Units 07:10 Chloride 108 H (98-107) mmol/L Glucose 101 H (74-99) mg/dL Microbiology - Last 24 Hours (Table) 04/05/19 14:30 Blood Culture - Preliminary Blood No Growth after 24 hours Assessment and Plan Plan: 1. Acute diverticulitis with sepsis, no perforation. Consult with Dr. Posey appreciated, Dr. Foster is now covering. Continue Zosyn, Toradol, morphine for pain control, Zofran as needed for nausea, IV fluids decreased to 100 mL per hour. Diet to full liquids. Blood culture has been obtained. Consult with Dr. Coleman appreciated. 2. Hypertension. Continue lisinopril 40 mg daily. 3. Hyperlipidemia. Continue atorvastatin 20 mg at bedtime. 4. Morbid obesity. 5. DVT prophylaxis. Heparin subcu. 6. GI prophylaxis. Protonix. 7. Rare tobacco use and dependence. 8. Marijuana use. Discharge plan: Return home Saturday or Impression and plan of care have been directed as dictated by the signing phys ician. Nola Connor nurse practitioner acting as scribe for signing physician.
[2019-04-07] MEDS: ATORVASTATIN 20 MG TAB PO SCH (20:55)
--- NOTE | 2019-04-07 23:13 | P.PN ---
Subjective Progress Note Date: 04/07/19 This is a 39-year-old female patient known to ID service as she was seen during a hospitalization in January 2019 for acute diverticulitis and was discharged home on IV Invanz. Patient did develop an ALLERGIC reaction. Patient complains of abdominal pain was sharp pain in the left lower quadrant that started last evening. She had several episodes of diarrhea. No fever or chills. No dysuria no upper abdominal pain. She reports one episode of nausea vomiting a small amount of loose stool. She denies any blood in her stools. She now has nausea. She denies any further vomiting. She denies diarrhea. Patient is scheduled for colonoscopy at the end of April with Dr. Foster. Regarding the IV antibiotics in January, patient states that she completed 13 day course but the last 10 days were discontinued. She did develop a rash and was taking Benadryl which was causing her blood pressure to go high along with headaches and her PCP recommended discontinuing the Benadryl. Antibiotics were done at home with homecare. Outpatient CAT scan on March 06 revealed interval resolution of the previously seen acute uncompensated sigmoid diverticulitis. Previously seen pneumoperitoneum also resolved. Bilateral slightly asymmetrical sacroiliitis can be seen inflammatory bowel disease or arthropathies. This is unlikely degenerative given the patient's age. Patient came into [facility] emergency center for evaluation. She was afebrile, blood pressure initially 156/104. WBC 18.3, hemoglobin 14.0, platelet count 218. BUN 14 creatinine 0.78. CO2 20 and chloride 109, blood sugar 107. Liver function tests within normal range. Lactic acid 1.0. Urinalysis negative. HCG not detected. CAT scan of the abdomen and pelvis reveals acute diverticulitis of the sigmoid colon with minimal perforation but without abscess formation. Fixed sliding hiatal hernia. Patient was started on Zosyn, pain medication and patient admitted to the [facility] floor and consults in place with general surgery as well. 04/07/2019 patient is now feeling somewhat better. Tolerated clear liquid diet without nausea or emesis. Severe pain and tenderness have improved but she is still not well. Objective - Vital Signs Vital signs: Vital Signs Temp 98.5 F 04/07/19 14:34 Pulse 66 04/07/19 14:34 Resp 16 04/07/19 14:34 BP 169/93 04/07/19 17:37 Pulse Ox 94 L 04/07/19 14:34 Intake & Output 04/07/19 04/07/19 04/08/19 06:59 18:59 06:59 Intake Total 450 Balance 450 Intake: Oral 450 Other: Voiding Method Toilet Toilet # Voids 1 2 # Bowel Movements 0 - Exam Gen: This is a 39-year-old morbidly obese female. Patient is resting in bed and appears to be comfortable and in no acute distress. HEENT: Head is atraumatic, normocephalic. Pupils equal, round. Sclerae is anicteric. NECK: Supple. No JVD. No lymphadenopathy. No thyromegaly. LUNGS: Clear to auscultation. No wheezes or rhonchi. No intercostal retr actions. HEART: Regular rate and rhythm. No murmur. ABDOMEN: Soft. Bowel sounds are present. No masses. Left lower quadrant tenderness. EXTREMITIES: No pedal edema. No calf tenderness. NEUROLOGICAL: Patient is awake, alert and oriented x3 - Labs CBC & Chem 7: 04/07/19 07:10 04/07/19 07:10 Labs: Abnormal Lab Results - Last 24 Hours (Table) 04/07/19 Range/Units 07:10 Chloride 108 H (98-107) mmol/L Glucose 101 H (74-99) mg/dL Microbiology - Last 24 Hours (Table) 04/05/19 14:30 Blood Culture - Preliminary Blood No Growth after 48 hours Laboratory Results WBC 9.3 k/uL (3.8-10.6) 04/07/19 07:10 RBC 4.05 m/uL (3.80-5.40) 04/07/19 07:10 Hgb 12.8 gm/dL (11.4-16.0) 04/07/19 07:10 Hct 36.3 % (34.0-46.0) 04/07/19 07:10 MCV 89.7 fL (80.0-100.0) 04/07/19 07:10 MCH 31.6 pg (25.0-35.0) 04/07/19 07:10 MCHC 35.3 g/dL (31.0-37.0) 04/07/19 07:10 RDW 12.8 % (11.5-15.5) 04/07/19 07:10 Plt Count 217 k/uL (150-450) 04/07/19 07:10 Neutrophils % 72 % 04/07/19 07:10 Lymphocytes % 17 % 04/07/19 07:10 Monocytes % 7 % 04/07/19 07:10 Eosinophils % 3 % 04/07/19 07:10 Basophils % 0 % 04/07/19 07:10 Neutrophils # 6.7 k/uL (1.3-7.7) 04/07/19 07:10 Lymphocytes # 1.5 k/uL (1.0-4.8) 04/07/19 07:10 Monocytes # 0.7 k/uL (0-1.0) 04/07/19 07:10 Eosinophils # 0.3 k/uL (0-0.7) 04/07/19 07:10 Basophils # 0.0 k/uL (0-0.2) 04/07/19 07:10 Sodium 140 mmol/L (137-145) 04/07/19 07:10 Potassium 4.4 mmol/L (3.5-5.1) 04/07/19 07:10 Chloride 108 mmol/L (98-107) H 04/07/19 07:10 Carbon Dioxide 25 mmol/L (22-30) 04/07/19 07:10 Anion Gap 7 mmol/L 04/07/19 07:10 BUN 7 mg/dL (7-17) 04/07/19 07:10 Creatinine 0.84 mg/dL (0.52-1.04) 04/07/19 07:10 Est GFR (CKD-EPI)AfAm >90 (>60 ml/min/1.73 sqM) 04/07/19 07:10 Est GFR (CKD-EPI)NonAf 88 (>60 ml/min/1.73 sqM) 04/07/19 07:10 Glucose 101 mg/dL (74-99) H 04/07/19 07:10 Plasma Lactic Acid Jack 1.0 mmol/L (0.7-2.0) 04/05/19 12:25 Calcium 8.8 mg/dL (8.4-10.2) 04/07/19 07:10 Total Bilirubin 0.7 mg/dL (0.2-1.3) 04/05/19 12:25 AST 16 U/L (14-36) 04/05/19 12:25 ALT 15 U/L (9-52) 04/05/19 12:25 Alkaline Phosphatase 60 U/L (38-126) 04/05/19 12:25 Total Protein 7.3 g/dL (6.3-8.2) 04/05/19 12:25 Albumin 4.0 g/dL (3.5-5.0) 04/05/19 12:25 Amylase 46 U/L (30-110) 04/05/19 12:25 Lipase 78 U/L (23-300) 04/05/19 12:25 Urine Color Yellow 04/05/19 12:47 Urine Appearance Clear (Clear) 04/05/19 12:47 Urine pH 5.5 (5.0-8.0) 04/05/19 12:47 Ur Specific [place] 1.020 (1.001-1.035) 04/05/19 12:47 Urine Protein Negative (Negative) 04/05/19 12:47 Urine Glucose (UA) Negative (Negative) 04/05/19 12:47 Urine Ketones Negative (Negative) 04/05/19 12:47 Urine Blood Negative (Negative) 04/05/19 12:47 Urine Nitrite Negative (Negative) 04/05/19 12:47 Urine Bilirubin Negative (Negative) 04/05/19 12:47 Urine Urobilinogen <2.0 mg/dL (<2.0) 04/05/19 12:47 Ur Leukocyte Esterase Negative (Negative) 04/05/19 12:47 Urine HCG, Qual Not Detected (Not Detectd) 04/05/19 12:47 Microbiology 04/05/19 14:30 Blood Blood Culture - Preliminary No Growth after 48 hours Assessment and Plan (1) Diverticulitis of colon with perforation Narrative/Plan: This 39-year-old woman has had onset of abdominal pain, left lower quadrant similar to what she had last time. She was treated with outpatient intravenous antibiotic therapy and almost completed her course of therapy but then started to have some toxicity from the antibiotic, with her resolution of fevers chills abdominal pain and eating a regular diet antibiotic therapy was discontinued. Now many weeks later has had another bout of abdominal pain with what appears to be a new episode of diverticulitis. She's been seen by surgery with no plans for surgical intervention as long as she improves. She reports she is improving and hospital with current antibiotic therapy of Zosyn which she is tolerating well. This will be continued for now. May require this in the outpatient setting depending on findings from cultures in the next short period of time. Patient will need endoscopy once she has had improvement of inflammation of her colon so the plans can be made as to a surgical intervention. If she worsens is evidence of free air or worsening symptoms may need to go to the operating room on a more urgent basis. Her severe leukocytosis starting to improve hopefully showing the clinical response to the current antibiotic therapy. However still having ongoing significant discomfort which is concerning. 04/07/2019 patient is to feel slightly better. Sitting upright pain is improved tolerating some clear liquids but still is having significant discomfort on exam. Leukocytosis is improving. We'll make arrangements for outpatient intravenous antibiotic therapy with Zosyn over she can tolerate this well. We'll need IV access with him at discharge. Hopefully Zosyn utilize via pump given the 4 times a day treatment. Current Visit: Yes Status: Acute Code(s): K57.20 - DVTRCLI OF LG INT W PERFORATION AND ABSCESS W/O BLEEDING SNOMED Code(s): 59244405 (2) Leukocytosis (leucocytosis) Current Visit: Yes Status: Acute Code(s): D72.829 - ELEVATED WHITE BLOOD CELL COUNT, UNSPECIFIED SNOMED Code(s): 859314837 (3) Morbid obesity due to excess calories Current Visit: Yes Status: Acute Code(s): E66.01 - MORBID (SEVERE) OBESITY DUE TO EXCESS CALORIES SNOMED Code(s): 070335993
[2019-04-08] MEDS: PIPERACILLIN-TAZOBACTAM 3.375 GM in SODIUM CHLORIDE 0.9% 100 ML IVPB SCH ×4 (00:48→23:34)
[2019-04-08] MEDS: SODIUM CHLORIDE 0.9% 1,000 ML IV SCH ×3 (02:33→21:50)
[2019-04-08] MEDS: LISINOPRIL 20 MG TAB PO SCH (08:20)
[2019-04-08] MEDS: PANTOPRAZOLE 40 MG/10 ML VIAL IVP SCH (08:20)
[2019-04-08] MEDS: HEPARIN SODIUM,PORCINE 5,000 UNIT/ML 1 ML VIAL SQ SCH ×2 (08:21→21:47)
[2019-04-08] MEDS: KETOROLAC 30 MG/ML 1 ML VIAL IVP PRN ×2 (09:30→17:47)
[2019-04-08 12:01] LABS: Glucose,Whole Blood 100 mg/dL (75-99)
--- NOTE | 2019-04-08 13:14 | P.PN ---
Subjective Progress Note Date: 04/08/19 Principal diagnosis: Recurrent diverticulitis Patient doing better today. Pain is about a 3-4. Tolerating diet. No fevers. Objective - Vital Signs Vital signs: Vital Signs Temp 97.8 F 04/08/19 07:00 Pulse 52 L 04/08/19 07:00 Resp 16 04/08/19 08:00 BP 135/88 04/08/19 07:00 Pulse Ox 99 04/08/19 07:00 Intake & Output 04/07/19 04/08/19 04/08/19 18:59 06:59 18:59 Intake Total 200 Balance 200 Intake: Oral 200 Other: Voiding Method Toilet Toilet Toilet # Voids 2 1 1 # Bowel Movements 0 - Exam Abdomen: Soft, nondistended, mild left lower quadrant tenderness - Labs CBC & Chem 7: 04/07/19 07:10 04/07/19 07:10 Labs: Abnormal Lab Results - Last 24 Hours (Table) 04/08/19 Range/Units 11:55 POC Glucose (mg/dL) 100 H (75-99) mg/dL Microbiology - Last 24 Hours (Table) 04/05/19 14:30 Blood Culture - Preliminary Blood No Growth after 48 hours Assessment and Plan (1) Diverticulitis of colon with perforation Narrative/Plan: Patient doing fairly well. Agree with plans for outpatient IV antibiotics. Possible discharge later today or tomorrow. Current Visit: Yes Status: Acute Code(s): K57.20 - DVTRCLI OF LG INT W PERFORATION AND ABSCESS W/O BLEEDING SNOMED Code(s): 51751274
[2019-04-08] MEDS ORDERED: HYDROCHLOROTHIAZIDE 12.5 MG CAP PO SCH (14:00)
[2019-04-08] MEDS: ONDANSETRON 4 MG/2 ML VIAL IVP PRN (17:47)
[2019-04-08] MEDS ORDERED: HYDROCHLOROTHIAZIDE 12.5 MG CAP PO ONE (17:50)
[2019-04-08] MEDS: ATORVASTATIN 20 MG TAB PO SCH (21:47)
[2019-04-09] MEDS: KETOROLAC 30 MG/ML 1 ML VIAL IVP PRN (01:24)
[2019-04-09 05:31] VITALS: BP 130/86; PULSE 68; RESP 20; TEMP 97.3
[2019-04-09] MEDS: HEPARIN SODIUM,PORCINE 5,000 UNIT/ML 1 ML VIAL SQ SCH (08:25)
[2019-04-09] MEDS: LISINOPRIL 20 MG TAB PO SCH (08:25)
[2019-04-09] MEDS: PIPERACILLIN-TAZOBACTAM 3.375 GM in SODIUM CHLORIDE 0.9% 100 ML IVPB SCH (08:26)
[2019-04-09] MEDS: SODIUM CHLORIDE 0.9% 1,000 ML IV SCH (08:26)
[2019-04-09] MEDS ORDERED: HYDROCHLOROTHIAZIDE 25 MG TAB PO SCH (09:00)
[2019-04-09] MEDS: PANTOPRAZOLE 40 MG/10 ML VIAL IVP SCH (09:08)
--- NOTE | 2019-04-09 14:35 | P.DS ---
Providers Date of admission: 04/05/19 16:03 Expected date of discharge: 04/09/19 Attending physician: Da Bynum MD Consults: 04/05/19 15:02 Consult Physician Routine Consulting Provider: Herve Foster Consult Reason/Comments: Diverticulitis with perforation Do you want consulting provider notified?: Yes 04/06/19 12:56 Consult Physician Routine Consulting Provider: Williams Coleman Consult Reason/Comments: diverticulitis Do you want consulting provider notified?: Yes Primary care physician: Corey Mcdaniels [facility] Course: This is a 39-year-old female patient of Dr. Mcdaniels with past medical history of hypertension, hyperlipidemia, diverticulitis with perforation under the care of Dr. Foster and Dr. Coleman in the past requiring IV antibiotics with Invanz for 3 weeks in January. Patient complains of abdominal pain was sharp pain in the left lower quadrant that started last evening. She had several episodes of diarrhea. No fever or chills. No dysuria no upper abdominal pain. She reports one episode of nausea vomiting a small amount of loose stool. She denies any blood in her stools. She now has nausea. She denies any further vomiting. She denies diarrhea. n Patient is scheduled for colonoscopy at the end of April with Dr. Foster. Regarding the IV antibiotics in January, patient states that she completed 13 day course but the last 10 days were discontinued. She did develop a rash and was taking Benadryl which was causing her blood pressure to go high along with headaches and her PCP recommended discontinuing the Benadryl. Antibiotics were done at home with homecare. Outpatient CAT scan on March 06 revealed interval resolution of the previously seen acute uncompensated sigmoid diverticulitis. Previously seen pneumoperitoneum also resolved. Bilateral slightly asymmetrical sacroiliitis can be seen inflammatory bowel disease or arthropathies. This is unlikely degenerative given the patient's age. Patient came into [facility] emergency center for evaluation. She was afebrile, blood pressure initially 156/104. WBC 18.3, hemoglobin 14.0, platelet count 218. BUN 14 creatinine 0.78. CO2 20 and chloride 109, blood sugar 107. Liver function tests within normal range. Lactic acid 1.0. Urinalysis negative. HCG not detected. CAT scan of the abdomen and pelvis reveals acute diverticulitis of the sigmoid colon with minimal perforation but without abscess formation. Fixed sliding hiatal hernia. Patient was started on Zosyn, pain medication and patient admitted to the [facility] floor and consults in place with general surgery and Dr. Coleman. 04/07: Patient has been evaluated by Dr. Coleman with continuation of Zosyn. Anticipate need for IV antibiotics at the time of discharge. Patient may require surgical intervention during this hospitalization if pain is not improving. Fortunately, patient states that her pain is better today running 4- 5. Toradol is helping with pain. She states she had sweats during the night but no documented fever. She had nausea this morning but this has resolved. Patient states that Dr. Sánchez wanted to advance her diet but she wanted to stand clear liquids. At this time, she is willing to try full liquids which will be started. She has been afebrile, heart rate 62, blood pressure 123/85, pulse ox 97% on room air. CBC is normal, chloride 108, creatinine 0.84. Blood culture no growth at 48 hours. 04/08: Midline has been ordered and Dr. Coleman is planning for 3 weeks of IV Zosyn at home 4 times daily. Patient has been afebrile, heart rate 52, blood pressure 135/88 and pulse ox 99% on room air. Patient will be discharged home today in stable condition on once all arrangements are completed. Discharge was delayed until the morning of April 09 due to insurance authorization. Discharge diagnoses: 1. Acute diverticulitis with sepsis, no perforation. 2. Hypertension. 3. Hyperlipidemia. 4. Morbid obesity. 5. Rare tobacco use and dependence. 6. Marijuana use. Discharge plan: Return home with [facility] home care and [facility] Impression and plan of care have been directed as dictated by the signing physician. Nola Connor nurse practitioner acting as scribe for signing physician. Patient Condition at Discharge: Good Plan - Discharge Summary Discharge Rx Participant: Yes New Discharge Prescriptions: New Piperacillin-Tazobactam [Zosyn] 3.375 gm IVPB Q6H #84 bag Hydrochlorothiazide [Hydrodiuril] 12.5 mg PO DAILY #30 cap Continue Atorvastatin [Lipitor] 20 mg PO HS Lisinopril [Zestril] 40 mg PO DAILY #30 tab Discharge Medication List Atorvastatin [Lipitor] 20 mg PO HS 01/17/19 [History] Lisinopril [Zestril] 40 mg PO DAILY #30 tab 01/20/19 [Rx] Piperacillin-Tazobactam [Zosyn] 3.375 gm IVPB Q6H #84 bag 04/07/19 [Rx] Hydrochlorothiazide [Hydrodiuril] 12.5 mg PO DAILY #30 cap 04/08/19 [Rx] Follow up Appointment(s)/Referral(s): Herve Foster MD [Medical Doctor] - 04/23/19 9:00 am Williams Coleman MD [STAFF PHYSICIAN] - 04/29/19 9:30 am [facility], [NON-STAFF] - [facility], [REFERRING] - Corey Mcdaniels MD [Primary Care Provider] - 04/15/19 3:00 pm (with ENERGY TRADING ANALYST Rashaun Alfonso at the [address] [phone]) Ambulatory/Diagnostic Orders: Basic Metabolic Panel [LAB.AMB] Location: None Selected Complete Blood Count w/diff [LAB.AMB] Location: None Selected Patient Instructions/Handouts: Diverticulitis (DC), Diverticulitis Diet (DC), Perforated Bowel (DC) Activity/Diet/Wound Care/Special Instructions: *SOFT, DIVERTICULITIS DIET *ACTIVITY LIMITED UNTIL FOLLOW-UP Discharge Disposition: HOME WITH HOME HEALTH SERVICES
== END 2019-04-09 12:18 | disposition home health service (06) | DRG 872 ==
LOC: EC 11:31 → 4MS4W 16:03
PROVIDERS: ADMIT Internal Medicine; ATTEND Internal Medicine
DX: A41.9 Sepsis, unspecified organism (principal); K57.32 Diverticulitis of large intestine without perforation or abscess without bleeding; Z68.42 Body mass index [BMI] 45.0-49.9, adult; E66.01 Morbid (severe) obesity due to excess calories; E78.5 Hyperlipidemia, unspecified; F17.210 Nicotine dependence, cigarettes, uncomplicated; F90.9 Attention-deficit hyperactivity disorder, unspecified type; I10 Essential (primary) hypertension; K44.9 Diaphragmatic hernia without obstruction or gangrene; K62.89 Other specified diseases of anus and rectum; M46.1 Sacroiliitis, not elsewhere classified; Z79.899 Other long term (current) drug therapy; Z80.8 Family history of malignant neoplasm of other organs or systems; Z82.49 Family history of ischemic heart disease and other diseases of the circulatory system; Z88.5 Allergy status to narcotic agent
CPT/HCPCS: 36410; 36415; 74177; 76937; 80048; 80053; 81003; 81025; 82150; 83605; 83690; 85025; 87040; 96365; 96375; 99285

== ENCOUNTER 2019-04-13 21:06 | Emergency (ER) | payer OTHER ==
[2019-04-13 21:18] VITALS: BP 159/93; PULSE 73; RESP 18; TEMP 98
--- NOTE | 2019-04-13 22:10 | ED ---
General Adult HPI - General Chief complaint: Recheck/Abnormal Lab/Rx Stated complaint: Mid line issues Time Seen by Provider: 04/13/19 21:34 Source: patient, RN notes reviewed, old records reviewed Mode of arrival: ambulatory Limitations: no limitations - History of Present Illness Initial comments: Patient is a 39-year-old female presents emergency department today for concerns for a blocked midline. Patient reports she had a midline changed by a visiting nurse today. She is receiving IV Zosyn for diverticulitis complications. Patient reports that the midline dressing was changed, and flushed after visiting nurse. When she went to start her medications today she noticed that with back up. Patient denies any other complaints at this time. - Related Data Home Medications Medication Instructions Recorded Confirmed Atorvastatin [Lipitor] 20 mg PO HS 01/17/19 04/13/19 Previous Rx's Medication Instructions Recorded Lisinopril [Zestril] 40 mg PO DAILY #30 tab 01/20/19 Piperacillin-Tazobactam [Zosyn] 3.375 gm IVPB Q6H #84 bag 04/07/19 Hydrochlorothiazide [Hydrodiuril] 12.5 mg PO DAILY #30 cap 04/08/19 Allergies Allergy/AdvReac Type Severity Reaction Status Date / Time codeine Allergy Itching Verified 04/13/19 21:26 ertapenem Allergy Rash/Hives Verified 04/13/19 21:26 Review of Systems ROS Statement: Those systems with pertinent positive or pertinent negative responses have been documented in the HPI. ROS Other: All systems not noted in ROS Statement are negative. Past Medical History Past Medical History: Hyperlipidemia, Hypertension Additional Past Medical History / Comment(s): diverticulitis perforated bowel no surgery. History of Any Multi-Drug Resistant Organisms: None Reported Past Surgical History: Section, Hernia Repair Additional Past Surgical History / Comment(s): x3 Past Anesthesia/Blood Transfusion Reactions: No Reported Reaction Past Psychological History: ADD/ADHD Smoking Status: Light tobacco smoker Past Alcohol Use History: Occasional Past Drug Use History: Marijuana - Past Family History Mother Family Medical History: AFIB Additional Family Medical History / Comment(s): Mother is alive with past medical history of coronary artery disease. Father Additional Family Medical History / Comment(s): Father is alive with history of coronary artery disease and skin cancer. Patient does not have any siblings. Patient has 4 children with no major medical problems. General Exam - General Exam Comments Initial Comments: 39-year-old female. No significant distress. Limitations: no limitations General appearance: alert, in no apparent distress Head exam: Present: atraumatic, normocephalic, normal inspection Eye exam: Present: normal appearance, PERRL, EOMI. Absent: scleral icterus, conjunctival injection, periorbital swelling ENT exam: Present: normal exam, mucous membranes moist Neck exam: Present: normal inspection. Absent: tenderness, meningismus, lymphadenopathy Respiratory exam: Present: normal lung sounds bilaterally. Absent: respiratory distress, wheezes, rales, rhonchi, stridor Cardiovascular Exam: Present: regular rate, normal rhythm, normal heart sounds. Absent: systolic murmur, diastolic murmur, rubs, gallop, clicks Extremities exam: Present: normal inspection, full ROM, normal capillary refill, other (Patient has midline and left upper arm. This was flushed by nurse and is now functioning. Zosyn is not running.). Absent: tenderness, pedal edema, joint swelling, calf tenderness Back exam: Present: normal inspection, full ROM Neurological exam: Present: alert, oriented X3, CN II-XII intact Psychiatric exam: Present: normal affect, normal mood Skin exam: Present: warm, dry, intact, normal color. Absent: rash Course Vital Signs 04/13/19 21:16 Temperature 98.0 F Pulse Rate 73 Respiratory 18 Rate Blood Pressure 159/93 O2 Sat by Pulse 99 Oximetry Medical Decision Making - Medical Decision Making 31-year-old female presents for concern for midline malfunction. Patient's midline was then adjusted by nursing, and then flushed and functioning properly. Patient had Zosyn and was running in his drink well. Stable for discharge home. Discussed monitoring for any further complications from midline. Disposition Clinical Impression: IV infusion line dysfunction Disposition: HOME SELF-CARE Condition: Good Instructions (If sedation given, give patient instructions): How to Care for Your Midline Catheter (ED) Additional Instructions: Continue to use the midline medications as discussed. Continue to monitor for is any further issues with IV infusion or irritation to the site. Return to ED if any alarming signs or symptoms occur. Is patient prescribed a controlled substance at d/c from ED?: No Referrals: Corey Mcdaniels MD [Primary Care Provider] - 1-2 days Time of Disposition: 22:10
== END 2019-04-13 22:15 | disposition home or self-care (01) ==
LOC: EC 21:06
DX: T82.598A Other mechanical complication of other cardiac and vascular devices and implants, initial encounter (principal); E78.5 Hyperlipidemia, unspecified; F17.200 Nicotine dependence, unspecified, uncomplicated; Z79.899 Other long term (current) drug therapy; Z88.1 Allergy status to other antibiotic agents; Z88.5 Allergy status to narcotic agent
CPT/HCPCS: 99283

== ENCOUNTER 2019-04-14 18:17 | Emergency (ER) | payer OTHER ==
[2019-04-14 18:40] VITALS: BP 151/101; PULSE 73; RESP 20; TEMP 98
--- NOTE | 2019-04-14 19:28 | ED ---
General Adult HPI - General Chief complaint: Recheck/Abnormal Lab/Rx Stated complaint: IV coming out Time Seen by Provider: 04/14/19 18:47 Source: patient, RN notes reviewed, old records reviewed Mode of arrival: ambulatory Limitations: no limitations - History of Present Illness Initial comments: This Patient is a pleasant 39-year-old female, she presents emergency department today for evaluation for her midline coming out being kinked. She was here yesterday for similar problem. It was adjusted by nursing staff that time and was flushing well. Patient reports she completed her infusion of Zosyn, and when she went to flush her heparin after using the Zosyn she noticed there was a kink in it. Patient states that she does have an appointment tomorrow with her primary care doctor. - Related Data Home Medications Medication Instructions Recorded Confirmed Atorvastatin [Lipitor] 20 mg PO HS 01/17/19 04/13/19 Previous Rx's Medication Instructions Recorded Lisinopril [Zestril] 40 mg PO DAILY #30 tab 01/20/19 Piperacillin-Tazobactam [Zosyn] 3.375 gm IVPB Q6H #84 bag 04/07/19 Hydrochlorothiazide [Hydrodiuril] 12.5 mg PO DAILY #30 cap 04/08/19 Allergies Allergy/AdvReac Type Severity Reaction Status Date / Time codeine Allergy Itching Verified 04/14/19 18:40 ertapenem Allergy Rash/Hives Verified 04/14/19 18:40 Review of Systems ROS Statement: Those systems with pertinent positive or pertinent negative responses have been documented in the HPI. ROS Other: All systems not noted in ROS Statement are negative. Past Medical History Past Medical History: Hyperlipidemia, Hypertension Additional Past Medical History / Comment(s): diverticulitis perforated bowel no surgery. History of Any Multi-Drug Resistant Organisms: None Reported Past Surgical History: Section, Hernia Repair Additional Past Surgical History / Comment(s): x3 Past Anesthesia/Blood Transfusion Reactions: No Reported Reaction Past Psychological History: ADD/ADHD Smoking Status: Light tobacco smoker Past Alcohol Use History: Occasional Past Drug Use History: Marijuana - Past Family History Mother Family Medical History: AFIB Additional Family Medical History / Comment(s): Mother is alive with past medical history of coronary artery disease. Father Additional Family Medical History / Comment(s): Father is alive with history of coronary artery disease and skin cancer. Patient does not have any siblings. Patient has 4 children with no major medical problems. General Exam - General Exam Comments Initial Comments: 31-year-old female. Alert and oriented. No distress. Limitations: no limitations General appearance: alert, in no apparent distress Head exam: Present: atraumatic, normocephalic, normal inspection Eye exam: Present: normal appearance, PERRL, EOMI. Absent: scleral icterus, conjunctival injection, periorbital swelling ENT exam: Present: normal exam, mucous membranes moist Neck exam: Present: normal inspection. Absent: tenderness, meningismus, l ymphadenopathy Respiratory exam: Present: normal lung sounds bilaterally. Absent: respiratory distress, wheezes, rales, rhonchi, stridor Cardiovascular Exam: Present: regular rate, normal rhythm, normal heart sounds. Absent: systolic murmur, diastolic murmur, rubs, gallop, clicks GI/Abdominal exam: Present: soft, normal bowel sounds. Absent: distended, tenderness, guarding, rebound, rigid Extremities exam: Present: normal inspection, full ROM, normal capillary refill, other (Patient has a midline in the left upper arm. The site of the IV shows that it pulled out somewhat and kinked and twisted.). Absent: tenderness, pedal edema, joint swelling, calf tenderness Back exam: Present: normal inspection Neurological exam: Present: alert, oriented X3, CN II-XII intact Psychiatric exam: Present: normal affect, normal mood Skin exam: Present: warm, dry, intact, normal color. Absent: rash Course Vital Signs 04/14/19 18:37 Temperature 98.0 F Pulse Rate 73 Respiratory 20 Rate Blood Pressure 151/101 O2 Sat by Pulse 99 Oximetry Medical Decision Making - Medical Decision Making 31-year-old female presents for midline catheter malfunction. Patient's IV was slightly pulled out and kinked and twisted. With careful removal of Tegaderm, I was able to untwist the IV site and with a kinking and was able to advance the catheter easily. Patient's IV was then flushed without difficulty. Then a new PICC line dressing was placed by nurse. I discussed that the integrity of this mid line will not likely last throughout the next 3 weeks of her IV antibiotics. I discussed the Patient needs to likely get a new one. At this time it is functioning well enough to finish her antibiotics for today. I discussed that she needs follow-up with her primary care doctor as well as infectious disease doctor to possibly schedule for a new midline placement. Patient is agreeable to this plan. All questions were answered. Disposition Clinical Impression: IV infusion line dysfunction Disposition: HOME SELF-CARE Condition: Stable Instructions (If sedation given, give patient instructions): How to Care for Your Midline Catheter (ED) Additional Instructions: Patient should follow-up with Dr. Coleman and her primary care doctor to likely scheduled a midline placement. Return to the emergency department if any alarming signs or symptoms occur. Is patient prescribed a controlled substance at d/c from ED?: No Referrals: Corey Mcdaniels MD [Primary Care Provider] - 1-2 days Williams Coleman MD [STAFF PHYSICIAN] - 1-2 days Time of Disposition: 19:27
== END 2019-04-14 19:33 | disposition home or self-care (01) ==
LOC: EC 18:17
DX: T82.898A Other specified complication of vascular prosthetic devices, implants and grafts, initial encounter (principal); E78.5 Hyperlipidemia, unspecified; I10 Essential (primary) hypertension; F17.210 Nicotine dependence, cigarettes, uncomplicated; Z79.899 Other long term (current) drug therapy; Z88.5 Allergy status to narcotic agent; Z88.8 Allergy status to other drugs, medicaments and biological substances; Z87.19 Personal history of other diseases of the digestive system
CPT/HCPCS: 99283

== ENCOUNTER → 2019-04-15 | Day surgery (SDC) | payer OTHER | LOC: CATHCVL 10:14 | PROVIDERS: ATTEND Internal Medicine Infectious Disease | DX: K57.00 Diverticulitis of small intestine with perforation and abscess without bleeding (principal) | CPT/HCPCS: 36410; 76937; C1751 ==

== ENCOUNTER 2019-04-16 12:11 | Emergency (ER) | payer OTHER ==
--- NOTE | 2019-04-16 12:51 | ED ---
General Adult HPI - General Chief complaint: Recheck/Abnormal Lab/Rx Stated complaint: Mid line issue Time Seen by Provider: 04/16/19 12:42 Source: patient Mode of arrival: ambulatory Limitations: no limitations - History of Present Illness Initial comments: 39 yoF presenting with midline malfunction. Patient is currently on Zosyn q6hr until 04/29 for perforated diverticulitis. She has had 3 midlines now, all of which have malfunctioned. Patient has been unable to give herself her abx today due to this. She denies any pain or swelling to the arm. Denies any other symptoms. - Related Data Home Medications Medication Instructions Recorded Confirmed Atorvastatin [Lipitor] 20 mg PO HS 01/17/19 04/16/19 Piperacillin-Tazobactam [Zosyn] 3.375 gm IVPB Q6H 04/16/19 04/16/19 Previous Rx's Medication Instructions Recorded Lisinopril [Zestril] 40 mg PO DAILY #30 tab 01/20/19 Hydrochlorothiazide [Hydrodiuril] 12.5 mg PO DAILY #30 cap 04/08/19 Allergies Allergy/AdvReac Type Severity Reaction Status Date / Time codeine Allergy Itching Verified 04/16/19 12:51 ertapenem Allergy Rash/Hives Verified 04/16/19 12:51 Review of Systems ROS Statement: Those systems with pertinent positive or pertinent negative responses have been documented in the HPI. ROS Other: All systems not noted in ROS Statement are negative. Constitutional: Denies: fever, chills Respiratory: Denies: cough Cardiovascular: Denies: chest pain, dyspnea on exertion Gastrointestinal: Denies: abdominal pain, nausea Genitourinary: Denies: urgency Neurological: Denies: headache, weakness Past Medical History Past Medical History: Hyperlipidemia, Hypertension Additional Past Medical History / Comment(s): diverticulitis perforated bowel no surgery. History of Any Multi-Drug Resistant Organisms: None Reported Past Surgical History: Section, Hernia Repair Additional Past Surgical History / Comment(s): x3 Past Anesthesia/Blood Transfusion Reactions: No Reported Reaction Past Psychological History: ADD/ADHD Smoking Status: Light tobacco smoker Past Alcohol Use History: Occasional Past Drug Use History: Marijuana - Past Family History Mother Family Medical History: AFIB Additional Family Medical History / Comment(s): Mother is alive with past medical history of coronary artery disease. Father Additional Family Medical History / Comment(s): Father is alive with history of coronary artery disease and skin cancer. Patient does not have any siblings. Patient has 4 children with no major medical problems. General Exam Limitations: no limitations General appearance: alert, in no apparent distress Head exam: Present: atraumatic, normocephalic Eye exam: Present: normal appearance Respiratory exam: Present: normal lung sounds bilaterally. Absent: respiratory distress Cardiovascular Exam: Present: regular rate, normal rhythm GI/Abdominal exam: Present: soft. Absent: distended, tenderness Extremities exam: Present: other (No swelling or erythema around midline site. 2+ radial pulse on right. Arm well perfused) Course Vital Signs 04/16/19 04/16/19 04/16/19 12:18 18:11 19:18 Temperature 98.1 F 98.3 F 98.1 F Pulse Rate 66 82 74 Respiratory 16 16 18 Rate Blood Pressure 130/84 150/91 152/95 O2 Sat by Pulse 99 97 98 Oximetry Medical Decision Making - Medical Decision Making 39 yoF presenting with midline malfunction. Patient's line was unable to be flushed. Alteplase was used per protocol without resolution. I initially spoke with the admitting physician about admitting the patient overnight for new line placement and IV abx infusion. He declined and recommended sending the patient home with her IV and to follow up outpatient for new line placement, The patient was informed she would need to return tot he ED for new IV placement if she cannot get a new midline in the next 72 hours. She verbalized understanding. Disposition Clinical Impression: Displacement of peripheral intravenous catheter Disposition: HOME SELF-CARE Condition: Good Additional Instructions: Return to ED if the IV stops working. Return to change the IV if you cannot get a new midline in the next [address] coleman office tomorrow. Is patient prescribed a controlled substance at d/c from ED?: No Referrals: Corey Mcdaniels MD [Primary Care Provider] - 1-2 days Williams Coleman MD [STAFF PHYSICIAN] - 1-2 days
[2019-04-16] MEDS ORDERED: ALTEPLASE 2 MG VIAL (CATHFLO) IV STA (13:17)
[2019-04-16 19:20] VITALS: BP 152/95; PULSE 74; RESP 18; TEMP 98.1
== END 2019-04-16 19:20 | disposition home or self-care (01) ==
LOC: EC 12:11
DX: T82.898A Other specified complication of vascular prosthetic devices, implants and grafts, initial encounter (principal); K57.92 Diverticulitis of intestine, part unspecified, without perforation or abscess without bleeding; Z79.899 Other long term (current) drug therapy; Z88.5 Allergy status to narcotic agent; Z88.8 Allergy status to other drugs, medicaments and biological substances; E78.5 Hyperlipidemia, unspecified
CPT/HCPCS: 99283; J2997

== ENCOUNTER 2019-05-04 11:34 | Day surgery (SDC) | payer OTHER ==
[2019-05-01 08:35] VITALS: BMI 46.5
[~2019-05-04 11:34] MED LIST: LACTATED RINGERS 1,000 ML IV SCH
[2019-05-04 11:47] VITALS: RESP 16; TEMP 97.5
[2019-05-04] MEDS ORDERED: LIDOCAINE 1% 20 ML VIAL (10MG/ML) FOR IV START INTRADERMA ONE (11:57)
[2019-05-04] MEDS ORDERED: PROPOFOL 10 MG/ML 20 ML VIAL IV ONE (12:59)
[2019-05-04] MEDS ORDERED: LIDOCAINE 1% INJ 10MG/ML (20 ML MDV) ONE (12:59)
--- NOTE | 2019-05-04 13:12 | P.PCN ---
Date of Procedure: 05/04/19 Procedure(s) Performed: PREOPERATIVE DIAGNOSIS: Change in bowel habits POSTOPERATIVE DIAGNOSIS: Extensive diverticulosis PROCEDURE: Colonoscopy ANESTHESIA: MAC SURGEON: Herve Foster M.D. SPECIMENS: None ENDOSCOPIC PROCEDURE: The patient was placed on the endoscopy table in the left decubitus position. The Olympus colonoscope was inserted into the anus and passed under direct visualization to the base of the cecum. The appendiceal orifice was visualized. From that point the scope was slowly withdrawn inspecting all surfaces carefully. There were no neoplastic inflammatory or polypoid lesions throughout the cecum, ascending, transverse, descending, sigmoid and rectum. There was extensive diverticulosis noted throughout the colon. Digital rectal examination was normal. The patient was taken to the recovery room in stable condition per anesthesia guidelines. RECOMMENDATIONS: Increase fiber. Will discuss option for elective sigmoid resection.
[2019-05-04] MEDS ORDERED: hydrALAZINE HCL 20 MG/ML 1 ML VIAL IV ONE (13:35)
[2019-05-04 14:12] VITALS: BP 143/87; PULSE 87
== END 2019-05-04 14:24 | disposition home or self-care (01) ==
LOC: ORWHC2ENDO 11:34
PROVIDERS: ATTEND Surgery
DX: K57.30 Diverticulosis of large intestine without perforation or abscess without bleeding (principal); I10 Essential (primary) hypertension; E78.5 Hyperlipidemia, unspecified; E78.00 Pure hypercholesterolemia, unspecified; E66.01 Morbid (severe) obesity due to excess calories; Z68.42 Body mass index [BMI] 45.0-49.9, adult; Z87.891 Personal history of nicotine dependence; Z82.49 Family history of ischemic heart disease and other diseases of the circulatory system; Z79.899 Other long term (current) drug therapy; Z88.1 Allergy status to other antibiotic agents; Z88.5 Allergy status to narcotic agent
CPT/HCPCS: 81025; 45378; J0360; J2001; J2704

== ENCOUNTER 2019-06-20 09:53 | Emergency (ER) | payer OTHER ==
--- NOTE | 2019-06-20 11:18 | ED ---
Skin/Abscess/FB HPI - General Chief complaint: Skin/Abscess/Foreign Body Stated complaint: Swallowed a tooth pick Time Seen by Provider: 06/20/19 10:15 Source: patient, RN notes reviewed, old records reviewed Mode of arrival: ambulatory Limitations: no limitations - History of Present Illness Initial comments: Maribel is a 31-year-old female. She presented today for evaluation for concern for approximately swallowing a toothpick. Patient reports that she was eating a cocktail [place] and swallowed half of a piece of a wooden toothpick. She reports this is over 12 hours ago. She is a drink since that time. Denies any changes in her bowel habits. She was concerned with this with a known history of diverticulosis. Patient states that she has no abdominal pain and denies difficulty of swallowing. - Related Data Home Medications Medication Instructions Recorded Confirmed Atorvastatin [Lipitor] 20 mg PO HS 01/17/19 05/04/19 Previous Rx's Medication Instructions Recorded Lisinopril [Zestril] 40 mg PO DAILY #30 tab 01/20/19 Hydrochlorothiazide [Hydrodiuril] 12.5 mg PO DAILY #30 cap 04/08/19 Docusate [Colace] 100 mg PO DAILY #10 capsule 06/20/19 Allergies Allergy/AdvReac Type Severity Reaction Status Date / Time codeine Allergy Itching Verified 06/20/19 10:11 ertapenem Allergy Rash/Hives Verified 06/20/19 10:11 Review of Systems ROS Statement: Those systems with pertinent positive or pertinent negative responses have been documented in the HPI. ROS Other: All systems not noted in ROS Statement are negative. Past Medical History Past Medical History: GERD/Reflux, Hyperlipidemia, Hypertension, Sleep Apnea/CPAP/BIPAP Additional Past Medical History / Comment(s): diverticulitis perforated bowel no surgery. (states pin hole)., hx of midline IV access -states her body rejected it . History of Any Multi-Drug Resistant Organisms: None Reported Past Surgical History: Section, Hernia Repair Additional Past Surgical History / Comment(s): x3 Past Anesthesia/Blood Transfusion Reactions: No Reported Reaction, Motion Sickness Past Psychological History: ADD/ADHD Smoking Status: Former smoker Past Alcohol Use History: None Reported Past Drug Use History: Marijuana - Past Family History Mother Family Medical History: AFIB Additional Family Medical History / Comment(s): coronary artery disease. Father Family Medical History: Cancer Additional Family Medical History / Comment(s): coronary artery disease and skin cancer. General Exam - General Exam Comments Initial Comments: 31-year-old female. Alert and oriented. No distress. Limitations: no limitations General appearance: alert, in no apparent distress Head exam: Present: atraumatic, normocephalic, normal inspection Eye exam: Present: normal appearance, PERRL, EOMI. Absent: scleral icterus, conjunctival injection, periorbital swelling ENT exam: Present: normal exam, mucous membranes moist Neck exam: Present: normal inspection. Absent: tenderness, meningismus, lymphadenopathy Respiratory exam: Present: normal lung sounds bilaterally. Absent: respiratory distress, wheezes, rales, rhonchi, stridor Cardiovascular Exam: Present: regular rate, normal rhythm, normal heart sounds. Absent: systolic murmur, diastolic murmur, rubs, gallop, clicks GI/Abdominal exam: Present: soft, normal bowel sounds. Absent: distended, tenderness, guarding, rebound, rigid Back exam: Present: normal inspection Neurological exam: Present: alert, oriented X3, CN II-XII intact Psychiatric exam: Present: normal affect, normal mood Skin exam: Present: warm, dry, intact, normal color. Absent: rash Course Vital Signs 06/20/19 10:09 Temperature 98.3 F Pulse Rate 89 Respiratory 18 Rate Blood Pressure 217/113 O2 Sat by Pulse 100 Oximetry Medical Decision Making - Medical Decision Making 31-year-old female presents today for swelling toothpick. Patient was concerned that this could call problems in the future. She denies any abdominal pain at this time. Patient's x-ray showed no signs of perforation. Patient has been tolerating 80 and drinking well. She has no other signs of distress. Discussed close follow-up with primary care doctor if she would have any abdominal pain or other symptoms to return probably to ER. Patient is agreeable with this plan. I'll caution states her. - Radiology Data Radiology results: report reviewed Patient's chest x-ray is negative for any acute process. KUB is unremarkable. No signs of free air. Disposition Clinical Impression: Swallowed foreign body Disposition: HOME SELF-CARE Condition: Good Instructions (If sedation given, give patient instructions): Foreign Body Ingestion (ED) Additional Instructions: Patient advised to follow-up with your primary care physician. Encourage bowel movements with a heating plain fiber and stool softeners. There is any signs of abdominal pain and fevers return to the ER for reevaluation. Prescriptions: Docusate [Colace] 100 mg PO DAILY #10 capsule Is patient prescribed a controlled substance at d/c from ED?: No Referrals: Corey Mcdaniels MD [Primary Care Provider] - 1-2 days Time of Disposition: 11:32
--- NOTE | 2019-06-20 11:23 | XR ---
EXAMINATION TYPE: XR chest 2V DATE OF EXAM: 06/20/2019 HISTORY: swallowed toothpick . REFERENCE: NONE. FINDINGS: The lungs are clear. Pleural spaces are IMPRESSION: NO ACTIVE INTRATHORACIC DISEASE.
--- NOTE | 2019-06-20 11:26 | XR ---
EXAMINATION TYPE: XR KUB , 2 VIEWS DATE OF EXAM ORDERED: 06/20/2019 HISTORY: swallowed toothpick . COMPARISON: None. FINDINGS: The lung bases are clear. Within the abdomen, the abdominal gas pattern is normal. There is no evidence of obstruction or free air. Tubal ligation clips project over the pelvis. No other radiopaque foreign body is seen. No unusu al calcifications are seen. IMPRESSION: NO ACUTE INTRA-ABDOMINAL ABNORMALITY.
[2019-06-20 12:21] VITALS: BP 153/99; PULSE 79; RESP 16; TEMP 97.8
== END 2019-06-20 12:20 | disposition home or self-care (01) ==
LOC: EC 09:53
DX: T18.9XXA Foreign body of alimentary tract, part unspecified, initial encounter (principal); E78.5 Hyperlipidemia, unspecified; I10 Essential (primary) hypertension; G47.30 Sleep apnea, unspecified; Z79.899 Other long term (current) drug therapy; Z88.5 Allergy status to narcotic agent; Z88.1 Allergy status to other antibiotic agents; Z87.891 Personal history of nicotine dependence; Z99.89 Dependence on other enabling machines and devices
CPT/HCPCS: 71046; 74018; 99284

== ENCOUNTER 2020-07-29 16:59 | Emergency (ER) | payer OTHER ==
[2020-07-29 17:05] VITALS: RESP 18
[2020-07-29] MEDS ORDERED: ACETAMINOPHEN TAB 500 MG TAB PO STA (17:17)
--- NOTE | 2020-07-29 17:17 | ED ---
Fever HPI - General Chief Complaint: Fever Stated Complaint: vomiting/headache/fever Time Seen by Provider: 07/29/20 17:10 Source: patient Mode of arrival: ambulatory Limitations: no limitations - History of Present Illness Initial Comments: 40-year-old female presenting to the emergency department with a chief complaint of fever. Patient reports over last today she developed myalgias, generalized fatigue, headache, nausea with 8 episodes of nonbloody is nonbloody vomiting. Denies any constipation diarrhea. Patient also reports a nonproductive dry cough. Denies chest pain shortness of breath. States she does not smoke tobacco but does smoke marijuana. Patient denies taking any antipyretics to control the fever. She denies any abdominal back pain. Denies any urinary or vaginal symptoms. Reports possible exposure to c covid-19 - Related Data Home Medications Medication Instructions Recorded Confirmed lisinopriL [Zestril] 20 mg PO DAILY 07/29/20 07/29/20 Previous Rx's Medication Instructions Recorded Acetaminophen Tab [Tylenol Tab] 500 mg PO Q6H PRN #30 tablet 07/29/20 Ibuprofen [Motrin] 800 mg PO Q6HR #30 tab 07/29/20 Ondansetron Odt [Zofran Odt] 4 mg PO Q8HR PRN #14 tab 07/29/20 Allergies Allergy/AdvReac Type Severity Reaction Status Date / Time codeine Allergy Itching Verified 07/29/20 18:27 ertapenem Allergy Rash/Hives Verified 07/29/20 18:27 Review of Systems ROS Statement: Those systems with pertinent positive or pertinent negative responses have been documented in the HPI. ROS Other: All systems not noted in ROS Statement are negative. Past Medical History Past Medical History: GERD/Reflux, Hyperlipidemia, Hypertension, Sleep Apnea/CPAP/BIPAP Additional Past Medical History / Comment(s): diverticulitis perforated bowel no surgery. (states pin hole)., hx of midline IV access -states her body rejected it . History of Any Multi-Drug Resistant Organisms: None Reported Past Surgical History: Section, Hernia Repair Additional Past Surgical History / Comment(s): x3 Past Anesthesia/Blood Transfusion Reactions: No Reported Reaction, Motion Sickness Past Psychological History: ADD/ADHD Smoking Status: Vaper Past Alcohol Use History: Occasional Past Drug Use History: Marijuana - Past Family History Mother Family Medical History: AFIB Additional Family Medical History / Comment(s): coronary artery disease. Father Family Medical History: Cancer Additional Family Medical History / Comment(s): coronary artery disease and skin cancer. General Exam Limitations: no limitations General appearance: alert, in no apparent distress, obese Head exam: Present: atraumatic, normocephalic, normal inspection Eye exam: Present: normal appearance, PERRL, EOMI Pupils: Present: normal accommodation ENT exam: Present: normal exam, normal oropharynx, mucous membranes moist Neck exam: Present: normal inspection, full ROM. Absent: tenderness Respiratory exam: Present: normal lung sounds bilaterally. Absent: respiratory distress, wheezes, rales, rhonchi, stridor, chest wall tenderness Cardiovascular Exam: Present: regular rate, normal rhythm, normal heart sounds. Absent: systolic murmur, diastolic murmur GI/Abdominal exam: Present: soft. Absent: distended, tenderness, guarding, rebound Extremities exam: Present: normal inspection, full ROM, normal capillary refill Back exam: Present: normal inspection, full ROM. Absent: tenderness, CVA tenderness (R), CVA tenderness (L) Neurological exam: Present: alert, oriented X3 Psychiatric exam: Present: normal affect, normal mood Skin exam: Present: warm, dry, intact, normal color Course Vital Signs 07/29/20 17:01 Temperature 103.1 F H Pulse Rate 65 Respiratory 18 Rate Blood Pressure 153/85 O2 Sat by Pulse 96 Oximetry Medical Decision Making - Medical Decision Making 40-year-old female presenting to the emergency department with a chief complaint of fever. On physical examination, patient is well-appearing. Her lungs are clear to auscultation. Vital signs are within normal limits except for a fever 103.1. Patient has not been taking any antipyretics at home. Patient was given 1000 g of Tylenol in the emergency department. On reevaluation, improved vital signs. Patient does not have a fever anymore. Chest x-ray is unremarkable. CBC CMP unremarkable. Mild transaminitis noted. Covid negative. I suspect a viral syndrome causing the patient to have the symptoms. Patient was given antiemetics and IV fluids. On reevaluation, she feels much better and is ready to go home. Patient will be discharged with Zofran Tylenol and Motrin. Advised to drink plenty of fluids, preferably Gatorade or Pedialyte. Return parameters were thoroughly discussed the patient was understanding and agreeable. Case discussed with physician. - Lab Data Result diagrams: 07/29/20 17:37 07/29/20 17:37 Lab Results 07/29/20 07/29/20 07/29/20 Range/Units 17:37 17:37 17:37 WBC 4.9 (3.8-10.6) k/uL RBC 4.58 (3.80-5.40) m/uL Hgb 14.2 (11.4-16.0) gm/dL Hct 41.1 (34.0-46.0) % MCV 89.8 (80.0-100.0) fL MCH 30.9 (25.0-35.0) pg MCHC 34.5 (31.0-37.0) g/dL RDW 13.1 (11.5-15.5) % Plt Count 131 L (150-450) k/uL MPV 7.2 Neutrophils % (Manual) 70 % Lymphocytes % (Manual) 23 % Monocytes % (Manual) 7 % Neutrophils # (Manual) 3.43 (1.3-7.7) k/uL Lymphocytes # (Manual) 1.13 (1.0-4.8) k/uL Monocytes # (Manual) 0.34 (0-1.0) k/uL Nucleated RBCs 0 (0-0) /100 WBC Manual Slide Review Performed Reactive Lymphocytes Present Sodium 134 L (137-145) mmol/L Potassium 3.8 (3.5-5.1) mmol/L Chloride 103 (98-107) mmol/L Carbon Dioxide 24 (22-30) mmol/L Anion Gap 7 mmol/L BUN 7 (7-17) mg/dL Creatinine 0.85 (0.52-1.04) mg/dL Est GFR (CKD-EPI)AfAm >90 (>60 ml/min/1.73 sqM) Est GFR (CKD-EPI)NonAf 87 (>60 ml/min/1.73 sqM) Glucose 132 H (74-99) mg/dL Calcium 9.2 (8.4-10.2) mg/dL Total Bilirubin 0.9 (0.2-1.3) mg/dL AST 39 H (14-36) U/L ALT 44 H (4-34) U/L Alkaline Phosphatase 63 (38-126) U/L Total Protein 7.6 (6.3-8.2) g/dL Albumin 4.3 (3.5-5.0) g/dL Coronavirus (PCR) Not Detected (Not Detectd) Disposition Clinical Impression: Viral syndrome, Fever Disposition: HOME SELF-CARE Condition: Stable Instructions (If sedation given, give patient instructions): Fever in Adults (ED) Additional Instructions: Alternate between Tylenol and Motrin for fever control. Drink plenty of fluids, preferably Gatorade or Pedialyte. Return to emergency department if symptoms worsen. Follow with the primary care physician. Prescriptions: Ibuprofen [Motrin] 800 mg PO Q6HR #30 tab Acetaminophen Tab [Tylenol Tab] 500 mg PO Q6H PRN #30 tablet PRN Reason: Pain Ondansetron Odt [Zofran Odt] 4 mg PO Q8HR PRN #14 tab PRN Reason: Nausea Is patient prescribed a controlled substance at d/c from ED?: No Referrals: Calin Narvaez MD [Primary Care Provider] - 1-2 days Time of Disposition: 18:59
[2020-07-29] MEDS ORDERED: SODIUM CHLORIDE 0.9% 1,000 ML IV STA (17:28)
[2020-07-29] MEDS ORDERED: ONDANSETRON 4 MG/2 ML VIAL IVP STA (17:29)
[2020-07-29 17:55] LABS: HCT 41.1 % (34.0-46.0); HGB 14.2 gm/dL (11.4-16.0); MCH 30.9 pg (25.0-35.0); MCHC 34.5 g/dL (31.0-37.0); MCV 89.8 fL (80.0-100.0); Mean Platelet Volume 7.2; Platelet Count 131 k/uL (150-450); RBC 4.58 m/uL (3.80-5.40); RDW 13.1 % (11.5-15.5); WBC 4.9 k/uL (3.8-10.6)
[2020-07-29 18:02] LABS: ALT 44 U/L (4-34); AST 39 U/L (14-36); African American GFR (CKD) >90 (>60 ml/min/1.73 sqM); Albumin 4.3 g/dL (3.5-5.0); Alkaline Phosphatase 63 U/L (38-126); Anion Gap 7 mmol/L; Blood Urea Nitrogen 7 mg/dL (7-17); Calcium 9.2 mg/dL (8.4-10.2); Carbon Dioxide 24 mmol/L (22-30); Chloride 103 mmol/L (98-107); Glucose 132 mg/dL (74-99); Non-African American GFR(CKD) 87 (>60 ml/min/1.73 sqM); Potassium 3.8 mmol/L (3.5-5.1); Sodium 134 mmol/L (137-145); Total Bilirubin 0.9 mg/dL (0.2-1.3); Total Protein 7.6 g/dL (6.3-8.2)
--- NOTE | 2020-07-29 18:07 | XR ---
EXAMINATION TYPE: XR chest 2V DATE OF EXAM: 07/29/2020 COMPARISON: October 19, 2018 HISTORY: Cough and fever TECHNIQUE: 2 views FINDINGS: Heart and mediastinum are normal. Lungs are clear. Diaphragm is normal. Bony thorax appears normal. IMPRESSION: Normal chest. No change.
[2020-07-29 18:24] LABS: Lymphocytes # (M) 1.13 k/uL (1.0-4.8); Monocytes # (M) 0.34 k/uL (0-1.0); Neutrophils # (M) 3.43 k/uL (1.3-7.7); Neutrophils % (M) 70 %; Nucleated Red Blood Cells 0 /100 WBC (0-0); Total Cells Counted 100
[2020-07-29 18:25] LABS: Reactive Lymphocytes Present
[2020-07-29] MEDS ORDERED: ONDANSETRON 4 MG ODT STARTER PACK 2 TAB BTL PO STA (18:49)
[2020-07-29 18:56] VITALS: BP 125/68; PULSE 82; TEMP 100.8
== END 2020-07-29 19:28 | disposition home or self-care (01) ==
LOC: EC 16:59
DX: B34.9 Viral infection, unspecified (principal); F17.290 Nicotine dependence, other tobacco product, uncomplicated; I10 Essential (primary) hypertension; G47.33 Obstructive sleep apnea (adult) (pediatric); Z20.822 Contact with and (suspected) exposure to COVID-19; Z79.899 Other long term (current) drug therapy; Z99.89 Dependence on other enabling machines and devices; Z88.5 Allergy status to narcotic agent; Z88.8 Allergy status to other drugs, medicaments and biological substances
CPT/HCPCS: 36415; 80053; 85025; 87635; 71046; 99283; 96374; 96361 ×2; J2405; S0119

== ENCOUNTER 2020-08-02 19:49 | Emergency (ER) | payer OTHER ==
[2020-08-02 19:53] VITALS: RESP 18
[2020-08-02] MEDS ORDERED: SODIUM CHLORIDE 0.9% 500 ML 500 ML IV ONE (20:17)
[2020-08-02 20:31] LABS: Basophils # (A) 0.1 k/uL (0-0.2); Basophils % (A) 2 %; Eosinophils # (A) 0.2 k/uL (0-0.7); Eosinophils % (A) 3 %; HCT 36.3 % (34.0-46.0); HGB 12.7 gm/dL (11.4-16.0); Lymphocytes # (A) 2.1 k/uL (1.0-4.8); Lymphocytes % (A) 42 %; MCH 31.4 pg (25.0-35.0); MCV 89.6 fL (80.0-100.0); Mean Platelet Volume 8.6; Monocytes # (A) 0.5 k/uL (0-1.0); Monocytes % (A) 9 %; Neutrophils % (A) 41 %; Platelet Count 120 k/uL (150-450); RBC 4.05 m/uL (3.80-5.40); RDW 13.1 % (11.5-15.5)
[2020-08-02 20:43] LABS: ALT 86 U/L (4-34); AST 67 U/L (14-36); African American GFR (CKD) >90 (>60 ml/min/1.73 sqM); Albumin 3.7 g/dL (3.5-5.0); Alkaline Phosphatase 97 U/L (38-126); Anion Gap 7 mmol/L; Blood Urea Nitrogen 14 mg/dL (7-17); C Reactive Protein 29.3 mg/L (<10.0); Calcium 8.8 mg/dL (8.4-10.2); Carbon Dioxide 27 mmol/L (22-30); Chloride 105 mmol/L (98-107); Glucose 105 mg/dL (74-99); Non-African American GFR(CKD) >90 (>60 ml/min/1.73 sqM); Potassium 3.8 mmol/L (3.5-5.1); Sodium 139 mmol/L (137-145); Total Bilirubin 0.6 mg/dL (0.2-1.3); Total Protein 6.9 g/dL (6.3-8.2)
--- NOTE | 2020-08-02 20:54 | CT ---
EXAMINATION TYPE: CT brain wo con DATE OF EXAM: 08/02/2020 COMPARISON: None HISTORY: headache CT DLP: 1110.4 mGycm Automated exposure control for dose reduction was used. Ventricles have normal size. There is no mass effect nor midline shift. There is no sign of intracran ial hemorrhage. Calvarium is intact. There is no evidence of cerebral edema. Skull base is intact. IMPRESSION: Negative unenhanced head CT scan.
[2020-08-02] MEDS ORDERED: ACETAMINOPHEN TAB 325 MG TAB PO STA (20:58)
[2020-08-02] MEDS ORDERED: ONDANSETRON 4 MG/2 ML VIAL IVP STA (20:58)
[2020-08-02] MEDS ORDERED: KETOROLAC 15 MG/ML 1 ML VIAL IVP STA (20:58)
[2020-08-02 21:12] LABS: Erythrocyte Sedimentation Rate 21 mm/hr (0-20)
--- NOTE | 2020-08-02 21:19 | ED ---
Headache HPI <Dominick Angel - Last Filed: 08/02/20 22:39> - General Mode of arrival: ambulatory Limitations: no limitations <Mayte Grullon - Last Filed: 08/03/20 00:00> - General Chief Complaint: Headache Stated Complaint: Headache,Revisit Time Seen by Provider: 08/02/20 19:54 - History of Present Illness Initial Comments: 40yo female presenting for cc of headache, body aches, neck pain, cough. Patient states since last Saturday she is felt rundown she states she has had body aches on and off as well as some neck tenderness. Patient states that she has had cough. She states that she now has a headache every time she coughs. She denies any chest pain shortness of breath dysuria or urgency frequency abdominal pain. Patient denies any light sensitivity, speech changes weakness sensation deficits. Patient denies dizziness or presyncope. Denies falls head trauma anticoagulation use denies history of aneurysm. Patient appears well nontoxic in no acute distress. moving neck freely during conversation. (Mayte Grullon) - Related Data Home Medications Medication Instructions Recorded Confirmed lisinopriL [Zestril] 20 mg PO DAILY 07/29/20 08/02/20 Ibuprofen [Motrin] 800 mg PO Q6HR PRN 08/02/20 08/02/20 Previous Rx's Medication Instructions Recorded Acetaminophen Tab [Tylenol Tab] 500 mg PO Q6H PRN #30 tablet 07/29/20 Ondansetron Odt [Zofran Odt] 4 mg PO Q8HR PRN #14 tab 07/29/20 Allergies Allergy/AdvReac Type Severity Reaction Status Date / Time codeine Allergy Itching Verified 08/02/20 20:30 ertapenem Allergy Rash/Hives Verified 08/02/20 20:30 Review of Systems ROS Other: All systems not noted in ROS Statement are negative. <Dominick Angel - Last Filed: 08/02/20 22:39> ROS Other: All systems not noted in ROS Statement are negative. <Mayte Grullon - Last Filed: 08/03/20 00:00> ROS Statement: Those systems with pertinent positive or pertinent negative responses have been documented in the HPI. 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 (states pin hole)., hx of midline IV access -states her body rejected i t . History of Any Multi-Drug Resistant Organisms: None Reported Past Surgical History: Section, Hernia Repair Additional Past Surgical History / Comment(s): x3 Past Anesthesia/Blood Transfusion Reactions: No Reported Reaction, Motion Sickness Past Psychological History: ADD/ADHD Smoking Status: Vaper Past Alcohol Use History: Occasional Past Drug Use History: Marijuana - Past Family History Mother Family Medical History: AFIB Additional Family Medical History / Comment(s): coronary artery disease. Father Family Medical History: Cancer Additional Family Medical History / Comment(s): coronary artery disease and skin cancer. <Mayte Grullon L - Last Filed: 08/03/20 00:00> General Exam Limitations: no limitations <Mayte Grullon - Last Filed: 08/03/20 00:00> - General Exam Comments Initial Comments: General: The patient is awake and alert, in no distress Eye: +3 mm pupils are equal, round and reactive to light, extra-ocular movements are intact. No nystagmus. There is normal conjunctiva bilaterally. No signs of icterus. Ears, nose, mouth and throat: There are moist mucous membranes and no oral lesions. Oropharynx nonerythematous, mastoid nontender, TM WNL. Neck: The neck is supple, there is no tenderness or JVD. No nuchal rigidity. Negative Kernig negative Brudzinski moving neck freely during history Cardiovascular: There is a regular rate and rhythm. No murmur, rub or gallop is appreciated. Respiratory: Lungs are clear to auscultation, respirations are non-labored, breath sounds are equal. No wheezes, stridor, rales, or rhonchi. Gastrointestinal: Soft, non-distended, non-tender abdomen without masses or organomegaly noted. There is no rebound or guarding present. Musculoskeletal: Normal ROM, no tenderness. Strength 5/5 of the upper and lower extremities equal and comparison bilaterally. Sensation intact of the upper and lower extremities equal comparison bilaterally. No pronator drift. Pulses equal bilaterally 2+. Neurological: A&O x 3. CN II-XII intact, There are no obvious motor or sensory deficits. Coordination appears intact, gait smooth and coordinated. Speech is normal. Skin: Skin is warm and dry and no rashes or lesions are noted. Psychiatric: Cooperative, appropriate mood & affect, normal judgment. (Mayte Grullon) Course Vital Signs 08/02/20 08/02/20 08/02/20 19:51 21:34 22:57 Temperature 98.3 F 98.4 F Pulse Rate 103 H 77 71 Respiratory 18 18 18 Rate Blood Pressure 132/74 137/91 126/84 O2 Sat by Pulse 99 98 97 Oximetry Medical Decision Making - Lab Data Result diagrams: 08/02/20 20:08 08/02/20 20:08 <Dominick Angel - Last Filed: 08/02/20 22:39> - Lab Data Result diagrams: 08/02/20 20:08 08/02/20 20:08 <Mayte Grullon - Last Filed: 08/03/20 00:00> - Medical Decision Making PA attestation: I, Dr. Dominick Angel, personally saw and examined the patient. I have reviewed and agree with the resident/PA findings, including all diagnostic interpretations and treatment plans as written unless otherwise stated. I was present for the cheney portions of any procedures performed and inclusive time noted for any critical care statement. Patient was seen and evaluated at bedside along with PA, Greta Grullon. Briefly, patient is a 40-year-old female past nuchal history of migraines who presents with vague constitutional symptoms, neck pain and headache for the last several days. She states that she's been checking her temperatures at home with a thermometer evidence measuring temperature is elevated at 101. She's been having some night sweats that have been on and off. She states she does have irregular menstrual cycles. Currently at bedside upon my interview her only ongoing complaint was upper neck pain. Vital signs and she arrived shows 98.3 temperature, 103 heart rate, rest of vital signs within acceptable limits. Physical examination is benign. She did not have any symptoms suggestive of meningitis. Kernig's is negative, Lhermitte's sign was negative, Brudzinski's was negative. Patient had tenderness over the bilateral soft tissues of the upper cervical spinal area. He is moving her neck about freely. Her labs were unimpressive. No leukocytosis. His R was 21, CRP is 29.3 her metabolic panel is negative. Influenza, RSV and covid were all negative. Computed tomography scan of the brain is unremarkable. (Dominick Angel) 40-year-old female presenting for bodyaches neck pain cough fever. Previous loi st x-ray negative. UA no overtly concerning for infection, culture pending. Pt covid, influenza (-). Lungs clear. Pt denies chest pain, dyspnea or abdominal pain. No focal defitics. CT brain (-). Pt has no nuchal irritation signs. Patient appear nontoxic. No leuckocytosis at this time I feel given pt described symptoms/labs she has viral syndrome. Recommend pcp f/u. Pt was evaluated with attending who concurs with disposition and care plan. (Mayte Grullon) - Lab Data Lab Results 08/02/20 08/02/20 08/02/20 Range/Units 20:08 20:08 20:08 WBC 5.0 (3.8-10.6) k/uL RBC 4.05 (3.80-5.40) m/uL Hgb 12.7 (11.4-16.0) gm/dL Hct 36.3 (34.0-46.0) % MCV 89.6 (80.0-100.0) fL MCH 31.4 (25.0-35.0) pg MCHC 35.0 (31.0-37.0) g/dL RDW 13.1 (11.5-15.5) % Plt Count 120 L (150-450) k/uL MPV 8.6 Neutrophils % 41 % Lymphocytes % 42 % Monocytes % 9 % Eosinophils % 3 % Basophils % 2 % Neutrophils # 2.0 (1.3-7.7) k/uL Lymphocytes # 2.1 (1.0-4.8) k/uL Monocytes # 0.5 (0-1.0) k/uL Eosinophils # 0.2 (0-0.7) k/uL Basophils # 0.1 (0-0.2) k/uL ESR 21 H (0-20) mm/hr Sodium 139 (137-145) mmol/L Potassium 3.8 (3.5-5.1) mmol/L Chloride 105 (98-107) mmol/L Carbon Dioxide 27 (22-30) mmol/L Anion Gap 7 mmol/L BUN 14 (7-17) mg/dL Creatinine 0.82 (0.52-1.04) mg/dL Est GFR (CKD-EPI)AfAm >90 (>60 ml/min/1.73 sqM) Est GFR (CKD-EPI)NonAf >90 (>60 ml/min/1.73 sqM) Glucose 105 H (74-99) mg/dL Calcium 8.8 (8.4-10.2) mg/dL Total Bilirubin 0.6 (0.2-1.3) mg/dL AST 67 H (14-36) U/L ALT 86 H (4-34) U/L Alkaline Phosphatase 97 (38-126) U/L C-Reactive Protein 29.3 H (<10.0) mg/L Total Protein 6.9 (6.3-8.2) g/dL Albumin 3.7 (3.5-5.0) g/dL Urine Color Urine Appearance (Clear) Urine pH (5.0-8.0) Ur Specific [place] (1.001-1.035) Urine Protein (Negative) Urine Glucose (UA) (Negative) Urine Ketones (Negative) Urine Blood (Negative) Urine Nitrite (Negative) Urine Bilirubin (Negative) Urine Urobilinogen (<2.0) mg/dL Ur Leukocyte Esterase (Negative) Urine RBC (0-5) /hpf Urine WBC (0-5) /hpf Ur Squamous Epith Cells (0-4) /hpf Urine Mucus (None) /hpf Influenza Type A (PCR) Not Detected (Not Detectd) Influenza Type B (PCR) Not Detected (Not Detectd) RSV (PCR) Not Detected (Not Detectd) SARS-CoV-2 (PCR) Not Detected (Not Detectd) 08/02/20 Range/Units 22:25 WBC (3.8-10.6) k/uL RBC (3.80-5.40) m/uL Hgb (11.4-16.0) gm/dL Hct (34.0-46.0) % MCV (80.0-100.0) fL MCH (25.0-35.0) pg MCHC (31.0-37.0) g/dL RDW (11.5-15.5) % Plt Count (150-450) k/uL MPV Neutrophils % % Lymphocytes % % Monocytes % % Eosinophils % % Basophils % % Neutrophils # (1.3-7.7) k/uL Lymphocytes # (1.0-4.8) k/uL Monocytes # (0-1.0) k/uL Eosinophils # (0-0.7) k/uL Basophils # (0-0.2) k/uL ESR (0-20) mm/hr Sodium (137-145) mmol/L Potassium (3.5-5.1) mmol/L Chloride (98-107) mmol/L Carbon Dioxide (22-30) mmol/L Anion Gap mmol/L BUN (7-17) mg/dL Creatinine (0.52-1.04) mg/dL Est GFR (CKD-EPI)AfAm (>60 ml/min/1.73 sqM) Est GFR (CKD-EPI)NonAf (>60 ml/min/1.73 sqM) Glucose (74-99) mg/dL Calcium (8.4-10.2) mg/dL Total Bilirubin (0.2-1.3) mg/dL AST (14-36) U/L ALT (4-34) U/L Alkaline Phosphatase (38-126) U/L C-Reactive Protein (<10.0) mg/L Total Protein (6.3-8.2) g/dL Albumin (3.5-5.0) g/dL Urine Color Yellow Urine Appearance Cloudy H (Clear) Urine pH 6.0 (5.0-8.0) Ur Specific [place] 1.027 (1.001-1.035) Urine Protein Trace H (Negative) Urine Glucose (UA) Negative (Negative) Urine Ketones Negative (Negative) Urine Blood Negative (Negative) Urine Nitrite Negative (Negative) Urine Bilirubin Negative (Negative) Urine Urobilinogen 2.0 (<2.0) mg/dL Ur Leukocyte Esterase Trace H (Negative) Urine RBC 1 (0-5) /hpf Urine WBC 9 H (0-5) /hpf Ur Squamous Epith Cells 4 (0-4) /hpf Urine Mucus Few H (None) /hpf Influenza Type A (PCR) (Not Detectd) Influenza Type B (PCR) (Not Detectd) RSV (PCR) (Not Detectd) SARS-CoV-2 (PCR) (Not Detectd) Disposition <JeanneDominick D - Last Filed: 08/02/20 22:39> Is patient prescribed a controlled substance at d/c from ED?: No Time of Disposition: 22:58 <Mayte Grullon Sandy - Last Filed: 08/03/20 00:00> Clinical Impression: Headache, Hx of fever, Body aches, Cough Disposition: HOME SELF-CARE Condition: Good Instructions (If sedation given, give patient instructions): Viral Syndrome (ED) Additional Instructions: Please use medication as discussed. Please follow-up with family doctor in the next 2 days of symptoms have not improved. Please return to emergency room if the symptoms increase or worsen or for any other concerns. Referrals: Calin Narvaez MD [Primary Care Provider] - 1-2 days
[2020-08-02 22:39] LABS: Appearance,Urine Cloudy (Clear); Bilirubin,Urine Negative (Negative); Blood,Urine Negative (Negative); Color,Urine Yellow; Glucose,Urine (UA) Negative (Negative); Ketones,Urine Negative (Negative); Leukocyte Esterase,Urine Trace (Negative); Mucus,Urine Few /hpf; Nitrite,Urine Negative (Negative); Protein,Urine Trace (Negative); RBC,Urine 1 /hpf (0-5); Specific Gravity,Urine 1.027 (1.001-1.035); Squamous Epithelial Cell,Urine 4 /hpf (0-4); WBC,Urine 9 /hpf (0-5)
[2020-08-02 22:59] VITALS: BP 126/84; PULSE 71; TEMP 98.4
== END 2020-08-02 23:17 | disposition home or self-care (01) ==
LOC: EC 19:49
DX: R51.9 Headache, unspecified (principal); R05 Cough; I10 Essential (primary) hypertension; G47.30 Sleep apnea, unspecified; F17.290 Nicotine dependence, other tobacco product, uncomplicated; Z20.822 Contact with and (suspected) exposure to COVID-19; Z87.898 Personal history of other specified conditions; Z79.899 Other long term (current) drug therapy; Z88.5 Allergy status to narcotic agent; Z88.8 Allergy status to other drugs, medicaments and biological substances; Z99.89 Dependence on other enabling machines and devices
CPT/HCPCS: 36415; 80053; 85652; 85025; 86140; 81001; 87086; 84145; 87636; 70450; 99284; 96374; 96375; 96361; J2405; J1885

== ENCOUNTER 2020-10-31 22:41 | Emergency (ER) | payer OTHER ==
[2020-11-01 00:20] LABS: Basophils # (A) 0.1 k/uL (0-0.2); Basophils % (A) 0 %; Eosinophils # (A) 0.4 k/uL (0-0.7); Eosinophils % (A) 3 %; HCT 40.9 % (34.0-46.0); HGB 14.2 gm/dL (11.4-16.0); Lymphocytes # (A) 3.3 k/uL (1.0-4.8); Lymphocytes % (A) 26 %; MCH 31.7 pg (25.0-35.0); MCHC 34.8 g/dL (31.0-37.0); MCV 91.1 fL (80.0-100.0); Mean Platelet Volume 6.9; Monocytes # (A) 1.1 k/uL (0-1.0); Monocytes % (A) 9 %; Neutrophils # (A) 7.6 k/uL (1.3-7.7); Neutrophils % (A) 61 %; Platelet Count 237 k/uL (150-450); RBC 4.49 m/uL (3.80-5.40); RDW 12.6 % (11.5-15.5); WBC 12.6 k/uL (3.8-10.6)
[2020-11-01 00:33] LABS: ALT 22 U/L (4-34); AST 20 U/L (14-36); African American GFR (CKD) >90 (>60 ml/min/1.73 sqM); Albumin 4.3 g/dL (3.5-5.0); Alkaline Phosphatase 68 U/L (38-126); Anion Gap 6 mmol/L; Blood Urea Nitrogen 17 mg/dL (7-17); Calcium 9.6 mg/dL (8.4-10.2); Carbon Dioxide 25 mmol/L (22-30); Chloride 105 mmol/L (98-107); Glucose 123 mg/dL (74-99); Magnesium 1.9 mg/dL (1.6-2.3); Non-African American GFR(CKD) 87 (>60 ml/min/1.73 sqM); Sodium 136 mmol/L (137-145); Total Bilirubin 0.4 mg/dL (0.2-1.3); Total Protein 7.3 g/dL (6.3-8.2)
[2020-11-01 00:57] LABS: Appearance,Urine Clear (Clear); Bacteria,Urine Few /hpf; Bilirubin,Urine Negative (Negative); Blood,Urine Negative (Negative); Color,Urine Yellow; Glucose,Urine (UA) Negative (Negative); Ketones,Urine Negative (Negative); Leukocyte Esterase,Urine Moderate (Negative); Mucus,Urine Few /hpf; Nitrite,Urine Negative (Negative); PH, Urine 5.5 (5.0-8.0); Protein,Urine Trace (Negative); RBC,Urine <1 /hpf (0-5); Specific Gravity,Urine 1.033 (1.001-1.035); Squamous Epithelial Cell,Urine 1 /hpf (0-4); WBC,Urine 32 /hpf (0-5)
[2020-11-01 01:35] VITALS: PULSE 87; RESP 16
[2020-11-01] MEDS ORDERED: cloNIDine HCL 0.2 MG TAB PO STA (01:43)
[2020-11-01] MEDS ORDERED: hydroCHLOROthiazide 25 MG TAB PO STA (01:46)
--- NOTE | 2020-11-01 01:47 | ED ---
Recheck HPI - General Chief Complaint: Recheck/Abnormal Lab/Rx Stated Complaint: Headache Time Seen by Provider: 11/01/20 01:37 Source: patient, RN notes reviewed, old records reviewed Mode of arrival: ambulatory Limitations: no limitations - History of Present Illness Initial Comments: This is a 40-year-old female DF for evaluation patient has history of high blood pressure and coming in with uncontrolled blood pressure home. Ration denying any other complaints aside from headache. No traumas. No recent travel history she currently takes. Blood pressures been significantly elevated at home but no chest pain no shortness breath or abdominal pain. Denies drugs or alcohol no change in medications patient states she has been taking medications accurately at home states blood pressures been high in the past which she does not take oral medications MD Complaint: other (Elevated blood pressure) -: week(s) Returns Today for: other (No new symptoms) Symptoms Since Prior Visit: no new symptoms Context: ran out of medication (Patient will need more blood pressure medication) Associated Symptoms: none Treatments Prior to Arrival: other (none) - Related Data Home Medications Medication Instructions Recorded Confirmed lisinopriL [Zestril] 20 mg PO DAILY 07/29/20 08/02/20 Ibuprofen [Motrin] 800 mg PO Q6HR PRN 08/02/20 08/02/20 Previous Rx's Medication Instructions Recorded Acetaminophen Tab [Tylenol Tab] 500 mg PO Q6H PRN #30 tablet 07/29/20 Ondansetron Odt [Zofran Odt] 4 mg PO Q8HR PRN #14 tab 07/29/20 hydroCHLOROthiazide [Hydrodiuril] 50 mg PO DAILY #90 tab 11/01/20 Allergies Allergy/AdvReac Type Severity Reaction Status Date / Time codeine Allergy Itching Verified 10/31/20 23:07 ertapenem Allergy Rash/Hives Verified 10/31/20 23:07 Review of Systems ROS Statement: Those systems with pertinent positive or pertinent negative responses have been documented in the HPI. ROS Other: All systems not noted in ROS Statement are negative. Past Medical History Past Medical History: GERD/Reflux, Hyperlipidemia, Hypertension, Sleep Apnea/C PAP/BIPAP Additional Past Medical History / Comment(s): diverticulitis perforated bowel no surgery. (states pin hole)., hx of midline IV access -states her body rejected it . History of Any Multi-Drug Resistant Organisms: None Reported Past Surgical History: Section, Hernia Repair Additional Past Surgical History / Comment(s): x3 Past Anesthesia/Blood Transfusion Reactions: No Reported Reaction, Motion Sickness Past Psychological History: ADD/ADHD Smoking Status: Vaper Past Alcohol Use History: Occasional Past Drug Use History: Marijuana - Past Family History Mother Family Medical History: AFIB Additional Family Medical History / Comment(s): coronary artery disease. Father Family Medical History: Cancer Additional Family Medical History / Comment(s): coronary artery disease and skin cancer. General Exam Limitations: no limitations General appearance: alert, in no apparent distress Head exam: Present: atraumatic, normocephalic, normal inspection Eye exam: Present: normal appearance, PERRL, EOMI. Absent: scleral icterus, conjunctival injection, periorbital swelling ENT exam: Present: normal exam, mucous membranes moist Neck exam: Present: normal inspection. Absent: tenderness, meningismus, lymphadenopathy Respiratory exam: Present: normal lung sounds bilaterally. Absent: respiratory distress, wheezes, rales, rhonchi, stridor Cardiovascular Exam: Present: regular rate, normal rhythm, normal heart sounds. Absent: systolic murmur, diastolic murmur, rubs, gallop, clicks GI/Abdominal exam: Present: soft, normal bowel sounds. Absent: distended, tenderness, guarding, rebound, rigid Extremities exam: Present: normal inspection, full ROM, normal capillary refill. Absent: tenderness, pedal edema, joint swelling, calf tenderness Back exam: Present: normal inspection Neurological exam: Present: alert, oriented X3, CN II-XII intact Psychiatric exam: Present: normal affect, normal mood Skin exam: Present: warm, dry, intact, normal color. Absent: rash Course Vital Signs 10/31/20 11/01/20 11/01/20 23:04 01:34 02:40 Temperature 98.1 F 97.6 F Pulse Rate 83 87 87 Respiratory 20 16 16 Rate Blood Pressure 188/124 166/95 152/91 O2 Sat by Pulse 99 98 98 Oximetry - Reevaluation(s) Reevaluation #1: Medical record is reviewed Symptoms improved here in the ER Patient informed of results and questions answered Medical Decision Making - Medical Decision Making 40 female DEL with headache elevated blood pressure is 1 week. Patient given antiemetic therapy and can be discharged home - Lab Data Result diagrams: 11/01/20 00:11 11/01/20 00:11 Lab Results 11/01/20 11/01/20 11/01/20 Range/Units 00:11 00:11 00:39 WBC 12.6 H (3.8-10.6) k/uL RBC 4.49 (3.80-5.40) m/uL Hgb 14.2 (11.4-16.0) gm/dL Hct 40.9 (34.0-46.0) % MCV 91.1 (80.0-100.0) fL MCH 31.7 (25.0-35.0) pg MCHC 34.8 (31.0-37.0) g/dL RDW 12.6 (11.5-15.5) % Plt Count 237 (150-450) k/uL MPV 6.9 Neutrophils % 61 % Lymphocytes % 26 % Monocytes % 9 % Eosinophils % 3 % Basophils % 0 % Neutrophils # 7.6 (1.3-7.7) k/uL Lymphocytes # 3.3 (1.0-4.8) k/uL Monocytes # 1.1 H (0-1.0) k/uL Eosinophils # 0.4 (0-0.7) k/uL Basophils # 0.1 (0-0.2) k/uL Sodium 136 L (137-145) mmol/L Potassium 4.0 (3.5-5.1) mmol/L Chloride 105 (98-107) mmol/L Carbon Dioxide 25 (22-30) mmol/L Anion Gap 6 mmol/L BUN 17 (7-17) mg/dL Creatinine 0.85 (0.52-1.04) mg/dL Est GFR (CKD-EPI)AfAm >90 (>60 ml/min/1.73 sqM) Est GFR (CKD-EPI)NonAf 87 (>60 ml/min/1.73 sqM) Glucose 123 H (74-99) mg/dL Calcium 9.6 (8.4-10.2) mg/dL Magnesium 1.9 (1.6-2.3) mg/dL Total Bilirubin 0.4 (0.2-1.3) mg/dL AST 20 (14-36) U/L ALT 22 (4-34) U/L Alkaline Phosphatase 68 (38-126) U/L Total Protein 7.3 (6.3-8.2) g/dL Albumin 4.3 (3.5-5.0) g/dL Urine Color Yellow Urine Appearance Clear (Clear) Urine pH 5.5 (5.0-8.0) Ur Specific Draper 1.033 (1.001-1.035) Urine Protein Trace H (Negative) Urine Glucose (UA) Negative (Negative) Urine Ketones Negative (Negative) Urine Blood Negative (Negative) Urine Nitrite Negative (Negative) Urine Bilirubin Negative (Negative) Urine Urobilinogen 2.0 (<2.0) mg/dL Ur Leukocyte Esterase Moderate H (Negative) Urine RBC <1 (0-5) /hpf Urine WBC 32 H (0-5) /hpf Ur Squamous Epith Cells 1 (0-4) /hpf Urine Bacteria Few H (None) /hpf Urine Mucus Few H (None) /hpf Disposition Clinical Impression: Hypertension Disposition: HOME SELF-CARE Condition: Good Instructions (If sedation given, give patient instructions): Hypertension (ED) Prescriptions: hydroCHLOROthiazide [Hydrodiuril] 50 mg PO DAILY #90 tab Is patient prescribed a controlled substance at d/c from ED?: No Referrals: Calin Narvaez MD [Primary Care Provider] - 1-2 days
[2020-11-01 02:41] VITALS: BP 152/91; TEMP 97.6
== END 2020-11-01 02:40 | disposition home or self-care (01) ==
LOC: EC 22:41
DX: I10 Essential (primary) hypertension (principal); E78.5 Hyperlipidemia, unspecified; G47.30 Sleep apnea, unspecified
CPT/HCPCS: 36415; 80053; 81001; 83735; 85025; 87086; 93005; 99284

== ENCOUNTER 2022-07-09 19:32 | Emergency (ER) | payer OTHER ==
[2022-07-09] MEDS ORDERED: ACETAMINOPHEN TAB 500 MG TAB PO STA (21:01)
--- NOTE | 2022-07-09 21:06 | ED ---
Upper Extremity HPI - General Chief Complaint: Extremity Injury, Upper Stated Complaint: Fall-R arm injury Time Seen by Provider: 07/09/22 20:50 Source: patient Mode of arrival: ambulatory Limitations: no limitations - History of Present Illness Initial Comments: This is a 42-year-old female that presents ambulatory with complaints of right upper arm pain after falling in her garage at 3:30 this afternoon onto her right upper arm. She states that today's increased swelling and pain down her forearm denies any loss of consciousness no other injuries. Did not hit her head. Did take Motrin a couple hours prior to arrival. Complaint: Injury to:: right, arm, forearm, wrist -: hour(s) (6) Other Extremity Injury: Arm: Right Place: home (garage) Severity scale (1-10): 6 Context: fall - Related Data Home Medications Medication Instructions Recorded Confirmed lisinopriL [Zestril] 20 mg PO DAILY 07/29/20 08/02/20 Ibuprofen [Motrin] 800 mg PO Q6HR PRN 08/02/20 08/02/20 Previous Rx's Medication Instructions Recorded Acetaminophen Tab [Tylenol Tab] 500 mg PO Q6H PRN #30 tablet 07/29/20 Ondansetron Odt [Zofran Odt] 4 mg PO Q8HR PRN #14 tab 07/29/20 hydroCHLOROthiazide [Hydrodiuril] 50 mg PO DAILY #90 tab 11/01/20 Ibuprofen [Motrin] 600 mg PO Q8HR PRN #30 tab 07/09/22 Allergies Allergy/AdvReac Type Severity Reaction Status Date / Time codeine Allergy Itching Verified 07/09/22 20:22 ertapenem Allergy Rash/Hives Verified 07/09/22 20:22 Review of Systems ROS Statement: Those systems with pertinent positive or pertinent negative responses have been documented in the HPI. ROS Other: All systems not noted in ROS Statement are negative. Past Medical History Past Medical History: GERD/Reflux, Hyperlipidemia, Hypertension, Sleep Apnea/CPAP/BIPAP Additional Past Medical History / Comment(s): diverticulitis perforated bowel no surgery. (states pin hole)., hx of midline IV access -states her body rejected it . History of Any Multi-Drug Resistant Organisms: None Reported Past Surgical History: Section, Hernia Repair Additional Past Surgical History / Comment(s): x3 Past Anesthesia/Blood Transfusion Reactions: No Reported Reaction, Motion Sickness Past Psychological History: ADD/ADHD Smoking Status: Vaper Past Alcohol Use History: Occasional Past Drug Use History: Marijuana - Past Family History Mother Family Medical History: AFIB Additional Family Medical History / Comment(s): coronary artery disease. Father Family Medical History: Cancer Additional Family Medical History / Comment(s): coronary artery disease and skin cancer. General Exam Limitations: no limitations General appearance: alert, in no apparent distress Head exam: Present: atraumatic, normocephalic, normal inspection Eye exam: Absent: scleral icterus, conjunctival injection, periorbital swelling ENT exam: Present: mucous membranes moist Neck exam: Present: full ROM. Absent: tenderness, meningismus, lymphadenopathy Respiratory exam: Absent: respiratory distress, accessory muscle use Cardiovascular Exam: Present: regular rate GI/Abdominal exam: Present: soft Right Upper Arm exam: Present: tenderness (Pain with pronation and supination), swelling. Absent: full ROM, abrasion, laceration, ecchymosis, deformity, crepidus, dislocation, erythema Elbow exam: Present: tenderness, pain w/ pronation/supination, other (No pain with flexion or extension). Absent: full ROM, swelling, ecchymosis, deformity, tenderness over radial head Forearm Wrist exam: Present: tenderness. Absent: swelling, abrasion, ecchymosis, erythema, tenderness over anatomical snuff box Hand Wrist exam: Present: full ROM. Absent: tenderness, swelling Neuro motor exam: Present: thumb opposition intact, thumb IP flexion intact, thumb adduction intact, fingers 2-5 abduction intact Neurosensory exam: Present: radial nerve intact, ulnar nerve intact, median nerve intact Vascular: Present: normal capillary refill, radial pulse. Absent: vascular compromise Back exam: Absent: tenderness Neurological exam: Present: alert, oriented X3 Psychiatric exam: Present: normal affect, normal mood Skin exam: Present: warm, dry, normal color. Absent: cyanosis, diaphoretic, petechiae, pallor Course Vital Signs 07/09/22 07/09/22 20:15 21:51 Temperature 97.8 F 97.6 F Pulse Rate 65 74 Respiratory 16 18 Rate Blood Pressure 156/90 142/93 O2 Sat by Pulse 99 99 Oximetry Medical Decision Making - Medical Decision Making X-ray of the right humerus interpreted by me shows no evidence of fracture or dislocation. Radiologist interpretation is some calcific tendinitis at the shoulder joint. Right forearm negative. Negative right hand exam. No abnormality of the right wrist. She will be placed in a sling directed. Directed to take Tylenol and Motrin for pain or discomfort. Follow-up with primary care doctor next week and return to emergency room if any new or concerning symptoms. Case discussed with Dr. Alves Was pt. sent in by a medical professional or institution? @ no Did you speak to anyone other than the patient for history? @ no Did you review nursing and triage notes? @ yes agree Were old charts reviewed? @no Differential Diagnosis? @ fracture, dislocation, musculoskeletal pain EKG interpreted by me (3pts min.)? @ na X-rays interpreted by me (1pt min.)? @yes as above CT interpreted by me (1pt min.)? @ na U/S interpreted by me (1pt. min.)? @ n/a What testing was considered but not performed? (CT, X-rays, U/S, labs)? Why? @ no What meds were considered but not given? Why? @ narcotics however patient allergic Did you discuss the management of the patient with other professionals? @ no Did you reconcile home meds? @ no Was smoking cessation discussed for >3mins.? @ n/a Was critical care preformed (if so, how long)? @ no Were there social determinants of health that impacted care today? How? (Homelessness, low income, unemployed, alcoholism, drug addiction, transportation, low edu. Level, literacy, decrease access to med. care, usp, rehab)? @ none Was there de-escalation of care discussed even if they declined? (Discuss DNR or withdrawal of care, Hospice)? @no What co-morbidities impacted this encounter? (DM, HTN, Smoking, COPD, CAD, Cancer, CVA, Hep., AIDS, mental health diagnosis, sleep apnea, morbid obesity)? @ HTN Was patient admitted / discharged? @discharged Undiagnosed new problem with uncertain prognosis? @ [none] Drug Therapy requiring intensive monitoring for toxicity (Heparin, Nitro, Insulin, Cardizem)? @ no Were any procedures done? @sling applied Diagnosis/symptom? @musculoskeltal strain Acute, or Chronic, or Acute on Chronic? @ acute Uncomplicated (without systemic symptoms) or Complicated (systemic symptoms)? @ [default] Side effects of treatment? @ [none] Exacerbation, Progression, or Severe Exacerbation] @ [no] Poses a threat to life or bodily function? @ [no] Disposition Clinical Impression: Arm pain, right, Musculoskeletal pain of right upper extremity, Fall Disposition: HOME SELF-CARE Condition: Good Instructions (If sedation given, give patient instructions): Musculoskeletal Pain (ED), Fall Prevention (ED), Arm Pain (ED) Additional Instructions: Rest, ice, and elevate. Wear sling for comfort. Take Tylenol and Motrin as needed for pain or discomfort. Follow-up with your primary care doctor this week. Prescriptions: Ibuprofen [Motrin] 600 mg PO Q8HR PRN #30 tab PRN Reason: Pain Is patient prescribed a controlled substance at d/c from ED?: No Referrals: Corey Mcdaniels MD [Primary Care Provider] - 1-2 days Time of Disposition: 21:24
--- NOTE | 2022-07-09 21:15 | XR ---
EXAMINATION TYPE: XR humerus RT DATE OF EXAM: 07/09/2022 COMPARISON: NONE HISTORY: Pain TECHNIQUE: 4 views FINDINGS: There is no evidence of fracture nor dislocation. The elbow joint and shoulder joint appear intact. There is calcification at the greater tuberosity of the humerus. IMPRESSION: There is some calcific tendinitis at the shoulder joint. No fracture seen.
--- NOTE | 2022-07-09 21:16 | XR ---
EXAMINATION TYPE: XR forearm RT DATE OF EXAM: 07/09/2022 COMPARISON: NONE HISTORY: Pain TECHNIQUE: 2 views FINDINGS: Radius and ulna appear intact. I see no fracture nor dislocation. No pathologic calcificati on. IMPRESSION: Negative right forearm exam.
--- NOTE | 2022-07-09 21:16 | XR ---
EXAMINATION TYPE: XR hand complete RT DATE OF EXAM: 07/09/2022 COMPARISON: NONE HISTORY: Pain TECHNIQUE: 3 views FINDINGS: Metacarpals are intact. There is no fracture nor dislocation. Joint spaces are normal. Ther e is minor spurring at the first carpometacarpal joint. IMPRESSION: Negative right hand exam. No fracture.
--- NOTE | 2022-07-09 21:18 | XR ---
EXAMINATION TYPE: XR wrist complete RT DATE OF EXAM: 07/09/2022 COMPARISON: NONE HISTORY: Pain TECHNIQUE: 4 views FINDINGS: There is no fracture nor dislocation. Joint spaces are normal. There is minor spurring at t he first carpometacarpal joint. IMPRESSION: No acute abnormality of the right wrist.
[2022-07-09 21:54] VITALS: BP 142/93; PULSE 74; RESP 18; TEMP 97.6
== END 2022-07-09 21:51 | disposition home or self-care (01) ==
LOC: EC 19:32
DX: M79.621 Pain in right upper arm (principal); I10 Essential (primary) hypertension; G47.30 Sleep apnea, unspecified; F12.90 Cannabis use, unspecified, uncomplicated; F17.290 Nicotine dependence, other tobacco product, uncomplicated; Z88.5 Allergy status to narcotic agent; Z04.3 Encounter for examination and observation following other accident; W10.9XXA Fall (on) (from) unspecified stairs and steps, initial encounter
CPT/HCPCS: 99283

== ENCOUNTER 2022-07-30 22:06 | Emergency (ER) | payer OTHER ==
--- NOTE | 2022-07-30 22:57 | ED ---
General Adult HPI - General Source: patient Mode of arrival: ambulatory <Carola Moctezuma - Last Filed: 07/30/22 22:57> - History of Present Illness Onset/Timin -: days(s) Location: abdomen Radiation: non-radiation Quality: dull Consistency: constant Improves with: none Worsens with: none <Gerardo Perez - Last Filed: 08/02/22 04:22> - General Chief complaint: Abdominal Pain Stated complaint: Diverticulitis Flare-up Time Seen by Provider: 07/30/22 22:57 - History of Present Illness Initial comments: Patient is a 42-year-old female presenting with chief complaint of abdominal pain. She states "I feel like my diverticulitis is flaring up". Pain is primarily in the right lower quadrant. She admits to loose stool. No nausea or vomiting. No fever or chills. No dysuria, hematuria or flank pain. (Carola Moctezuma) This patient is a 42-year-old woman who believes she is having a flareup of diverticulitis. She states she had similar episode of pain like this a couple of years ago and was diagnosed with diverticulitis. (Gerardo Perez) - Related Data Home Medications Medication Instructions Recorded Confirmed lisinopriL [Zestril] 20 mg PO DAILY 07/29/20 08/02/20 Ibuprofen [Motrin] 800 mg PO Q6HR PRN 08/02/20 08/02/20 Previous Rx's Medication Instructions Recorded Acetaminophen Tab [Tylenol Tab] 500 mg PO Q6H PRN #30 tablet 07/29/20 Ondansetron Odt [Zofran Odt] 4 mg PO Q8HR PRN #14 tab 07/29/20 hydroCHLOROthiazide [Hydrodiuril] 50 mg PO DAILY #90 tab 11/01/20 Ibuprofen [Motrin] 600 mg PO Q8HR PRN #30 tab 07/09/22 Amoxic-Pot Clav 875-125Mg 1 tab PO Q12HR 1 Days #14 tab 07/31/22 [Augmentin 875-125] Allergies Allergy/AdvReac Type Severity Reaction Status Date / Time codeine Allergy Itching Verified 07/30/22 22:54 ertapenem Allergy Rash/Hives Verified 07/30/22 22:54 Review of Systems ROS Other: All systems not noted in ROS Statement are negative. <Carola Moctezuma - Last Filed: 07/30/22 22:57> ROS Other: All systems not noted in ROS Statement are negative. Constitutional: Denies: fever, chills Respiratory: Denies: cough, dyspnea Cardiovascular: Denies: chest pain, palpitations, edema, syncope Gastrointestinal: Reports: abdominal pain, nausea. Denies: vomiting, diarrhea, constipation, melena, hematochezia Genitourinary: Denies: dysuria, hematuria Musculoskeletal: Denies: back pain Skin: Denies: rash Neurological: Denies: headache, weakness, numbness <Gerardo Perez - Last Filed: 08/02/22 04:22> ROS Statement: Those systems with pertinent positive or pertinent negative responses have been documented in the HPI. Past Medical History Past Medical History: GERD/Reflux, Hyperlipidemia, Hypertension, Sleep Apnea/CPAP/BIPAP Additional Past Medical History / Comment(s): diverticulitis perforated bowel no surgery. (states pin hole)., hx of midline IV access -states her body rejected it . History of Any Multi-Drug Resistant Organisms: None Reported Past Surgical History: Section, Hernia Repair Additional Past Surgical History / Comment(s): x3 Past Anesthesia/Blood Transfusion Reactions: No Reported Reaction, Motion Sickness Past Psychological History: ADD/ADHD Smoking Status: Vaper Past Alcohol Use History: Occasional Past Drug Use History: Marijuana - Past Family History Mother Family Medical History: AFIB Additional Family Medical History / Comment(s): coronary artery disease. Father Family Medical History: Cancer Additional Family Medical History / Comment(s): coronary artery disease and skin cancer. <Carola Moctezuma - Last Filed: 07/30/22 22:57> General Exam General appearance: alert, in no apparent distress Head exam: Present: atraumatic, normocephalic Eye exam: Present: normal appearance. Absent: scleral icterus, conjunctival injection Neck exam: Present: normal inspection Respiratory exam: Present: normal lung sounds bilaterally. Absent: respiratory distress, wheezes, rales, rhonchi, stridor Cardiovascular Exam: Present: regular rate, normal rhythm, normal heart sounds. Absent: systolic murmur, diastolic murmur, rubs, gallop GI/Abdominal exam: Present: soft, tenderness (Right lower abdominal tenderness w ithout rebound or guarding). Absent: distended, guarding, rebound, rigid, mass, pulsatile mass, hernia Extremities exam: Present: normal inspection, normal capillary refill. Absent: pedal edema, calf tenderness Back exam: Present: normal inspection. Absent: CVA tenderness (R), CVA tenderness (L) Neurological exam: Present: alert Skin exam: Present: warm, dry, intact, normal color. Absent: rash <Gerardo Perez - Last Filed: 08/02/22 04:22> Course Vital Signs 07/30/22 07/31/22 22:54 03:23 Temperature 98.3 F Pulse Rate 97 87 Respiratory 18 16 Rate Blood Pressure 176/127 155/92 O2 Sat by Pulse 99 99 Oximetry Medical Decision Making - Lab Data Result diagrams: 07/30/22 23:13 07/30/22 23:13 <Gerardo Perez - Last Filed: 08/02/22 04:22> - Medical Decision Making This patient is a 42-year-old woman presenting with right-sided abdominal pain that she states is identical to previous episode of diverticulitis. The patient's exam does show some mild right tenderness, mainly in the lower abdomen. There is no peritoneal sign on the exam. Given the history and physical, labs and computed tomography scan are obtained. The exact etiology of the patient's discomfort is not identified. She states that this also happened with the earlier episode of diverticulitis. In light of this, patient will be given course of antibiotics and close follow-up. We discussed appropriate further care and follow-up as well as return parameters and she will deftly return if there is no improvement or if there is worsening in anyway or new symptoms. Was pt. sent in by a medical professional or institution? @ -no Did you speak to anyone other than the patient for history? @ -[No Did you review nursing and triage notes? @ -[agree Were old charts reviewed? @ -[No Differential Diagnosis? @ -[Differential Abdominal Pain Women: Appendicitis, Cholecystitis, diverticulosis, ischemic bowel, pancreatitis, hepatitis, UTI, gastroenteritis, AAA, incarcerated hernia, bowel obstruction, constipation, inflammatory bowel, hepatitis, peptic ulcer disease, splenic infarction, perforated viscus, vulvitis, ovarian torsion, PID, kidney stone, placenta abruption, this is not meant to be an all-inclusive list EKG interpreted by me (3pts min.)? @ -[none] X-rays interpreted by me (1pt min.)? @ -[See chart CT interpreted by me (1pt min.)? @ -[none] U/S interpreted by me (1pt. min.)? @ -[none] What testing was considered but not performed? (CT, X-rays, U/S, labs)? Why? @ [ What meds were considered but not given? Why? @ -[none] Did you discuss the management of the patient with other professionals? @ -No Did you reconcile home meds? @ -[none] Was smoking cessation discussed for >3mins.? @ -[none] Was critical care preformed (if so, how long)? @ -[none] Were there social determinants of health that impacted care today? How? (Homelessness, low income, unemployed, alcoholism, drug addiction, conde sportation, low edu. Level, literacy, decrease access to med. care, [facility], rehab)? @ -[No Was there de-escalation of care discussed even if they declined? (Discuss DNR or withdrawal of care, Hospice)? @ -[No What co-morbidities impacted this encounter? (DM, HTN, Smoking, COPD, CAD, Cancer, CVA, Hep., AIDS, mental health diagnosis, sleep apnea, morbid obesity)? @ -[None Was patient admitted / discharged? @ -[Discharged Undiagnosed new problem with uncertain prognosis? @ -[none] Drug Therapy requiring intensive monitoring for toxicity (Heparin, Nitro, Insulin, Cardizem)? @ -[none] Were any procedures done? @ -[none] Diagnosis/symptom? @ -[Acute abdominal pain Acute, or Chronic, or Acute on Chronic? @ -[Acute Uncomplicated (without systemic symptoms) or Complicated (systemic symptoms)? @ -[Uncomplicated Side effects of treatment? @ -[none] Exacerbation, Progression, or Severe Exacerbation] @ -[no] Poses a threat to life or bodily function? @ -[no] (Gerardo Perez) - Lab Data Lab Results 07/30/22 07/30/22 07/30/22 Range/Units 23:13 23:13 23:13 WBC 12.0 H (3.8-10.6) k/uL RBC 4.39 (3.80-5.40) m/uL Hgb 13.6 (11.4-16.0) gm/dL Hct 39.9 (34.0-46.0) % MCV 90.8 (80.0-100.0) fL MCH 30.9 (25.0-35.0) pg MCHC 34.0 (31.0-37.0) g/dL RDW 12.9 (11.5-15.5) % Plt Count 225 (150-450) k/uL MPV 7.9 Neutrophils % 65 % Lymphocytes % 24 % Monocytes % 7 % Eosinophils % 2 % Basophils % 1 % Neutrophils # 7.8 H (1.3-7.7) k/uL Lymphocytes # 2.8 (1.0-4.8) k/uL Monocytes # 0.9 (0-1.0) k/uL Eosinophils # 0.2 (0-0.7) k/uL Basophils # 0.1 (0-0.2) k/uL Sodium 139 (137-145) mmol/L Potassium 4.0 (3.5-5.1) mmol/L Chloride 106 (98-107) mmol/L Carbon Dioxide 26 (22-30) mmol/L Anion Gap 7 mmol/L BUN 14 (7-17) mg/dL Creatinine 0.84 (0.52-1.04) mg/dL Est GFR (CKD-EPI)AfAm >90 (>60 ml/min/1.73 sqM) Est GFR (CKD-EPI)NonAf 87 (>60 ml/min/1.73 sqM) Glucose 105 H (74-99) mg/dL Plasma Lactic Acid Jack 0.8 (0.7-2.0) mmol/L Calcium 8.9 (8.4-10.2) mg/dL Total Bilirubin 0.6 (0.2-1.3) mg/dL AST 18 (14-36) U/L ALT 23 (4-34) U/L Alkaline Phosphatase 64 (38-126) U/L Total Protein 7.3 (6.3-8.2) g/dL Albumin 4.1 (3.5-5.0) g/dL Amylase 48 (30-110) U/L Lipase 75 (23-300) U/L Urine Color Urine Appearance (Clear) Urine pH (5.0-8.0) Ur Specific [place] (1.001-1.035) Urine Protein (Negative) Urine Glucose (UA) (Negative) Urine Ketones (Negative) Urine Blood (Negative) Urine Nitrite (Negative) Urine Bilirubin (Negative) Urine Urobilinogen (<2.0) mg/dL Ur Leukocyte Esterase (Negative) Urine RBC (0-5) /hpf Urine WBC (0-5) /hpf Ur Squamous Epith Cells (0-4) /hpf Amorphous Sediment (None) /hpf Hyaline Casts (0-2) /lpf Urine Mucus (None) /hpf 07/30/22 Range/Units 23:13 WBC (3.8-10.6) k/uL RBC (3.80-5.40) m/uL Hgb (11.4-16.0) gm/dL Hct (34.0-46.0) % MCV (80.0-100.0) fL MCH (25.0-35.0) pg MCHC (31.0-37.0) g/dL RDW (11.5-15.5) % Plt Count (150-450) k/uL MPV Neutrophils % % Lymphocytes % % Monocytes % % Eosinophils % % Basophils % % Neutrophils # (1.3-7.7) k/uL Lymphocytes # (1.0-4.8) k/uL Monocytes # (0-1.0) k/uL Eosinophils # (0-0.7) k/uL Basophils # (0-0.2) k/uL Sodium (137-145) mmol/L Potassium (3.5-5.1) mmol/L Chloride (98-107) mmol/L Carbon Dioxide (22-30) mmol/L Anion Gap mmol/L BUN (7-17) mg/dL Creatinine (0.52-1.04) mg/dL Est GFR (CKD-EPI)AfAm (>60 ml/min/1.73 sqM) Est GFR (CKD-EPI)NonAf (>60 ml/min/1.73 sqM) Glucose (74-99) mg/dL Plasma Lactic Acid Jack (0.7-2.0) mmol/L Calcium (8.4-10.2) mg/dL Total Bilirubin (0.2-1.3) mg/dL AST (14-36) U/L ALT (4-34) U/L Alkaline Phosphatase (38-126) U/L Total Protein (6.3-8.2) g/dL Albumin (3.5-5.0) g/dL Amylase (30-110) U/L Lipase (23-300) U/L Urine Color Yellow Urine Appearance Cloudy H (Clear) Urine pH 5.5 (5.0-8.0) Ur Specific [place] 1.029 (1.001-1.035) Urine Protein Trace H (Negative) Urine Glucose (UA) Negative (Negative) Urine Ketones Trace H (Negative) Urine Blood Negative (Negative) Urine Nitrite Negative (Negative) Urine Bilirubin Negative (Negative) Urine Urobilinogen 2.0 (<2.0) mg/dL Ur Leukocyte Esterase Negative (Negative) Urine RBC 1 (0-5) /hpf Urine WBC 2 (0-5) /hpf Ur Squamous Epith Cells 12 H (0-4) /hpf Amorphous Sediment Rare H (None) /hpf Hyaline Casts 1 (0-2) /lpf Urine Mucus Many H (None) /hpf Disposition <Carola Moctezuma - Last Filed: 07/30/22 22:57> Is patient prescribed a controlled substance at d/c from ED?: No <Gerardo Perez - Last Filed: 08/02/22 04:22> Clinical Impression: Abdominal pain Disposition: HOME SELF-CARE Condition: Good Instructions (If sedation given, give patient instructions): Abdominal Pain (ED) Prescriptions: Amoxic-Pot Clav 875-125Mg [Augmentin 875-125] 1 tab PO Q12HR 1 Days #14 tab Referrals: Corey Mcdaniels MD [Primary Care Provider] - 1-2 days
[2022-07-30 22:58] VITALS: TEMP 98.3
[2022-07-30 23:28] LABS: Basophils # (A) 0.1 k/uL (0-0.2); Basophils % (A) 1 %; Eosinophils # (A) 0.2 k/uL (0-0.7); Eosinophils % (A) 2 %; HCT 39.9 % (34.0-46.0); HGB 13.6 gm/dL (11.4-16.0); Lymphocytes # (A) 2.8 k/uL (1.0-4.8); Lymphocytes % (A) 24 %; MCH 30.9 pg (25.0-35.0); MCV 90.8 fL (80.0-100.0); Mean Platelet Volume 7.9; Monocytes # (A) 0.9 k/uL (0-1.0); Monocytes % (A) 7 %; Neutrophils # (A) 7.8 k/uL (1.3-7.7); Neutrophils % (A) 65 %; Platelet Count 225 k/uL (150-450); RBC 4.39 m/uL (3.80-5.40); RDW 12.9 % (11.5-15.5)
[2022-07-30 23:39] LABS: ALT 23 U/L (4-34); AST 18 U/L (14-36); African American GFR (CKD) >90 (>60 ml/min/1.73 sqM); Albumin 4.1 g/dL (3.5-5.0); Alkaline Phosphatase 64 U/L (38-126); Amylase 48 U/L (30-110); Anion Gap 7 mmol/L; Blood Urea Nitrogen 14 mg/dL (7-17); Calcium 8.9 mg/dL (8.4-10.2); Carbon Dioxide 26 mmol/L (22-30); Chloride 106 mmol/L (98-107); Glucose 105 mg/dL (74-99); Lipase 75 U/L (23-300); Non-African American GFR(CKD) 87 (>60 ml/min/1.73 sqM); Sodium 139 mmol/L (137-145); Total Bilirubin 0.6 mg/dL (0.2-1.3); Total Protein 7.3 g/dL (6.3-8.2)
[2022-07-31] MEDS ORDERED: MORPHINE SULFATE 4 MG/ML SYRINGE IM STA (01:45)
--- NOTE | 2022-07-31 02:08 | CT ---
EXAMINATION TYPE: CT abdomen pelvis wo con DATE OF EXAM: 07/31/2022 COMPARISON: 04/05/2019 HISTORY: Abdominal pain x [address] DLP: 1511.9 mGycm Automated exposure control for dose reduction was used. Images obtained from the diaphragm to the floor the pelvis with no contrast. Lung bases are clear. No pleural effusion. Heart size is normal. No pericardial effusion. There is sm all hiatal hernia. Liver spleen stomach pancreas appear intact. Gallbladder is intact. Bile ducts are nondilated. There is no adrenal mass. Kidneys have normal size and contour. No hydronephrosis. Ureters are not di lated. No retroperitoneal adenopathy. Bladder distends smoothly. No inguinal hernia. There are clips from tubal ligation. Uterus is anteverted. No free fluid in the pelvis. No pelvic mass. Appendix is medial and posterior and appears normal. There is 2 cm fat-containing umbilical hernia. There is no mesenteric edema. No ascites or free air. No sign of a bowel obstruction. There is some c olonic diverticulosis without diverticulitis. Lumbar vertebra have normal alignment. No compression fracture. Disc spaces are fairly normal. The [place] pelvis is intact. The hip joints are intact. IMPRESSION: No renal stone or obstruction. Normal appendix. Colonic moderate diverticulosis. There is clearing of the diverticulitis in the proximal sigmoid colon compared to old exam.
[2022-07-31 02:41] LABS: Amorphous Sediment,Urine Rare /hpf; Appearance,Urine Cloudy (Clear); Bilirubin,Urine Negative (Negative); Blood,Urine Negative (Negative); Color,Urine Yellow; Glucose,Urine (UA) Negative (Negative); Hyaline Casts,Urine 1 /lpf (0-2); Ketones,Urine Trace (Negative); Leukocyte Esterase,Urine Negative (Negative); Mucus,Urine Many /hpf; Nitrite,Urine Negative (Negative); PH, Urine 5.5 (5.0-8.0); Protein,Urine Trace (Negative); RBC,Urine 1 /hpf (0-5); Specific Gravity,Urine 1.029 (1.001-1.035); Squamous Epithelial Cell,Urine 12 /hpf (0-4); WBC,Urine 2 /hpf (0-5)
[2022-07-31 03:23] VITALS: BP 155/92; PULSE 87; RESP 16
== END 2022-07-31 03:24 | disposition home or self-care (01) ==
LOC: EC 22:06
DX: R10.31 Right lower quadrant pain (principal); I10 Essential (primary) hypertension; G47.30 Sleep apnea, unspecified; F12.90 Cannabis use, unspecified, uncomplicated; F17.290 Nicotine dependence, other tobacco product, uncomplicated; Z88.5 Allergy status to narcotic agent; Z88.1 Allergy status to other antibiotic agents
CPT/HCPCS: 36415; 74176; 80053; 81001; 82150; 83605; 83690; 85025; 96372; 99284

== ENCOUNTER 2023-09-14 16:32 | Emergency (ER) | payer OTHER ==
--- NOTE | 2023-09-14 16:46 | ED ---
Recheck HPI - General Chief Complaint: Dizziness Stated Complaint: light-headed/dizziness/weakness Time Seen by Provider: 09/14/23 16:44 Source: patient, RN notes reviewed, old records reviewed Mode of arrival: ambulatory Limitations: no limitations - History of Present Illness Initial Comments: This is a 43-year-old female to ER for evaluation of headache headaches with dizziness. A few days of bad symptoms not feeling like herself lightheaded at times but no cough or shortness of breath generalized bodyaches and pains, patient has generalized dizziness room spinning lightheadedness feels like she could pass out and does not feel well. Patient states she has not been feeling right and blood pressure has been off despite taking blood pressure medication MD Complaint: other (This lightheadedness headaches) -: days(s) (2) Returns Today for: persistent/worsening pain related to initial visit Symptoms Since Prior Visit: worsening pain, worsening swelling, worsening redness, fever Associated Symptoms: none Treatments Prior to Arrival: other (0) - Related Data Home Medications Medication Instructions Recorded Confirmed lisinopriL [Zestril] 20 mg PO DAILY 07/29/20 08/02/20 Ibuprofen [Motrin] 800 mg PO Q6HR PRN 08/02/20 08/02/20 Previous Rx's Medication Instructions Recorded Acetaminophen Tab [Tylenol Tab] 500 mg PO Q6H PRN #30 tablet 07/29/20 Ondansetron Odt [Zofran Odt] 4 mg PO Q8HR PRN #14 tab 07/29/20 hydroCHLOROthiazide [Hydrodiuril] 50 mg PO DAILY #90 tab 11/01/20 Ibuprofen [Motrin] 600 mg PO Q8HR PRN #30 tab 07/09/22 Amoxic-Pot Clav 875-125Mg 1 tab PO Q12HR 1 Days #14 tab 07/31/22 [Augmentin 875-125] Allergies Allergy/AdvReac Type Severity Reaction Status Date / Time codeine Allergy Itching Verified 09/14/23 16:39 ertapenem Allergy Rash/Hives Verified 09/14/23 16:39 Review of Systems ROS Statement: Those systems with pertinent positive or pertinent negative responses have been documented in the HPI. ROS Other: All systems not noted in ROS Statement are negative. Past Medical History Past Medical History: GERD/Reflux, Hyperlipidemia, Hypertension, Sleep Apnea/CPAP/BIPAP Additional Past Medical History / Comment(s): diverticulitis perforated bowel no surgery. (states pin hole)., hx of midline IV access -states her body rejected it . History of Any Multi-Drug Resistant Organisms: None Reported Past Surgical History: Section, Hernia Repair Additional Past Surgical History / Comment(s): x3 Past Anesthesia/Blood Transfusion Reactions: No Reported Reaction, Motion Sickness Past Psychological History: ADD/ADHD Smoking Status: Vaper Past Alcohol Use History: Occasional Past Drug Use History: Marijuana - Past Family History Mother Family Medical History: AFIB Additional Family Medical History / Comment(s): coronary artery disease. Father Family Medical History: Cancer Additional Family Medical History / Comment(s): coronary artery disease and skin cancer. General Exam Limitations: no limitations General appearance: alert, in no apparent distress, anxious Head exam: Present: atraumatic, normocephalic, normal inspection Eye exam: Present: normal appearance, PERRL, EOMI. Absent: scleral icterus, conjunctival injection, periorbital swelling ENT exam: Present: normal exam, mucous membranes moist Neck exam: Present: normal inspection. Absent: tenderness, meningismus, lymphadenopathy Respiratory exam: Present: normal lung sounds bilaterally. Absent: respiratory distress, wheezes, rales, rhonchi, stridor Cardiovascular Exam: Present: regular rate, normal rhythm, normal heart sounds. Absent: systolic murmur, diastolic murmur, rubs, gallop, clicks GI/Abdominal exam: Present: soft, normal bowel sounds. Absent: distended, tenderness, guarding, rebound, rigid Extremities exam: Present: normal inspection, full ROM, normal capillary refill. Absent: tenderness, pedal edema, joint swelling, calf tenderness Back exam: Present: normal inspection Neurological exam: Present: alert, oriented X3, CN II-XII intact Psychiatric exam: Present: normal affect, normal mood Skin exam: Present: warm, dry, intact, normal color. Absent: rash Course Vital Signs 09/14/23 09/14/23 16:35 18:58 Temperature 98.3 F Pulse Rate 87 74 Respiratory 20 18 Rate Blood Pressure 154/93 135/70 O2 Sat by Pulse 99 97 Oximetry - Reevaluation(s) Reevaluation #1: 09/14/23 18:33 Medical record is reviewed Reevaluation #2: 09/14/23 18:33 Patient symptoms improved Reevaluation #3: Spoke with patient regarding findings she is agreeable and questions are answered Reevaluation #4: Was pt. sent in by a medical professional or institution ([facility] Flynn, [employer], urgent care, hospital, or jail...) When possible be specific @ -no Did you speak to anyone other than the patient for history (EMS, parent, family, police, friend...)? What history was obtained from this source @ -no Did you review nursing and triage notes (agree or disagree)? Why? @ -agree Are old charts reviewed (outside hosp., previous admission, EMS record, old EKG, old radiological studies, urgent care reports/EKG's, jail records)? Report findings @ -yes Differential Diagnosis (chest pain, altered mental status, abdominal pain women, abdominal pain men, vaginal bleeding, weakness, fever, dyspnea, syncope, headache, dizziness, GI bleed, back pain, seizure, CVA, palpatations, mental health, musculoskeletal)? @ -prior EKG interpreted by me (3pts min.). @ -yes X-rays interpreted by me (1pt min.). @ -yes negative for acute disease CT interpreted by me (1pt min.). @ -Yes negative for acute disease U/S interpreted by me (1pt. min.). @ -no What testing was considered but not performed or refused? (CT, X-rays, U/S, labs)? Why? @ -none What meds were considered but not given or refused? Why? @ -none Did you discuss the management of the patient with other professionals (professionals i.e. [facility]ES Flynn, [employer], lab, RT, psych nurse, psychiatric social worker, operations program manager, teacher, truant officer, vocational case manager)? Give summary @ -no Was smoking cessation discussed for >3mins.? @ -no Was critical care preformed (if so, how long)? @ -no Were there social determinants of health that impacted care today? How? (Homelessness, low income, unemployed, alcoholism, drug addiction, transportation, low edu. Level, literacy, decrease access to med. care, long term, rehab)? @ -none Was there de-escalation of care discussed even if they declined (Discuss DNR or withdrawal of care, Hospice)? DNR status @ -no What co-morbidities impacted this encounter? (DM, HTN, Smoking, COPD, CAD, Cancer, CVA, ARF, Chemo, Hep., AIDS, mental health diagnosis, sleep apnea, morbid obesity)? @ -none Was patient admitted / discharged? Hospital course, mention meds given and route, prescriptions, significant lab abnormalities, going to OR and other pertinent info. @ - 43 female with generalized bodyaches and pains recent episode of dizziness and lightheadedness resolved and then recurrent symptoms today, again patient states she feels off with generalized body aches and pains but has normal testing here in the ER. Patient can be discharged home Discharge Undiagnosed new problem with uncertain prognosis? @ -no Drug Therapy requiring intensive monitoring for toxicity (Heparin, Nitro, Insulin, Cardizem)? @ -no Were any procedures done? @ -no Diagnosis/symptom? @ -Dizziness Acute, or Chronic, or Acute on Chronic? @ -Acute Uncomplicated (without systemic symptoms) or Complicated (systemic symptoms)? @ -Complicated Side effects of treatment? @ -no Exacerbation, Progression, or Severe Exacerbation? @ -exacerbation Poses a threat to life or bodily function? How? (Chest pain, [place], [place], pneumonia, PE, COPD, DKA, ARF, appy, cholecystitis, CVA, Diverticulitis, Homicidal, Suicidal, threat to staff... and all critical care pts) @ -no Reevaluation #5: differential Dizziness: Benign paroxysmal positional Vertigo, Menieres disease, otitis media, acoustic neuroma, vertebrobasilar insufficiency, cerebellar stroke, encephalitis, hypovolemic, arrhythmia, coronary artery syndrome, anemia, this is not meant to be an all-inclusive list Medical Decision Making - Medical Decision Making 43 female with generalized bodyaches and pains recent episode of dizziness and lightheadedness resolved and then recurrent symptoms today, again patient states she feels off with generalized body aches and pains but has normal testing here in the ER. Patient can be discharged home - Lab Data Result diagrams: 09/14/23 16:58 09/14/23 16:58 Lab Results 09/14/23 09/14/23 09/14/23 Range/Units 16:58 16:58 16:58 WBC 15.3 H (3.8-10.6) k/uL RBC 4.34 (3.80-5.40) m/uL Hgb 14.1 (11.4-16.0) gm/dL Hct 40.9 (34.0-46.0) % MCV 94.2 (80.0-100.0) fL MCH 32.4 (25.0-35.0) pg MCHC 34.4 (31.0-37.0) g/dL RDW 13.3 (11.5-15.5) % Plt Count 251 (150-450) k/uL MPV 8.3 Neutrophils % 54 % Lymphocytes % 36 % Monocytes % 6 % Eosinophils % 2 % Basophils % 1 % Neutrophils # 8.2 H (1.3-7.7) k/uL Lymphocytes # 5.5 H (1.0-4.8) k/uL Monocytes # 1.0 (0-1.0) k/uL Eosinophils # 0.3 (0-0.7) k/uL Basophils # 0.1 (0-0.2) k/uL Manual Slide Review Performed RBC Morphology Normal PT (10.0-12.5) sec INR (<1.2) APTT (22.0-30.0) sec Sodium 138 (137-145) mmol/L Potassium 4.3 (3.5-5.1) mmol/L Chloride 110 H (98-107) mmol/L Carbon Dioxide 22 (22-30) mmol/L Anion Gap 6 mmol/L BUN 19 H (7-17) mg/dL Creatinine 0.99 (0.52-1.04) mg/dL Est GFR (CKD-EPI)AfAm 82 (>60 ml/min/1.73 sqM) Est GFR (CKD-EPI)NonAf 71 (>60 ml/min/1.73 sqM) Glucose 116 H (74-99) mg/dL Calcium 8.5 (8.4-10.2) mg/dL Phosphorus 3.8 (2.5-4.5) mg/dL Magnesium 2.0 (1.6-2.3) mg/dL Total Bilirubin 0.6 (0.2-1.3) mg/dL AST 39 H (14-36) U/L ALT 26 (4-34) U/L Alkaline Phosphatase 75 (38-126) U/L Troponin I <0.012 (0.000-0.034) ng/mL Total Protein 6.6 (6.3-8.2) g/dL Albumin 3.7 (3.5-5.0) g/dL Urine Color Urine Appearance (Clear) Urine pH (5.0-8.0) Ur Specific [place] (1.001-1.035) Urine Protein (Negative) Urine Glucose (UA) (Negative) Urine Ketones (Negative) Urine Blood (Negative) Urine Nitrite (Negative) Urine Bilirubin (Negative) Urine Urobilinogen (<2.0) mg/dL Ur Leukocyte Esterase (Negative) Influenza Type A (PCR) (Not Detectd) Influenza Type B (PCR) (Not Detectd) RSV (PCR) (Not Detectd) SARS-CoV-2 (PCR) (Not Detectd) 09/14/23 09/14/23 09/14/23 Range/Units 18:15 18:42 18:42 WBC (3.8-10.6) k/uL RBC (3.80-5.40) m/uL Hgb (11.4-16.0) gm/dL Hct (34.0-46.0) % MCV (80.0-100.0) fL MCH (25.0-35.0) pg MCHC (31.0-37.0) g/dL RDW (11.5-15.5) % Plt Count (150-450) k/uL MPV Neutrophils % % Lymphocytes % % Monocytes % % Eosinophils % % Basophils % % Neutrophils # (1.3-7.7) k/uL Lymphocytes # (1.0-4.8) k/uL Monocytes # (0-1.0) k/uL Eosinophils # (0-0.7) k/uL Basophils # (0-0.2) k/uL Manual Slide Review RBC Morphology PT 10.0 (10.0-12.5) sec INR 0.9 (<1.2) APTT 20.6 L (22.0-30.0) sec Sodium (137-145) mmol/L Potassium (3.5-5.1) mmol/L Chloride (98-107) mmol/L Carbon Dioxide (22-30) mmol/L Anion Gap mmol/L BUN (7-17) mg/dL Creatinine (0.52-1.04) mg/dL Est GFR (CKD-EPI)AfAm (>60 ml/min/1.73 sqM) Est GFR (CKD-EPI)NonAf (>60 ml/min/1.73 sqM) Glucose (74-99) mg/dL Calcium (8.4-10.2) mg/dL Phosphorus (2.5-4.5) mg/dL Magnesium (1.6-2.3) mg/dL Total Bilirubin (0.2-1.3) mg/dL AST (14-36) U/L ALT (4-34) U/L Alkaline Phosphatase (38-126) U/L Troponin I (0.000-0.034) ng/mL Total Protein (6.3-8.2) g/dL Albumin (3.5-5.0) g/dL Urine Color Light Yellow Urine Appearance Clear (Clear) Urine pH 5.5 (5.0-8.0) Ur Specific [place] 1.020 (1.001-1.035) Urine Protein Negative (Negative) Urine Glucose (UA) Negative (Negative) Urine Ketones Negative (Negative) Urine Blood Negative (Negative) Urine Nitrite Negative (Negative) Urine Bilirubin Negative (Negative) Urine Urobilinogen <2.0 (<2.0) mg/dL Ur Leukocyte Esterase Negative (Negative) Influenza Type A (PCR) Not Detected (Not Detectd) Influenza Type B (PCR) Not Detected (Not Detectd) RSV (PCR) Not Detected (Not Detectd) SARS-CoV-2 (PCR) Not Detected (Not Detectd) - EKG Data -: EKG Interpreted by Me (EKG is sinus 74 NE 124 QRS 93 QTc 408) - Radiology Data Radiology results: report reviewed (CT brain and chest x-ray are negative for acute disease), image reviewed Disposition Clinical Impression: Dizziness Disposition: HOME SELF-CARE Condition: Good Instructions (If sedation given, give patient instructions): Dizziness (ED) Is patient prescribed a controlled substance at d/c from ED?: No Referrals: Corey Mcdaniels [Primary Care Provider] - 1-2 days Time of Disposition: 19:00
[2023-09-14 17:25] VITALS: TEMP 98.3
[2023-09-14 17:39] LABS: Basophils # (A) 0.1 k/uL (0-0.2); Basophils % (A) 1 %; Eosinophils # (A) 0.3 k/uL (0-0.7); Eosinophils % (A) 2 %; HCT 40.9 % (34.0-46.0); HGB 14.1 gm/dL (11.4-16.0); Lymphocytes # (A) 5.5 k/uL (1.0-4.8); Lymphocytes % (A) 36 %; MCH 32.4 pg (25.0-35.0); MCHC 34.4 g/dL (31.0-37.0); MCV 94.2 fL (80.0-100.0); Mean Platelet Volume 8.3; Monocytes % (A) 6 %; Neutrophils # (A) 8.2 k/uL (1.3-7.7); Neutrophils % (A) 54 %; Platelet Count 251 k/uL (150-450); RBC 4.34 m/uL (3.80-5.40); RDW 13.3 % (11.5-15.5); WBC 15.3 k/uL (3.8-10.6)
[2023-09-14 17:52] LABS: ALT 26 U/L (4-34); African American GFR (CKD) 82 (>60 ml/min/1.73 sqM); Albumin 3.7 g/dL (3.5-5.0); Anion Gap 6 mmol/L; Blood Urea Nitrogen 19 mg/dL (7-17); Carbon Dioxide 22 mmol/L (22-30); Chloride 110 mmol/L (98-107); Glucose 116 mg/dL (74-99); Non-African American GFR(CKD) 71 (>60 ml/min/1.73 sqM); Phosphorus 3.8 mg/dL (2.5-4.5); Sodium 138 mmol/L (137-145); Total Bilirubin 0.6 mg/dL (0.2-1.3); Total Protein 6.6 g/dL (6.3-8.2)
[2023-09-14 17:53] LABS: AST 39 U/L (14-36); Calcium 8.5 mg/dL (8.4-10.2); Potassium 4.3 mmol/L (3.5-5.1)
[2023-09-14 17:54] LABS: Alkaline Phosphatase 75 U/L (38-126)
--- NOTE | 2023-09-14 17:55 | XR ---
EXAMINATION TYPE: XR chest 2V DATE OF EXAM: 09/14/2023 COMPARISON: 07/29/2020 HISTORY: 43-year-old female with weakness, dizziness, cough TECHNIQUE: PA and lateral views FINDINGS: The cardiomediastinal silhouette, aorta, and pulmonary vasculature are within normal limits. Lungs an d pleural spaces are clear. IMPRESSION: No acute cardiopulmonary process.
[2023-09-14 18:26] LABS: RBC Morphology Normal
[2023-09-14] MEDS: KETOROLAC 15 MG/ML 1 ML VIAL IVP STA (18:37)
[2023-09-14] MEDS: PROCHLORPERAZINE INJ 10 MG/2 ML VIAL IVP STA (18:39)
[2023-09-14 18:51] LABS: INR 0.9 (<1.2)
[2023-09-14 18:52] LABS: Partial Thromboplastin Time 20.6 sec (22.0-30.0)
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
[2023-09-14 19:11] LABS: Appearance,Urine Clear (Clear); Bilirubin,Urine Negative (Negative); Blood,Urine Negative (Negative); Color,Urine Light Yellow; Glucose,Urine (UA) Negative (Negative); Ketones,Urine Negative (Negative); Leukocyte Esterase,Urine Negative (Negative); Nitrite,Urine Negative (Negative); PH, Urine 5.5 (5.0-8.0); Protein,Urine Negative (Negative); Urobilinogen,Urine <2.0 mg/dL (<2.0)
[2023-09-14 19:27] VITALS: BP 135/70; PULSE 74; RESP 18
== END 2023-09-14 19:44 | disposition home or self-care (01) ==
LOC: EC 16:32
DX: R42 Dizziness and giddiness (principal); I10 Essential (primary) hypertension; G47.30 Sleep apnea, unspecified; F17.290 Nicotine dependence, other tobacco product, uncomplicated; F12.90 Cannabis use, unspecified, uncomplicated; Z86.59 Personal history of other mental and behavioral disorders; Z79.899 Other long term (current) drug therapy; Z88.5 Allergy status to narcotic agent; Z88.8 Allergy status to other drugs, medicaments and biological substances; Z20.822 Contact with and (suspected) exposure to COVID-19
CPT/HCPCS: 36415; 93005; 80053; 83735; 84100; 84484; 85025; 85610; 85730; 81003; 87636; 71046; 70450; 99284; 96374; 96375; J0780; J1885

== ENCOUNTER 2023-12-14 20:08 | Emergency (ER) | payer OTHER ==
[2023-12-14 20:20] VITALS: TEMP 98.8
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
[2023-12-14] MEDS: ONDANSETRON ODT 4 MG TAB PO STA (21:06)
[2023-12-14] MEDS: DIPH,PERTUS(ACELL)TETVAC-LF 0.5 ML VIAL IM ONE (21:07)
[2023-12-14] MEDS: ACETAMINOPHEN TAB 500 MG TAB PO STA (23:07)
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
[2023-12-15 00:24] VITALS: BP 165/106; PULSE 78; RESP 18
== END 2023-12-15 00:24 | disposition home or self-care (01) ==
LOC: EC 20:08
DX: S00.83XA Contusion of other part of head, initial encounter (principal); F17.290 Nicotine dependence, other tobacco product, uncomplicated; F12.90 Cannabis use, unspecified, uncomplicated; Z88.5 Allergy status to narcotic agent; Z23 Encounter for immunization; Z88.8 Allergy status to other drugs, medicaments and biological substances; Y04.0XXA Assault by unarmed brawl or fight, initial encounter
CPT/HCPCS: 70450; 72125; 90471; 90715; 99284